=== PATIENT | male | born 1935 | race Caucasian/White ===

== ENCOUNTER 2017-08-10 10:14 | Day surgery (SDC) | payer MEDICARE, OTHER ==
[~2017-08-10] VITALS: Ht 174 cm; Wt 67.2 kg
[2017-08-10] VITALS (7 sets, daily range): BP systolic 118–137; BP diastolic 69–82; PULSE 72–90; RESP 18; TEMP 97.3–98.2; O2SAT 96–98
[~2017-08-10 10:14] MED LIST: ALPH1CAP3 PO; ASPI81TA82 PO; CALTTAB5 PO; CARB1DRO EACH EYE; CARV3.125 PO; DORZO2%O EACH EYE; FISH1000 PO; HYDR-3533 PO; JANU50TA5 PO; LANTUSP SQ; LATA.005%O EACH EYE; LISI-357 PO; MAGN500T4 PO; OMEP20TA PO; PENT400 PO; REST0.05 EACH EYE; ROSU40 PO; TAMS0.4C67 PO; VENL37.5 PO; VITA-13 PO; VITA500S3 SL; ZOLP5TAB3 PO
[2017-08-10] MEDS ORDERED: IOHEXOL 350 MG/ML 100 ML BTL (for Cath Lab) OTHER ONE (10:15)
[2017-08-10] MEDS ORDERED: ASPIRIN 81 MG CHEW TAB PO SCH (11:00)
[2017-08-10 11:21] LABS: AUTOMATED NEUTROPHIL # 5.2 TH/MM3 (1.8-7.7); BASOPHIL # 0.1 TH/MM3 (0-0.2); BASOPHIL % 0.8 % (0.0-2.0); EOSINOPHIL # 0.1 TH/MM3 (0-0.4); EOSINOPHIL % 1.5 % (0.0-4.0); HEMATOCRIT 44.5 % (39.0-51.0); HEMO FLAGS DIFF FINAL; LYMPH % 17.3 % (9.0-44.0); LYMPHOCYTE # 1.3 TH/MM3 (1.0-4.8); MEAN CELL VOLUME 92.9 FL (80.0-100.0); MEAN CORPUSCULAR HEMOGLOBIN 31.2 PG (27.0-34.0); MEAN CORPUSCULAR HGB CONC 33.6 % (32.0-36.0); MONO % 8.7 % (0.0-8.0); NEUT % 71.7 % (16.0-70.0); PLATELET COUNT 184 TH/MM3 (150-450); RED BLOOD COUNT 4.79 MIL/MM3 (4.50-5.90); RED CELL DISTRIBUTION WIDTH 14.2 % (11.6-17.2); WHITE BLOOD COUNT 7.2 TH/MM3 (4.0-11.0)
[2017-08-10 11:24] LABS: INTERNATIONAL NORMALIZED RATIO 0.9 RATIO; PROTHROMBIN TIME - PATIENT 10.1 SEC (9.8-11.6)
[2017-08-10] MEDS ORDERED: VITA100064 PO (11:24)
[2017-08-10] MEDS ORDERED: LISI10TA3 PO (11:24)
[2017-08-10] MEDS ORDERED: MAGN500T2 PO (11:24)
[2017-08-10] MEDS ORDERED: ASPI81CH CHEW (11:24)
[2017-08-10] MEDS ORDERED: SITA50TA PO (11:24)
[2017-08-10] MEDS ORDERED: OMEGCAP PO (11:24)
[2017-08-10] MEDS ORDERED: OMEP20TA PO (11:24)
[2017-08-10] MEDS ORDERED: CARV3.125 PO (11:24)
[2017-08-10] MEDS ORDERED: ALPH600C PO (11:24)
[2017-08-10] MEDS ORDERED: VITA500T4 PO (11:24)
[2017-08-10] MEDS ORDERED: VENL37.5 PO (11:24)
[2017-08-10] MEDS ORDERED: PENT400T PO (11:24)
[2017-08-10] MEDS ORDERED: LATA0.002 EACH EYE (11:24)
[2017-08-10] MEDS ORDERED: TAMS0.4C4 PO (11:24)
[2017-08-10] MEDS ORDERED: ROSU40 PO (11:24)
[2017-08-10] MEDS ORDERED: CALC600T PO (11:24)
[2017-08-10] MEDS ORDERED: DORZ2SOL EACH EYE (11:24)
[2017-08-10] MEDS ORDERED: GABA100C4 PO (11:24)
[2017-08-10] MEDS ORDERED: INSU1INJ18 SQ (11:24)
[2017-08-10 11:36] LABS: BICARBONATE 27.7 MEQ/L (21.0-32.0); POTASSIUM 3.6 MEQ/L (3.5-5.1)
[2017-08-10] MEDS ORDERED: HEPARIN-NS/PF INJ 500 ML ONE (12:51)
[2017-08-10] MEDS ORDERED: HEPARIN SODIUM - IV 10,000 UNITS/10 ML VIAL ONE (13:16)
[2017-08-10] MEDS ORDERED: NITROGLYCERIN INJ 5 ML ONE (13:16)
--- NOTE | 2017-08-10 14:04 | CATHPROC ---
[employer] HIS Report Study Information Study Number Admission Scheduled Start Study Start [id number] Aug 10 2017 10:14AM 08/10/2017 Aug 10 2017 12:15PM Study Type [place] [facility] Left Heart Cath Cardiac Catheterization Admit Source Facility Department Other [facility] - Tub Washer Physician and Clinical Staff Initial Scott Paul Soft Work Cigar Machine Operator Marylu Sparks,RAMAN Recorder Jeannine Reed,RT(R) Recorder Matt Elliott RCIS(BS) Scrub Deisy Russ,RT(R) Procedures Performed Procedure Location (Site) Vessel Name Coronary Angiograms LCA Left Coronary Coronary Angiograms RCA Right Coronary IVUS LEFT MAIN ARTERY-(11 Left Coronary L Heart Cath PTCA ADD ON'S Wire insertion Fem Art (right) Femoral Art Equipment Time Photo Manager Description Size Mfg Part Number Used/Scraped [id number] 13:30 S[employer] CRITICAL CARE WIRE, ASAHI PROWATER 180CM 180CM Used *[id number] TRANSDUCER, TRUWAVE [id number] 13:08 KELLER SOMERS * Used W/STOCKCOCK *[id number] [id number] *[id number] [id number] *[id number] *[id number] 13:08 [employer] INDUSTRIES PACK, CCL CUSTOM * Used *[id number] 13:08 [employer] PACER PEN, SKIN DUAL W/ RULER * Used *[id number] 13:15 [employer] MEDICAL 30 SIVAKUMAR INDEFLATOR Used *[id number] 13:18 [employer] MEDICAL SHEATH, FR6.5 PRELUDE 11CM FR 6.5 038ACT Used *[id number] 13:08 [employer] MEDICAL WIRE, 3MMJ .035 180CM 180CM Used *[id number] 13:08 NAMIC MANIFOLD, 4 PORT * Used *[id number] 13:08 NYCOMED OMNIPAQUE, 350 MG, 150ML 150ML [id number] Used [id number] 13:08 RAINES MEDICAL BLANKET,WARM AIR CCL * Used *[id number] 13:08 TERUMO MEDICAL SHEATH, FR4 TERUMO (10CM) FR 4 Used *[id number] 13:20 VOL[place]O CATHETER, VISION PV .018 55085 Used Equipment Model, Serial, Lot Number and Expiration Data Description Model Number Serial Number Lot Number Expiration Date CATHETER, VISION PV .018 [id number] 01-23-2019 History: Current Medications Medication Dosage/Unit Route Frequency Last Date/Time Taken LISINOPRIL Insulin CRESTOR ASA History: Allergies Allergy Reaction No Known Allergies History: Risk Factors Family History of Hypertension Dyslipidemia Previous ND Previous Heart Failure Premature CAD Yes Yes Yes No No Prior Valve Prior PCI Prior PCIDate Prior CABG Surgery No Yes 12/24/2009 No Cerebrovascular Peripheral Artery Chronic Lung On Dialysis Diabetes Diabetes Therapy Disease Disease Disease No No No No Yes Insulin History: Symptoms/Diagnosis Selection Items Chest pain History: Stress Tests Stress or Imaging Studies Performed Yes Standard Exercise Stress Test No Stress Echo No Stress Test SPECT Stress Test SPECT Result Stress Test SPECT Ischemia Risk/Extent Yes Positive High Stress Test CMR No Cardiac CTA Coronary Calcium Score No No History: Other Disease Selection Items CAD History: Other Current Smoker Method Quit Packs a Day Years Used Pack Years No Cigarettes 20 Years Ago 2 40 80 Labs Hgb (g/dl) Hct (%) WBC (l/cumm) Platelets (thousands) 11.60-17.00 35.00-51.00 4.00-11.00 150.00-450.00 15.0 44.5 7.2 184 Glucose (mg/dl) BUN (mg/dl) Creatinine (mg/dl) BUN:Creatinine (1:x) 74.00-106.00 7.00-18.00 0.50-1.30 10.00-20.00 166 12 0.7 17.1 Na (meq/l) K (meq/l) 136.00-145.00 3.50-5.10 142 3.6 CPK-MB (ng/ML) 0.50-3.60 Not Drawn Medication Medication Total Dose (Bolus/Oral) Medication Total Dosage/Unit 1% XYLOCAINE 20 mL Medications (Bolus/Oral) Medication Time Given Dosage/Unit Administered By Reason 1% XYLOCAINE 08/10/2017 1:06:53 PM 20 mL Scott Aviles 20 mL 1% XYLOCAINE given by Scott Aviles in Right Groin via Subcutaneous. Medication (Drip) Medication Time Given Dosage/Unit Concentration/Unit Diluent (ml) Solution 08/10/2017 12:26:26 IV Solutions 0 mL (IV) 500 NaCl .9 PM Patient arrived on IV Solutions in Left Antecubital via Peripheral IV. Pump/Drip Flow = 20 ml/hr usin g NaCl .9. Ordered by Scott Aviles. Initial Case Assessment Cardiovascular HR Rhythm NIBP Chest Pain 75 reg 110/61 0 Edema Present Skin color Skin None Normal Warm Circulatory - Right Pulses Dorsalis Pedis Posterior Tibial Femoral 1 d 3 Scale (0,1,2,3,4,d) Circulatory - Left Pulses Dorsalis Pedis Posterior Tibial Femoral 1 d 3 Scale (0,1,2,3,4,d) Circulatory - Lower Extremities Color Lower Right Color Lower Left Normal Normal Neurological State Oriented to time-place- Alert Moves all extremities person Respiration - General Respiration Rate SpO2 (%) (B/min) 8 97 Final Case Assessment Cardiovascular HR Rhythm NIBP Chest Pain 75 reg 110/61 0 Edema Present Skin color Skin None Normal Warm Circulatory - Right Pulses Dorsalis Pedis Posterior Tibial Femoral 1 d 3 Scale (0,1,2,3,4,d) Circulatory - Left Pulses Dorsalis Pedis Posterior Tibial Femoral 1 d 3 Scale (0,1,2,3,4,d) Circulatory - Lower Extremities Color Lower Right Color Lower Left Normal Normal Neurological State Oriented to time-place- Alert Moves all extremities person Respiration - General Respiration Rate SpO2 (%) (B/min) 8 97 Chronological Log Time Study Chronological Log 12:26:00 Patient arrived via Bed. 12:26:01 Patient Name, D.O.B, / Armband Verified By R.N. 12:26:02 Consent signed by the physician and the patient and verified by the Tub Washer staff. 12:26:03 Pre-op and post- op instructions given; patient acknowledges understanding of instructions. 12:26:14 Immediate Presedation assesment performed by physician. 12:26:18 Patient has been NPO for More than 6Hrs. Skin Breakdown-none 12:26:20 12:26:21 Patient Warmer Placed on the Table. 12:26:25 A # 20 IV was noted in the Antecubital (left). Grade = 0 Patient arrived on IV Solutions in Left Antecubital via Peripheral IV. Pump/Drip Flow = 20 ml/h r using NaCl .9. Ordered 12:: by Scott Aviles. 12:26:26 History and physical on the chart or being dictated. Assessment: Initial Case, HR=75 BPM, Rhythm=reg, YPVV=611/61 mmhg, Chest Pain=0, Edema=None, [place]=Normal, Skin = Warm Right Pulses: Wilder Ped=1, Post Tib=d, Femoral=3 Left Pulses: Wilder Ped=1, Post Tib=d, Femoral=3 12:26:27 Lower Right Extremities: Color=Normal Lower Left Extremities: Color=Normal Neurological: State=Alert, Ox3, MADDOX Respiration: Resp=8 B/min, SpO2=97 % 12:45:58 Reference ECG taken Vitals capture started with the following parameters, Patient=Adult, Interval=5 min, Initial Pr jescup=559 mmHg, 12:46:00 Deflation Rate=5 mmHg, Cuff placed on right Arm 12:46:42 HR=72 bpm, KREF=002/61 mmhg, SpO2=97.0 %, Resp=15 B/min, Pain=0, Gomez=10, Bae=2 12:49:17 Bilateral groins prepped with 2% chlorhexidine, and draped after a 3 minute waiting time. 12:49:23 MD paged 12:51:29 HR=79 bpm, UKDT=132/77 mmhg, SpO2=98.0 %, Resp=23 B/min, Pain=0, Gomez=10, Bae=2 12:54:49 Pressure channel 1 zeroed. 12:56:30 HR=73 bpm, BCNS=397/65 mmhg, SpO2=98.0 %, Resp=11 B/min, Pain=0, Gomez=10, Bae=2 13:01:27 HR=78 bpm, QXGG=653/76 mmhg, SpO2=98.0 %, Resp=14 B/min, Pain=0, Gomez=10, Bae=2 13:03:05 MD arrived. Time Out. Correct patient, correct procedure, correct physician, power injector not loaded with contrast with surgical 13:06:25 team present. Time Out Concurred by MD and individual staff in procedure. 13:06:30 HR=77 bpm, SPEN=577/81 mmhg, SpO2=98.0 %, Resp=23 B/min, Pain=0, Gomez=10, Bae=2 13:06:33 Case Start 13:06:46 Verbal Stimulation=2 Physical Stimulation=2 Airway=2 Respiration=2 TOTAL=8. (0=absent, 1=li mited, 2=present) 13:06:53 20 mL 1% XYLOCAINE given by Scott Aviles in Right Groin via Subcutaneous. 13:07:21 Access site was Right Femoral Artery. 13:07:25 A wire was inserted via Fem Art (right). 13:07:27 A SHEATH, FR4 TERUMO (10CM) FR 4 was advanced into the Fem Art (right) using the [place]o us technique. A JR 4.0 INFINITI CATHETER FR 4 was advanced over a wire. OMNIPAQUE, 350 MG, 150ML 150ML was us ed for 13:08:13 injections. Recorded Pressure: LV, HR=73, Condition=Condition 1 13:09:04 (Left Ventricle) LV 120/3/10 Recorded Pressure: LV, Ao, HR=74, Condition=Condition 1 13:09:09 (Left Ventricle) LV 120/3/10, (Aorta) Ao 129/63/91 13:09:45 The RCA was injected and visualized at various angles. OMNIPAQUE, 350 MG, 150ML 150ML used . Recorded Pressure: Ao, HR=75, Condition=Condition 1 13:09:53 (Aorta) Ao 123/62/87 13:11:33 HR=78 bpm, RWNQ=141/69 mmhg, SpO2=97.0 %, Resp=13 B/min, Pain=0, Gomez=10, Bae=2 13:13:08 Catheter was removed 13:13:09 A JL 4.0 INFINITI CATHETER FR 4 was advanced over a wire. contrast was used for injections. 13:15:04 The LCA was injected and visualized at various angles. OMNIPAQUE, 350 MG, 150ML 150ML used . 13:15:18 OMNIPAQUE, 350 MG, 150ML 150ML and 30 SIVAKUMAR INDEFLATOR added. 13:15:30 Catheter was removed 13:16:34 HR=77 bpm, LQOQ=980/75 mmhg, SpO2=98.0 %, Resp=13 B/min, Pain=0, Gomez=10, Bae=2 A SHEATH, FR6.5 PRELUDE 11CM FR 6.5 was exchanged in the Fem Art (right). This was necessary in order to 13:17:03 accomodate a larger catheter. 13:21:33 HR=74 bpm, YHRO=265/70 mmhg, SpO2=99.0 %, Resp=16 B/min, Pain=0, Gomez=10, Bae=2 A XB 3.5 GUIDE CATHETER FR 6 was advanced over a wire. OMNIPAQUE, 350 MG, 150ML 150ML was used for 13:22:36 injections. 13:26:36 HR=73 bpm, NYTU=983/68 mmhg, SpO2=99.0 %, Resp=14 B/min, Pain=0, Gomez=10, Bae=2 13:28:25 Activated Clotting Time Drawn 13:29:20 A WIRE, Compete PROWATER 180CM 180CM was inserted via Fem Art (right). 13:31:00 An CATHETER, VISION PV .018 was advanced through the lesion. Images saved onto IVUS hard d rive Recorded Pressure: Ao, HR=69, Condition=Condition 1 13:31:08 (Aorta) Ao 135/63/92 13:31:35 HR=71 bpm, VCXM=525/68 mmhg, SpO2=98.0 %, Resp=14 B/min, Pain=0, Gomez=10, Bae=2 13:32:00 IVUS in progress using CATHETER, VISION PV .018 13:33:32 IVUS catheter removed 13:36:38 HR=70 bpm, RGKV=244/66 mmhg, RdZ9=620.0 %, Resp=17 B/min, Pain=0, Gomez=10, Bae=2 13:40:00 Case End 13:40:00 Activated Clotting Time Drawn 13:41:39 HR=72 bpm, DRFQ=461/80 mmhg, SpO2=99.0 %, Resp=12 B/min, Pain=0, Gomez=10, Bae=2 13:42:38 ACT (Normal Range 90-180) = 248 13:46:38 HR=70 bpm, TSSP=151/71 mmhg, SpO2=99.0 %, Resp=21 B/min, Pain=0, Gomez=10, Bae=2 13:51:40 HR=72 bpm, PLSQ=777/73 mmhg, SpO2=98.0 %, Resp=13 B/min, Pain=0, Gomez=10, Bae=2 Assessment: Final Case, HR=75 BPM, Rhythm=reg, MZNC=423/61 mmhg, Chest Pain=0, Edema=None, Rogers r=Normal, Skin = Warm Right Pulses: Wilder Ped=1, Post Tib=d, Femoral=3 Left Pulses: Wilder Ped=1, Post Tib=d, Femoral=3 13:55:20 Lower Right Extremities: Color=Normal Lower Left Extremities: Color=Normal Neurological: State=Alert, Ox3, MADDOX Respiration: Resp=8 B/min, SpO2=97 % 13:56:37 HR=80 bpm, DMVW=557/95 mmhg, SpO2=99.0 %, Resp=15 B/min, Pain=0, Gomez=10, Bae=2 13:59:13 In the Fem Art (right) the SHEATH, FR6.5 PRELUDE 11CM FR 6.[address] by Scott Ramirez. 13:59:24 Sterile dressing applied to site 13:59:25 No case complications noted. 13:59:26 Cine recording checked. 13:59:28 Bedside Report will be given. 13:59:33 Contrast Scanned 13:59:38 A Left Heart Cath was performed. 13:59:44 Patient moved to [facility] End Study - Contrast Media Used In Study Contrast Total Opened (mL) Total Used (mL) Total Wasted (mL) Omnipaque 100 100 0 End Study - Maximum Contrast Load Max Contrast Load (mL) 488.6 End Study - Radiation Exposure Fluoro Time (minutes) 3.9 End Study - Patient Disposition Complications Transferred To Telemetry Bed
[2017-08-10] MEDS ORDERED: SODIUM CHLORIDE 0.9% FLUSH 10 ML FLUSH IV FLUSH PRN (14:15)
[2017-08-10] MEDS ORDERED: MISC INFORMATION XX ONE (14:15)
--- NOTE | 2017-08-10 14:58 | MA ---
cc: LISSET GRIMES M.D. DATE: 08/10/2017 PROCEDURE 1. Left heart catheterization. 2. Left ventriculography. 3. Coronary arteriography. 4. IVUS of the left main coronary artery. INDICATION Coronary artery disease, cardiomyopathy, diabetes mellitus, new onset cardiac symptoms of chest pain at rest, unstable angina, [place] Cardiovascular Society class 4 angina, CAD status post multiple PCI, large fixed defect in the posterior wall of the femoral apex, EF 49%. DETAILS OF PROCEDURE The patient was brought to the cardiac catheterization laboratory and prepped and draped in the usual sterile fashion. 10 cc of 1% lidocaine was used to locally anesthetize the right common femoral artery. A 4 Croatian sheath was successfully placed in the right common femoral artery. 4 Croatian JR4 and JL4 catheters were used to perform left and right coronary angiography and left venriculography. FINDINGS The LV pressure is 120/5-8. Ejection fraction 50%. The posterior wall is moderate to severely hypokinetic. The right coronary is fibrocalcific fluoroscopically in the proximal to mid segment. There is a focal 80% stenosis in the proximal segment. A long tubular 40-50% stenosis in the proximal to mid segment. The distal segment has mild diffuse disease to 30% angiographically. The right posterior descending coronary artery has a long ostial proximal 70% stenosis with a 45 degree angulation off the right WILLY which is a moderate-sized vessel. The left main coronary artery is heavily calcified fluoroscopically with a large filling defect in the distal segment of the left main. The left circumflex vessel has mild diffuse disease in the proximal segment up to 20% angiographically. The first obtuse marginal vessel is a medium-sized vessel with no significant disease angiographically. There are three small posterolateral arteries. The first vessel has mild diffuse disease up to 10-20% angiographically. The WILLY has 70% ostial proximal stenosis. The more distal left posterolateral artery has no significant disease angiographically. The LAD is fibrocalcific fluoroscopically. In the proximal to mid segment there is a long 60-70% ostial proximal stenosis. The stent in the mid segment is widely patent. The mid to distal segment has a hazy fibrocalcific, probably 50-60% stenosis at least. After a bifurcation with a mid to distal diagonal vessel there is diffuse disease up to 70% angiographically. The LAD is transapical. The first diagonal artery is a medium-sized vessel with mild diffuse disease in the ostial proximal segment up to 20% angiographically. A 6 Croatian sheath was exchanged for the 4 Croatian sheath. 70 units per kilo of heparin was given with an ACT of 248. A 6 Croatian XB 3.5 guide and a 0.014 [place] guidewire was placed into the mid to distal LAD. I attempted to place an IVUS probe into the left main. I could not advance the IVUS probe beyond the distal left main. There was heavy concentric calcification. The minimal luminal area was approximately 4 mm squared. The maximal diameter was 2.5 mm by a minimal diameter of 1.8 mm. CONCLUSIONS 1. New onset cardiac symptoms of severe fatigue with chest pain at rest, diabetes mellitus, heavily calcified left main lesion with minimal luminal area of 4 mm squared with concentric calcification otherwise moderate to severe three-vessel coronary artery disease in a right-dominant system, history of multiple PCIs in the LAD, and history of insulin dependent diabetes. 2. Normal LV systolic function at 50%. RECOMMENDATIONS Recommend CT surgery consult for consideration, risks and benefits of CABG. MD MIRIAM Rodriguez/SALVADOR /1:44 PM /2:38 PM
--- NOTE | 2017-08-10 16:23 | PD.CAR.PN ---
CVT Progress Note Subjective/Hospital Course: sts data discussed with pt RISK SCORES About the STS Risk Calculator Procedure: CAB Only Risk of Mortality: 1.913% Morbidity or Mortality: 13.334% Long Length of Stay: 6.256% Short Length of Stay: 37.757% Permanent Stroke: 1.195% Prolonged Ventilation: 9.021% DSW Infection: 0.421% Renal Failure: 2.342% Reoperation: 5.148% Objective: Vital Signs Date Time Temp Pulse Resp B/P (MAP) Pulse Ox O2 Delivery O2 Flow Rate FiO2 08/10/17 14:06 99 Room Air 08/10/17 11:03 97.6 90 18 136/82 (100) 98 Labs: Laboratory Tests Test 08/10/17 10:57 White Blood Count 7.2 TH/MM3 (4.0-11.0) Red Blood Count 4.79 MIL/MM3 (4.50-5.90) Hemoglobin 15.0 GM/DL (13.0-17.0) Hematocrit 44.5 % (39.0-51.0) Mean Corpuscular Volume 92.9 FL (80.0-100.0) Mean Corpuscular Hemoglobin 31.2 PG (27.0-34.0) Mean Corpuscular Hemoglobin Concent 33.6 % (32.0-36.0) Red Cell Distribution Width 14.2 % (11.6-17.2) Platelet Count 184 TH/MM3 (150-450) Mean Platelet Volume 8.0 FL (7.0-11.0) Neutrophils (%) (Auto) 71.7 % (16.0-70.0) Lymphocytes (%) (Auto) 17.3 % (9.0-44.0) Monocytes (%) (Auto) 8.7 % (0.0-8.0) Eosinophils (%) (Auto) 1.5 % (0.0-4.0) Basophils (%) (Auto) 0.8 % (0.0-2.0) Neutrophils # (Auto) 5.2 TH/MM3 (1.8-7.7) Lymphocytes # (Auto) 1.3 TH/MM3 (1.0-4.8) Monocytes # (Auto) 0.6 TH/MM3 (0-0.9) Eosinophils # (Auto) 0.1 TH/MM3 (0-0.4) Basophils # (Auto) 0.1 TH/MM3 (0-0.2) CBC Comment DIFF FINAL Differential Comment Prothrombin Time 10.1 SEC (9.8-11.6) Prothromb Time International Ratio 0.9 RATIO Blood Urea Nitrogen 12 MG/DL (7-18) Creatinine 0.78 MG/DL (0.60-1.30) Random Glucose 166 MG/DL (74-106) Calcium Level 9.2 MG/DL (8.5-10.1) Sodium Level 142 MEQ/L (136-145) Potassium Level 3.6 MEQ/L (3.5-5.1) Chloride Level 105 MEQ/L (98-107) Carbon Dioxide Level 27.7 MEQ/L (21.0-32.0) Anion Gap 9 MEQ/L (5-15) Estimat Glomerular Filtration Rate 96 ML/MIN (>89) Result Diagram: 08/10/17 1057 08/10/17 1057 Johnna Boggs Aug 10, 2017 16:23
[2017-08-10 18:40] LABS: BLOOD, URINE NEG (NEG); GLUCOSE,URINE TRACE mg/dL (NEG); KETONE, URINE NEG (NEG); NITRITE,URINE NEG (NEG); URINE COLOR YELLOW (YELLW/STRAW)
[2017-08-10 18:43] LABS: COMMENT (UR) CULT NOT INDICATED; CULTURE IF INDICATED CULT NOT INDICATED
--- NOTE | 2017-08-10 19:10 | RADRPT ---
EXAM DATE/TIME: 08/10/2017 18:02 [facility] COMPARISON: No previous studies available for comparison. INDICATIONS : Preop cardiac surgery. MEDICAL HISTORY : Hypercholesterolemia. Renal calculi. Benign prostatic hyperplasia, (BPH) [place] ma. Neuropathy. Migraines. Chest pain. HTN. Sleep apnea. GERD. Renal disease. Arthritis. Diabetes. Ba ruiz cell carcinoma. SURGICAL HISTORY : Tonsillectomy. Appendectomy. Inguinal hernia repair. Adenoidectomy. Anterior c ervical fusion. Lumbar fusion. Left shoulder nerve repair. Bilateral TKR. Cardiac cath. ENCOUNTER: Initial ACUITY: 1 day PAIN SCORE: 0/10 LOCATION: Bilateral neck PEAK SYSTOLIC VELOCITIES (cm/sec): ICA/CCA RATIO: Right: 1.3 Left: 1.3 ICA: Right: 115 Left: 117 CCA: Right: 87 Left: 93 ECA: Right: 131 Left: 88 VERTEBRAL: Right: 48 antegrade Left: 37 antegrade Elevated flow velocities and ICA/CCA ratios have been found to correlate with increased degrees of vessel stenosis, calculated as percentage of diameter relative to a normal segment of distal ICA/CCA FINDINGS: RIGHT CAROTID: No significant stenosis is visualized. The waveforms are within normal limits. Mi ld calcific plaquing at the bulb and distal segments of the carotid. LEFT CAROTID: No significant stenosis is visualized. The waveforms are within normal limits. Mod erate calcific plaquing at the left bulb extending into the initial segment the internal carotid. VERTEBRAL ARTERIES: Antegrade flow is seen in both vertebral arteries. MISCELLANEOUS: None. CONCLUSION: No evidence of anatomic or physiologic stenosis. Atherosclerotic plaque in carotid bu lbs initial segment of the internal carotids which is minimum on the right and moderate on the left Oswaldo Russ MD on August 10, 2017 at 19:07 Board Certified Radiologist. This report was verified electronically.
--- NOTE | 2017-08-10 20:33 | RADRPT ---
EXAM DATE/TIME: 08/10/2017 18:17 [facility] COMPARISON: No previous studies available for comparison. INDICATIONS : Preop cardiac surgery. MEDICAL HISTORY : Hypercholesterolemia. Renal calculi. Benign prostatic hyperplasia, (BPH) Glaucoma. Neuropathy. Migrai awais. Chest pain. HTN. Sleep apnea. GERD. Renal disease. Arthritis. Diabetes. Basal cell carcinoma. SURGICAL HISTORY : Tonsillectomy.Appendectomy. Inguinal hernia repair.Adenoidectomy. Anterior cervical fusion. Lumbar fu rubin. Left shoulder nerve repair. Bilateral TKR. Cardiac cath. ENCOUNTER: Initial ACUITY: 1 day PAIN SCORE: 0/10 LOCATION: Bilateral leg. TECHNIQUE: Venous ultrasound of the left and right leg was performed from the inguinal ligament to the proximal calf. Real-time, color Doppler and spectral tracing, compression and augmentation techniques were us ed. FINDINGS: RIGHT LEG: There is normal compressibility of the deep venous system from the inguinal region to the proximal ca lf. No echogenic clot is seen in the lumen of the common femoral, femoral, popliteal, and posterior tibial veins. There is a normal response of the venous system to proximal and distal augmentation an d respiration. Iliac vein patent LEFT LEG: There is normal compressibility of the deep venous system from the inguinal region to the proximal ca lf. No echogenic clot is seen in the lumen of the common femoral, femoral, popliteal, and posterior tibial veins. There is a normal response of the venous system to proximal and distal augmentation an d respiration. Iliac vein patent CONCLUSION: Normal examination. No evidence DVT Oswaldo Russ MD on August 10, 2017 at 20:31 Board Certified Radiologist. This report was verified electronically.
[2017-08-10] MEDS: SODIUM CHLORIDE 0.9% FLUSH 10 ML FLUSH IV FLUSH SCH (21:00)
[2017-08-10] MEDS ORDERED: ACETAMINOPHEN 500 MG CPLT PO PRN (21:15)
--- NOTE | 2017-08-10 21:28 | EKG ---
Date Performed: 08/10/2017 Time Performed: 11:13:16 PTAGE: 82 years EKG: Sinus rhythm with PAC(s). Abnormal ECG PREVIOUS TRACING : 11/02/2014 09.33 Compared to prior tracing no significant change DOCTOR: Natalia Lazar Interpretating Date/Time 08/10/2017 21:26:48
[2017-08-10 22:42] LABS: INDIRECT BILIRUBIN 0.4 MG/DL (0.0-0.8); TOTAL BILIRUBIN ADULT 0.5 MG/DL (0.2-1.0)
--- NOTE | 2017-08-10 23:08 | RADRPT ---
EXAM DATE/TIME: 08/10/2017 18:24 [facility] COMPARISON: No previous studies available for comparison. INDICATIONS : Preop cardiac surgery. MEDICAL HISTORY : Hypercholesterolemia. Renal calculi. Benign prostatic hyperplasia, (BPH) Glaucoma. Neuropathy. Migrai awais. Chest pain. HTN. Sleep apnea. GERD. Renal disease. Arthritis. Diabetes. Basal cell carcinoma. SURGICAL HISTORY : Tonsillectomy. Appendectomy. Inguinal hernia repair. Adenoidectomy. Anterior cervical fusion. Lumbar fusion. Left shoulder nerve repair. Bilateral TKR. Cardiac cath. ENCOUNTER: Initial ACUITY: 1 day PAIN SCORE: 0/10 LOCATION: Bilateral leg. GREATER SAPHENOUS VEIN THIGH: PROXIMAL: Right 4 mm Left 6 mm MID: Right 5 mm Left 4 mm DISTAL: Right 5 mm Left 3 mm CALF: PROXIMAL: Right 4 mm Left 2 mm MID: Right 4 mm Left 2 mm DISTAL: Right 3 mm Left 1 mm FINDINGS: The venous system of the lower extremities are patent by color Doppler imaging. Measurements of the leg veins (in mm) are listed above. CONCLUSION: 1. Venous mapping as above Josue Kim MD on August 10, 2017 at 23:07 Board Certified Radiologist. This report was verified electronically.
[2017-08-11] VITALS (15 sets, daily range): BP systolic 110–118; BP diastolic 64–84; PULSE 64–88; RESP 16–18; TEMP 97.6–99; O2SAT 94–97
[2017-08-11 07:00] LABS: AUTOMATED NEUTROPHIL # 4.1 TH/MM3 (1.8-7.7); BASOPHIL # 0.1 TH/MM3 (0-0.2); EOSINOPHIL # 0.1 TH/MM3 (0-0.4); EOSINOPHIL % 1.7 % (0.0-4.0); HEMATOCRIT 40.1 % (39.0-51.0); HEMO FLAGS DIFF FINAL; LYMPH % 22.2 % (9.0-44.0); LYMPHOCYTE # 1.4 TH/MM3 (1.0-4.8); MEAN CORPUSCULAR HEMOGLOBIN 32.3 PG (27.0-34.0); MEAN CORPUSCULAR HGB CONC 35.2 % (32.0-36.0); NEUT % 65.1 % (16.0-70.0); PLATELET COUNT 144 TH/MM3 (150-450); RED BLOOD COUNT 4.36 MIL/MM3 (4.50-5.90); RED CELL DISTRIBUTION WIDTH 14.5 % (11.6-17.2); WHITE BLOOD COUNT 6.4 TH/MM3 (4.0-11.0)
[2017-08-11 07:33] LABS: BICARBONATE 23.1 MEQ/L (21.0-32.0); POTASSIUM 3.5 MEQ/L (3.5-5.1)
--- NOTE | 2017-08-11 08:26 | MB ---
cc: JACKIE ROGEL DATE OF CONSULTATION 08/10/2017 DATE OF 1935 HISTORY OF THE PRESENT ILLNESS An 82-year-old male patient of Dr. Michele Meehan, Dr. Scott Aviles who has been having some intermittent fleeting chest discomfort left side of his chest radiating to the middle of his chest, non radiating to his arms. Occasional lightheadedness. Shortness of breath. He does have some pain in his lower extremities when he is walking. He underwent a myocardial perfusion study 07/21/2017, large inferior wall fixed defect. He underwent cardiac cath today which showed 60% left main disease, proximal LAD 60%, mid distal LAD 60, RCA 80% stenosed. We were consulted to evaluate for coronary artery bypass grafting. Ejection fraction of 50%. PAST MEDICAL HISTORY Significant for: 1. Hyperlipidemia. 2. Diabetes mellitus. 3. History of vertigo. 4. Peripheral arterial disease. 5. Benign prostatic hypertrophy. 6. Glaucoma. PAST SURGICAL HISTORY Surgeries include: 1. Bilateral knee replacements. 2. Appendectomy. 3. Left hernia repair. 4. L3-L4 decompression laminectomy in 2010. ALLERGIES NO KNOWN ALLERGIES. MEDICATIONS Home medications include: 1. Flomax 0.4. 2. Pentoxifylline. 3. Crestor. 4. Fish oil. 5. Coreg. 6. Lisinopril. 7. Aspirin. 8. Gabapentin. 9. Effexor. 10. Calcium. 11. Magnesium oxide. 12. Janumet XR. 13. Basaglar Kwikpen. FAMILY HISTORY Noncontributory. SOCIAL HISTORY The patient , two children, one son lives in [facility], one in [place]. Smoked for approximately 30 years, quit 20 years ago. Occasional beer. REVIEW OF SYSTEMS GENERAL: No night sweats, fever, heat and cold intolerance. SKIN: No psoriasis, itching or hives. HEENT: No blurred vision, hearing loss. RESPIRATORY: No cough, shortness of breath. CARDIOVASCULAR: As above in the HPI. GASTROINTESTINAL: No diarrhea, vomiting. GENITOURINARY: No burning, frequency, urgency. CENTRAL NERVOUS SYSTEM: No history of TIA, CVA, seizure disorder. ENDOCRINE: Positive for diabetes. PHYSICAL EXAMINATION VITAL SIGNS: On exam blood pressure 130/80, heart rate of 80, afebrile. Room air sat 99. GENERAL: Patient is awake, alert, no acute distress. HEENT: Head is normocephalic, atraumatic. Pupils equal and reactive. Oral mucosa pink, moist. NECK: Supple. No JVD. CARDIOVASCULAR: Heart sounds S1-S2, regular rate and rhythm. Normal audible rubs, murmurs, gallops. LUNGS: Clear to auscultation. No wheezes, rales or rhonchi. ABDOMEN: Soft, nontender. No masses or organomegaly. EXTREMITIES: No cyanosis, clubbing or edema. LABORATORY DATA Shows hemoglobin 15, hematocrit of 44, white cell count 7, platelet count 184. Sodium 142, potassium 3.6, BUN 12, creatinine 0.78, glucose 166. INR was 0.9. IMPRESSION This is a very pleasant 82-year-old male with multivessel disease, EF of 50%. Coronary films will be evaluated by Dr. Jackie Rogel. The procedures, alternatives and risks discussed with the patient. Planning will be for coronary artery bypass graft two to three on August 19, 2017. In the meantime will obtain pulmonary function testing, lower extremity vein mapping and ultrasound and also carotid ultrasound and chest x-ray. Depending upon this we will continue to plan for August 19, 2017. Dictated by ALICIA Merida MD GIBSON Novak/JORDI /4:21 PM /8:21 AM
[2017-08-11] MEDS ORDERED: ASPIRIN 81 MG CHEW TAB PO SCH (09:00)
[2017-08-11] MEDS: SODIUM CHLORIDE 0.9% FLUSH 10 ML FLUSH IV FLUSH SCH (09:47)
[2017-08-11 16:03] LABS: HEMOGLOBIN A1a 1.3 %; HEMOGLOBIN A1b 1.9 %; HEMOGLOBIN Ao 83.5 %; HEMOGLOBIN LA1C 1.9 %; HEMOGLOBIN P3 3.9 %
--- NOTE | 2017-08-12 07:26 | EKG ---
Date Performed: 08/10/2017 Time Performed: 15:44:58 PTAGE: 82 years EKG: Normal Sinus rhythm WA interval is .16 Generalized low voltage Poor initial anterior forces V1,V2 which may be normal va riant Compared to prior tracing no significant change Abnormal ECG PREVIOUS TRACING : 08/10/2017 11.13 DOCTOR: Rivera Fox Interpretating Date/Time 08/12/2017 07:24:59
--- NOTE | 2017-08-12 07:26 | EKG ---
Date Performed: 08/11/2017 Time Performed: 05:50:50 PTAGE: 82 years EKG: Sinus rhythm Poor R wave progression - probable normal variant Compared to previous tracing QRS voltage in precor dial leads are more normal, otherwise no significant change Borderline ECG PREVIOUS TRACING : 08/10/2017 15.44 DOCTOR: Rievra Fox Interpretating Date/Time 08/12/2017 07:25:28
== END 2017-08-11 13:58 | disposition home or self-care (01) ==
LOC: HDOC 10:14 → HDIC 10:15 → HCIN 17:44 → HDOC 08-11 13:58
PROVIDERS: ATTEND Internal Medicine Interventional Cardiology
DX: I25.110 Atherosclerotic heart disease of native coronary artery with unstable angina pectoris (principal); E11.9 Type 2 diabetes mellitus without complications; Z01.810 Encounter for preprocedural cardiovascular examination
CPT/HCPCS: 80048; 80076; 81001; 82550; 83036; 85002; 85025; 85610; 86850; 86900; 86901; 87641; 92978; 93005; 93458; 93880; 93970; 93998; C1753; C1769; C1887; C1893; J1644; Q9967

== ENCOUNTER 2017-08-19 05:19 | Inpatient (IN) | payer MEDICARE, OTHER ==
[~2017-08-19] VITALS: Ht 174 cm; Wt 69.4 kg
[2017-08-19] VITALS (9 sets, daily range): BP systolic 88–158; BP diastolic 48–89; PULSE 66–88; RESP 12–16; TEMP 97.8–98.8; O2SAT 94–99
[~2017-08-19 05:19] MED LIST changes: -ALPH1CAP3 PO; +ALPH600C PO; +ASPI81CH CHEW; -ASPI81TA82 PO; +CALC600T PO; -CALTTAB5 PO; -CARB1DRO EACH EYE; +DORZ2SOL EACH EYE; -DORZO2%O EACH EYE; -FISH1000 PO; +GABA100C4 PO; -HYDR-3533 PO; +INSU1INJ18 SQ; -JANU50TA5 PO; -LANTUSP SQ; -LATA.005%O EACH EYE; +LATA0.002 EACH EYE; -LISI-357 PO; +LISI10TA3 PO; +MAGN500T2 PO; -MAGN500T4 PO; +OMEGCAP PO; -PENT400 PO; +PENT400T PO; -REST0.05 EACH EYE; +SITA50TA PO; +TAMS0.4C4 PO; -TAMS0.4C67 PO; -VITA-13 PO; +VITA100064 PO; -VITA500S3 SL; +VITA500T4 PO; -ZOLP5TAB3 PO
[2017-08-19] MEDS ORDERED: LACTATED RINGER'S 1000 ML IV PRN (06:00)
[2017-08-19] MEDS ORDERED: SODIUM CHLORID 0.9% 500 ML IV PRN (06:00)
[2017-08-19] MEDS ORDERED: ceFAZolin 2 GM PREMIX 50 ML IV SCH (06:00)
[2017-08-19] MEDS ORDERED: SODIUM CHLORIDE 0.9% FLUSH 10 ML FLUSH IV FLUSH PRN ×3 (06:00→11:00)
[2017-08-19] MEDS ORDERED: METOPROLOL TARTRATE 25 MG TAB PO SCH (06:00)
[2017-08-19] MEDS ORDERED: POVIDONE IODINE 5% (ANTISEPSIS KIT) 4 APPLICATIONS EACH NARE PRN (06:00)
[2017-08-19] MEDS ORDERED: CHLORHEXIDINE GLUCONATE 2 % 1 PACK (2 CLOTHS) TOPICAL PRN (06:00)
[2017-08-19] MEDS ORDERED: PAPAVERINE 60 MG-NITROGLYCERIN 100 MCG-DILTIAZEM 100 MG in NS 100 ML IRRIGATION SCH ×4 (06:00)
[2017-08-19] MEDS ORDERED: CHLORHEXIDINE GLUCONATE 4% SOLN 120 ML BTL TOPICAL SCH (06:00)
[2017-08-19] MEDS ORDERED: CEFAZOLIN 500 MG in NS IRR BTL 500 ML IRRIGATION SCH (06:00)
[2017-08-19] MEDS ORDERED: DEXTROSE 50% IN WATER 50 ML VIAL(D50) IV PUSH PRN ×2 (06:00→11:00)
[2017-08-19] MEDS ORDERED: METOPROLOL TARTRATE 25 MG TAB PO PRN (06:00)
[2017-08-19] MEDS ORDERED: INSULIN HUMAN REGULAR 1,000 UNITS/10 ML VIAL SQ PRN (06:00)
[2017-08-19] MEDS ORDERED: CARV6.252 PO (06:11)
[2017-08-19] MEDS ORDERED: DORZ2SOL15 EACH EYE (06:11)
[2017-08-19] MEDS ORDERED: LANTUS2P SQ (06:13)
--- NOTE | 2017-08-19 06:17 | RADRPT ---
EXAM DATE/TIME: 08/19/2017 05:51 [facility] COMPARISON: No previous studies available for comparison. INDICATIONS : Evaluate for pneumonia, pneumothorax, or communicable disease. Pre op CABG. MEDICAL HISTORY : Hypercholesterolemia. Renal calculi. Benign prostatic hyperplasia, (BPH), Glaucoma. Neuropathy. Migra maribell. Chest pain. HTN. Sleep apnea. GERD. Renal disease. Arthritis Diabetes. Basal cell carcinoma. SURGICAL HISTORY : Fusion, cervical. Fusion, lumbar. Tonsillectomy. Appendectomy. Inguinal hernia repair. Adenoidectomy . Left shoulder nerve repair. Bilateral TKR. Cardiac cath ENCOUNTER: Initial ACUITY: 1 day PAIN SCORE: 0/10 LOCATION: Bilateral chest FINDINGS: A single view of the chest demonstrates the lungs to be symmetrically aerated without evidence of mas s, infiltrate or effusion. The cardiomediastinal contours are unremarkable. Osseous structures are intact. CONCLUSION: No acute disease. Enrique Echeverria MD on August 19, 2017 at 6:15 Board Certified Radiologist. This report was verified electronically.
[2017-08-19] MEDS ORDERED: VENL150T PO (06:19)
[2017-08-19] MEDS ORDERED: METH500T3 PO (06:19)
[2017-08-19] MEDS ORDERED: ZOLP10TA3 PO (06:21)
[2017-08-19] MEDS ORDERED: DONE5TAB7 PO (06:28)
[2017-08-19] MEDS ORDERED: L-MECAP2 PO (06:28)
[2017-08-19] MEDS ORDERED: BUTACAP77 PO (06:28)
[2017-08-19] MEDS ORDERED: MELA5TAB15 PO (06:29)
[2017-08-19] MEDS ORDERED: VANCOMYCIN HCL 1000 MG VIAL ONE (06:33)
[2017-08-19] MEDS ORDERED: ceFAZolin 2 GM PREMIX 50 ML ONE (06:33)
[2017-08-19] MEDS ORDERED: HEPARIN SODIUM - SQ 10,000 UNITS/ML VIAL ONE (06:33)
[2017-08-19] MEDS ORDERED: methylPREDNISolone SOD SUCC 125 MG/2 ML VIAL ONE (06:33)
[2017-08-19] MEDS ORDERED: CARDIOPLEGIC IRR 2,000 ML ONE (07:10)
[2017-08-19] MEDS ORDERED: ALBUMIN 25% INJ 50 ML IV ONE (07:11)
[2017-08-19] MEDS ORDERED: HEPARIN SODIUM - IV 10,000 UNITS/10 ML VIAL ONE (07:11)
[2017-08-19] MEDS ORDERED: POTASSIUM CHLORIDE 40 MEQ/20 ML VIAL ONE (07:11)
[2017-08-19] MEDS ORDERED: SODIUM BICARBONATE 8.4% INJ 50 ML ONE (07:12)
[2017-08-19] MEDS ORDERED: MANNITOL INJ 100 ML ONE (07:12)
[2017-08-19] MEDS: INSULIN REGULAR 100 UNITS in NS 100 ML IV PRN ×2 (08:00→13:32)
[2017-08-19] MEDS ORDERED: CUSTODIOL HTK IRR SOLN 0 ML ONE (08:22)
[2017-08-19] MEDS ORDERED: SODIUM CHLORIDE 0.9% INJ 50 ML ONE (10:15)
[2017-08-19] MEDS ORDERED: DEXMEDETOMIDINE HCL 200 MCG/2 ML VIAL ONE (10:15)
[2017-08-19] MEDS ORDERED: POTASSIUM CHLOR 20 MEQ PREMIX 100 ML IV PRN ×3 (11:00)
[2017-08-19] MEDS ORDERED: ACETAMINOPHEN 650 MG SUPP RECTAL PRN (11:00)
[2017-08-19] MEDS ORDERED: hydrALAZINE HCL 20 MG/ML VIAL IV PUSH PRN (11:00)
[2017-08-19] MEDS ORDERED: MAGNESIUM SULFATE INJ 2 GM in SODIUM CHLORIDE 0.9% INJ 100 ML IV PRN ×4 (11:00)
[2017-08-19] MEDS ORDERED: CALCIUM CHLORIDE 10% 1 GRAM/10 ML VIAL IV PUSH PRN (11:00)
[2017-08-19] MEDS ORDERED: INSULIN REGULAR (IV INFUSION) 100 UNITS in SODIUM CHLORIDE 0.9% INJ 99 ML IV PRN (11:00)
[2017-08-19] MEDS ORDERED: Post-op Orders (for Pharmacy) MISC OTHER ONE (11:00)
[2017-08-19] MEDS ORDERED: ALBUMIN 5% INJ 250 ML IV PRN (11:00)
[2017-08-19] MEDS ORDERED: RESP: ALBUTEROL 2.5 MG/IPRATROPIUM 0.5 MG NEB (PRN) NEB (11:00)
[2017-08-19] MEDS ORDERED: POTASSIUM CHLORIDE 20 MEQ CONTROLLED RELEASE TAB PO PRN ×2 (11:00)
[2017-08-19] MEDS ORDERED: CALCIUM CHLORIDE INJ 1 GM in SODIUM CHLORIDE 0.9% INJ 100 ML IV PRN (11:00)
[2017-08-19] MEDS ORDERED: DEXMEDETOMIDINE INJ 200 MCG in SODIUM CHLORIDE 0.9% INJ 50 ML IV PRN (11:00)
[2017-08-19] MEDS ORDERED: METHOCARBAMOL 500 MG TAB PO PRN (11:00)
[2017-08-19] MEDS ORDERED: CLEVIDIPINE INJ 50 ML IV PRN (11:00)
[2017-08-19] MEDS ORDERED: METOPROLOL TARTRATE 5 MG/5 ML VIAL IV PUSH PRN (11:00)
[2017-08-19] MEDS ORDERED: SODIUM BICARBONATE 8.4% SOLN 50 MEQ/50 ML VIAL IV PUSH PRN ×2 (11:00)
[2017-08-19] MEDS ORDERED: ceFAZolin INJ 1,000 MG VIAL ONE (11:16)
--- NOTE | 2017-08-19 11:17 | PD.OP ---
cc: Scott Aviles MD; Jackie Rogel MD Operative Report Date of Surgery: Aug 19, 2017 Preoperative Diagnosis: (1) Angina pectoris (2) CAD (coronary artery disease) Postoperative Diagnosis: same Procedure: CABG x 3 CAIN to LAD - very poor SVG to OM1 - fair SVG to PDA - fair EVH Anesthesia: Dr. Elise Surgeon: Jackie Rogel Channel Marketing Manager(s): Yakov AVILA Operation and Findings: The risks, benefits, complications, treatment options, and expected outcomes were discussed with the patient. The possibilities of reaction to medication, pulmonary aspiration, perforation of viscus, bleeding, recurrent infection, the need for additional procedures, failure to diagnose a condition, and creating a complication requiring transfusion or operation were discussed with the patient. The patient concurred with the proposed plan, giving informed consent. The site of surgery properly noted/marked. The patient was taken to Operating Room, identified as Lele Lyman and the procedure verified as CABG, EVH. A Time Out was held and the above information confirmed. Standard monitoring lines and Chris catheter were placed. General anesthesia was induced. The patient was prepped and draped in a sterile fashion. A median sternotomy was performed and electrocautery was used to obtain hemostasis. The left internal mammary artery was procured as a pedicle from the 7th rib to the 1st rib in the usual manner. Simultaneously left greater saphenous vein was procured from the left leg using a minimally invasive endoscopic technique. The vein was prepared for anastomosis and the leg wound was irrigated and closed in 2 layers. The pericardium was opened and a pericardial sling was created using interrupted 0 silk sutures. The patient was heparinized for cardiopulmonary bypass and the distal mammary pedicle was instrumented for anastomosis. The heart was instrumented for cardiopulmonary bypass in the usual manner. Antegrade blood cardioplegia was employed. The patient was placed on cardiopulmonary bypass. An aortic cross-clamp was applied and the heart was arrested using cold blood cardioplegia. Antegrade cardioplegia was administered after he each anastomosis. After adequate arrest, the distal right coronary circulation was investigated and the PDA was opened with a Yuhaaviatam blade and found to be a 1.5 millimeter diffusely calcified fair target. Saphenous vein was approximated to the PDA artery using a running 7 0 Prolene suture. The graft was measured for length and orientation and the proximal anastomosis was constructed to the ascending aorta using a running 5 0 Prolene suture after creating an aortotomy with a 5 millimeter punch. The 1st circumflex marginal artery was then opened with a Yuhaaviatam blade and found to be a 1.5 millimeter diffusely diseased fair target. Saphenous vein was approximated to the OM1 artery using a running 7 0 Prolene suture. The graft was measured for length and orientation and was suspended from the pericardium. The LAD was diffusely calcified along its entire length. The distal LAD was opened with a Yuhaaviatam blade and found to be a 1 millimeter very poor target. The left internal mammary artery was approximated to the LAD using a running 7 0 Prolene suture. The pedicle was attached to the epicardium using interrupted 5 0 silk suture. The patient was systemically rewarmed and received a hotshot dose of warm blood cardioplegia. The aorta was vented and the proximal anastomosis to the OM1 graft was accomplished using a running 5 0 Prolene suture after creating an aortotomy was a 5 millimeter punch. The cross -clamp was removed and all proximal and distal anastomoses were examined for hemostasis. The patient was weaned from cardiopulmonary bypass. Protamine was given. There was no adverse reaction. Decannulation was carried out without incident. Wound was checked for hemostasis which was obtained using electrocautery. A 36 Thai mediastinal and 32 Thai left pleural chest tubes were placed and secured to the skin with 0 silk suture. The sternum was closed with stainless steel wire. The fascia was closed with 1. PDS. The subcutaneous tissue was closed using a running 2-0 Vicryl suture. The skin was closed with 4- 0 Monocryl. Sterile dressings were placed. At the end of the operation, all sponge, instruments, and needle counts were correct. The patient was transferred to the CVICU in stable condition. Findings: Diffusely calcified coronary arteries XC: 57 min CPB: 69 min Drains: mediastinal x 1 pleural x 1 Complications: none Disposition: to CVICU in stable condition Jackie Rogel MD Aug 19, 2017 11:17
--- NOTE | 2017-08-19 12:58 | PD.CAR.PN ---
CVT Progress Note Subjective/Hospital Course: 82/ male hx of recent chest pain , unstable angina, + stress / underwent heart cath multi vessel disease EF 50% admitted electively for surgery PMH: CAD, DM, PAD, vertigo , BPH, glaucoma surgery :08/19 CABG x 3 CAIN to LAD - very poor SVG to OM1 - fair SVG to PDA - fair EVH Objective: Vital Signs Date Time Temp Pulse Resp B/P (MAP) Pulse Ox O2 Delivery O2 Flow Rate FiO2 08/19/17 11:44 97.8 08/19/17 11:44 71 08/19/17 11:44 97.8 71 12 88/55 (66) 99 95/48 (64) 08/19/17 06:34 97.5 78 16 135/75 (95) 98 (1) BPH (benign prostatic hyperplasia) (2) Diabetes mellitus (3) PAD (peripheral artery disease) (4) CAD (coronary artery disease) (5) Angina pectoris Johnna Boggs Aug 19, 2017 12:58
--- NOTE | 2017-08-19 12:59 | RADRPT ---
EXAM DATE/TIME: 08/19/2017 12:23 [facility] COMPARISON: CHEST SINGLE AP, August 19, 2017, 5:51. INDICATIONS : Post op heart surgery. MEDICAL HISTORY : Hypercholesterolemia. Renal calculi. Benign prostatic hyperplasia, (BPH) Glaucoma. Neuropathy. Migrai awais. Chest pain. HTN. Sleep apnea. GERD. Renal disease. Arthritis. Diabetes. Basal cell carcinoma. SURGICAL HISTORY : Tonsillectomy. Appendectomy. Inguinal hernia repair. Adenoidectomy. Anterior cervical fusion. Lumbar fusion. Left shoulder nerve repair. Bilateral TKR. Cardiac cath. ENCOUNTER: Subsequent ACUITY: 1 day PAIN SCORE: Non-responsive. LOCATION: Bilateral chest FINDINGS: A single AP semierect portable view of the chest was obtained and demonstrates that the patient is st atus post interval median sternotomy. There is a left-sided chest tube now noted in place with no pne umothorax. The heart size remains within normal limits without lytic changes in the aorta. There's be en placement of a right internal jugular central venous line with no pneumothorax. There are no confl uent infiltrates or effusions. The patient has been intubated with endotracheal tube tip at the level of thoracic inlet. CONCLUSION: 1. Status post median sternotomy with left-sided chest tube in place no pneumothorax. 2. Placement of right internal jugular central venous line. 3. Interval intubation. Michele Hou MD on August 19, 2017 at 12:56 Board Certified Radiologist. This report was verified electronically.
--- NOTE | 2017-08-19 13:02 | HHI.FF ---
Face to Face Verification Diagnosis: (1) S/P CABG x 3 (2) CAD (coronary artery disease) (3) Angina pectoris (4) Diabetes mellitus (5) PAD (peripheral artery disease) (6) BPH (benign prostatic hyperplasia) Physical Therapy Order: Evaluate and Treat Home Health Nursing Order: Signs/symptoms of disease process Diabetic education Medication education-adverse effect Wound care and dressing changes Nursing assessment with vital signs Instructions: Heart and Vascular Surgery patients *Special attention to sternal dressing Mandatory frequency Assess and evaluation, 4 days in a row The next week 3X week 2 times a week for 4 weeks 1 time a week for 5 weeks Schedule Heart and Vascular patients for full 60 day certification period Initial visit Review Open Heart Surgery Discharge Instructions (Sternal precautions, Activity, Elastic hose, Incision care, Driving, Incentive spirometry, Smoking, [place], Work and other) Need Betadine to paint incision Medication reconciliation Importance of follow up care/ check on appointments Make calendar record temperature daily When to call [facility] nurse, review instructions, phone list Incentive Spirometry, demonstration Visit 1- Begin discharge instruction for patient family and/ or caregiver using teach back method- Signs and symptoms of infection Disease characteristics Medicines and side effects Foods and nutrition/ appetite Infection control/ hand washing/ hygiene Visit 2- Continue teaching Discharge instructions- include additional information on smoking cessation , sternal dressing (sternal vac) Visit 3- Continue teaching- Cough and deep breathing, incision monitoring. Choose my plate Visit 4- Continue teaching- Discuss limitations Discuss how they are feeling Discuss progress toward goals Remaining visits- continue teaching and monitoring PREVENA Single Use Negative Wound Therapy System Caregiver Instruction Sheet 1. A Prevena dressing system was applied to the chest incision during surgery , to promote wound healing. It works via a suction device (negative pressure wound therapy) to remove low to moderate levels of exudate (drainage) and infectious materials. We recommend that the device stay in place for up to seven days, from day of surgery. 2. Day of Surgery____08/19/17 Day of Removal __08/26/17 3. The dressing should only be removed by a health director of home care hospice. Please arrange removal of device to coincide with Home Health visit and or with Nursing staff at Rehab 4. If skin reddening or irritation of skin occurs, or excessive drainage, please notify the Cardiovascular Surgeons office at [phone]. 5. Light showering is permissible; however the pump should be disconnected and placed in safe location, where it will not get wet. The dressing should not be exposed to direct spray or submerged in water. No bath tub / shower only. Ensure the end of the tubing attached to the dressing is facing down so that water does not enter the top of the tube. 6. To remove Prevena dressing: press purple button to turn off device / remove the suction. Then disconnect the tubing from the pump. The fixation strips should be stretched away from the skin and the dressing lifted at one corner and peeled back until it has been fully removed. 7. After removal, it is ok to shower daily using liquid dial soap and clean wash cloth, rinse and pat dry, and leave incision open to air dry. For any concerns regarding Prevena dressing, and or wounds, please contact Nadeen Atkinson, patient navigator at [phone] or notify the Cardiovascular Surgeons office at [phone]. Incentive spirometry Q1 hr x 10, while awake, also use acapella device hourly whole awake Sternal Breast Bone Precautions: NO pushing or pulling, ( pt must use sternal pillow to support chest with all activities and with coughing ( takes up to 3 months breast bone to heal ) Daily incision care: ok to shower daily, no tub bath. Wash all incisions with liquid dial soap, clean wash cloth to each site, rinse and pat dry. Observe for any signs of infection, such as drainage which is dark yellow, reed, green or foul smelling. Immediately report to the surgeon any drainage from the chest incision, or legs, and for any abnormal drainage from the chest tube sites. Notify surgeon if any temp >101.5 degrees F. When specialty dressing removed/ or if you do not have one, continue to shower daily as above, then rinse and pat incision dry and paint with betadine daily x 5 days. Allow steri strips to fall off if you have any. Avoid lotions, creams, salves, oils, etc. for the first month Please see attached forms for additional instructions regarding post Open Heart specialty wound vacuum dressings. LUCÍA or Prevena , Dressing to be removed by Nursing staff on ___08/26/17____ For Dr. Rogel patients , please obtain CBC, BMP, PA & Lat CXR in 2 weeks, results to Dr. Rogel ( prescription will be given) ( ) (Tele: [phone]) , F/U appointment: as per DC instructions: PCP in 2 weeks, CV surgeon 2 weeks, Contract Administration Coordinator 3-4 weeks For any questions regarding incisions/ dressing / meds / post op care or above Symptoms, Thursday 8am-5pm Heart & Vascular Surgery Office ( Dr. Arroyo & Dr. Rogel), After Hours / Nights (5pm -8am) Weekends and Holidays Please call [facility] ([facility]) Charge Nurse I have seen patient Lele Lyman on 08/19/17. My clinical findings support the need for the requested home health care services because: Deconditioned w/ increased weakness I certify that my clinical findings support that this patient is homebound because: Post-op weakness Johnna Boggs Aug 19, 2017 13:02
--- NOTE | 2017-08-19 13:18 | MB ---
cc: LISSET GRIMES M.D. DATE OF CONSULTATION: 08/19/2017 HISTORY OF PRESENT ILLNESS Lele is a very pleasant 82-year-old gentleman with a history of coronary artery disease. He had a cath done by myself a week ago and was found to have a minimal luminal area of approximately 4 mm squared by IVUS of the distal left main, moderate to severe LAD fibrocalcific disease. He underwent an elective CABG today by Dr. Rogel. The patient is currently intubated, off pressors, requiring nitro drip for blood pressure control, on minimal vent support, hemodynamically stable. REVIEW OF SYSTEMS Unobtainable as the patient is intubated. PAST MEDICAL HISTORY 1. Carotid stenosis. 2. Peripheral vascular disease. 3. Cardiomyopathy. 4. Diabetes mellitus. 5. Low back injury. SOCIAL HISTORY Denies tobacco or alcohol use. 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 MEDICATIONS Current medications include: 1. Aspirin 81 mg a day. 2. Pantoprazole 40 mg daily. 3. Amiodarone 200 mg q.12h. 4. Aricept 5 mg h.s. 5. Flomax 0.4 mg h.s. 6. Effexor 150 mg h.s. 7. Dexmedetomidine IV. 8. Clevidipine IV. PHYSICAL EXAMINATION VITAL SIGNS: Blood pressure 95/48, pulse 71, temperature 96.8, respiratory rate 12. GENERAL: He is intubated. NECK: Supple. No JVD. No bruit. CARDIOVASCULAR: S1, S2. No murmurs, rubs or gallops. ABDOMEN: Soft, nontender, nondistended. Positive bowel sounds. EXTREMITIES: No extremity edema. IMAGING Chest x-ray at 6:16 a.m. today: No acute disease. DIAGNOSIS 1. Coronary artery disease. 2. Cardiomyopathy. 3. Diabetes mellitus. 4. Peripheral vascular disease. 5. Dementia. DISCUSSION The patient is post-op day #0, hemodynamically stable, remains intubated on minimal vent support. Medical management and hemodynamic support per Dr. Rogel in the immediate post-op setting. The patient is on aspirin. Would recommend starting his statin as soon as possible. MD MIRIAM Rodriguez/SALVADOR /12:54 PM /1:01 PM
[2017-08-19] MEDS ORDERED: LACTATED RINGER'S 1000 ML INJ 500 ML IV PRN (14:00)
[2017-08-19] MEDS ORDERED: RESP: RACEPINEPHRINE 2.25% 0.5 ML NEB NEB PRN (14:30)
[2017-08-19] MEDS: ACETAMINOPHEN 1000 MG/100 ML 100 ML IV SCH ×2 (15:45→20:11)
[2017-08-19] MEDS: RESP: ALBUTEROL 2.5 MG/IPRATROPIUM 0.5 MG NEB (SCH) NEB ×2 (17:22→21:36)
[2017-08-19] MEDS: oxyCODONE/ACETAMINOPHEN 5 MG/325 MG TAB PO PRN (19:54)
[2017-08-19] MEDS: TAMSULOSIN HCL 0.4 MG CAP PO SCH (20:10)
[2017-08-19] MEDS: DONEPEZIL HCL 5 MG TAB PO SCH (20:10)
[2017-08-19] MEDS: VENLAFAXINE HCL XR 75 MG CAP PO SCH (20:10)
[2017-08-19] MEDS: AMIODARONE 200 MG TAB PO SCH (20:10)
[2017-08-19] MEDS: LATANOPROST 0.005% OPHT SOLN 2.5 ML BTL EACH EYE SCH (20:11)
[2017-08-19] MEDS: SODIUM CHLORIDE 0.9% FLUSH 10 ML FLUSH IV FLUSH SCH (20:11)
[2017-08-19] MEDS: DORZOLAMIDE/TIMOLOL OPTH SOLN 10 ML BTL EACH EYE SCH (21:00)
[2017-08-20] VITALS (12 sets, daily range): BP systolic 97–153; BP diastolic 51–82; PULSE 73–93; RESP 14–16; TEMP 97.7–98.4; O2SAT 97–99
[2017-08-20] MEDS: oxyCODONE/ACETAMINOPHEN 5 MG/325 MG TAB PO PRN ×3 (00:07→06:18)
[2017-08-20] MEDS: ONDANSETRON HCL 4 MG/2 ML VIAL IV PUSH PRN ×2 (01:10→08:26)
[2017-08-20] MEDS: ACETAMINOPHEN 1000 MG/100 ML 100 ML IV SCH ×2 (03:00→09:27)
[2017-08-20] MEDS: RESP: ALBUTEROL 2.5 MG/IPRATROPIUM 0.5 MG NEB (SCH) NEB ×4 (03:38→20:45)
[2017-08-20 04:47] LABS: HEMATOCRIT 38.5 % (39.0-51.0); MEAN CELL VOLUME 90.7 FL (80.0-100.0); MEAN CORPUSCULAR HEMOGLOBIN 31.6 PG (27.0-34.0); MEAN CORPUSCULAR HGB CONC 34.8 % (32.0-36.0); PLATELET COUNT 170 TH/MM3 (150-450); RED BLOOD COUNT 4.25 MIL/MM3 (4.50-5.90); RED CELL DISTRIBUTION WIDTH 14.3 % (11.6-17.2); REVIEW FLAG FINAL; WHITE BLOOD COUNT 17.9 TH/MM3 (4.0-11.0)
--- NOTE | 2017-08-20 04:50 | RADRPT ---
EXAM DATE/TIME: 08/20/2017 04:11 [facility] COMPARISON: CHEST SINGLE AP, August 19, 2017, 12:23. INDICATIONS : Shortness of breath, possible pneumothorax. MEDICAL HISTORY : Hypercholesterolemia. Renal calculi. Hypertension. Renal disease. Arthritis. Diabetes. Basal cell carcinoma GERD SURGICAL HISTORY : Tonsillectomy. Appendectomy. Inguinal hernia repair. Adenoidectomy. ENCOUNTER: Subsequent ACUITY: 2 days PAIN SCORE: Non-responsive. LOCATION: Bilateral chest FINDINGS: A single view of the chest demonstrates left-sided chest tube with questionable small lateral pneumot horax. Left basilar density. Right jugular central line. Status post CABG with mediastinal chest tube . The cardiomediastinal contours are unremarkable. Osseous structures are intact. CONCLUSION: 1. Left-sided chest tube with questionable small lateral pneumothorax. Enrique Echeverria MD on August 20, 2017 at 4:46 Board Certified Radiologist. This report was verified electronically.
[2017-08-20 05:12] LABS: BICARBONATE 25.5 MEQ/L (21.0-32.0); POTASSIUM 3.9 MEQ/L (3.5-5.1)
[2017-08-20] MEDS ORDERED: PANTOPRAZOLE SOD 40 MG DELAYED RELEASE TAB PO SCH (06:00)
[2017-08-20] MEDS: SODIUM CHLORIDE 0.9% FLUSH 10 ML FLUSH IV FLUSH SCH ×2 (08:26→22:12)
[2017-08-20] MEDS ORDERED: GLUCAGON 1 MG/ML VIAL OTHER PRN (08:45)
[2017-08-20] MEDS ORDERED: BISACODYL 10 MG SUPP RECTAL PRN (08:45)
[2017-08-20] MEDS ORDERED: DEXTROSE 50% IN WATER 50 ML VIAL(D50) IV PUSH PRN (08:45)
[2017-08-20] MEDS ORDERED: SOD PHOSPHATE/SOD BIPHOSPHATE (ADULT) ENEMA 133ML RECTAL PRN (08:45)
[2017-08-20] MEDS: DORZOLAMIDE/TIMOLOL OPTH SOLN 10 ML BTL EACH EYE SCH ×2 (09:26→21:00)
[2017-08-20] MEDS: AMIODARONE 200 MG TAB PO SCH ×2 (09:26→22:12)
[2017-08-20] MEDS: ASPIRIN 81 MG CHEW TAB PO SCH (09:27)
[2017-08-20] MEDS: ATORVASTATIN 80 MG TAB PO SCH (09:27)
[2017-08-20] MEDS: CARVEDILOL 3.125 MG TAB PO SCH ×2 (10:00→22:14)
[2017-08-20] MEDS ORDERED: LORazepam 2 MG/ML VIAL ONE ×2 (10:06→21:21)
[2017-08-20] MEDS ORDERED: MIDAZOLAM HCL 5 MG/ML VIAL (1 ML) ONE (10:08)
[2017-08-20] MEDS ORDERED: FUROSEMIDE 40 MG/4 ML VIAL IV PUSH ONE (10:15)
[2017-08-20] MEDS ORDERED: POTASSIUM CHLORIDE 20 MEQ CONTROLLED RELEASE TAB PO ONE (10:15)
[2017-08-20] MEDS: MULTIVITAMINS/MINERALS THERAPEUTIC TAB PO SCH (10:15)
[2017-08-20] MEDS ORDERED: INSULIN DETEMIR 100 UNITS/ML VIAL SQ ONE (10:15)
[2017-08-20] MEDS ORDERED: LISINOPRIL 5 MG TAB PO SCH (10:15)
[2017-08-20 10:26] LABS: I-STAT POTASSIUM 4.2 MMOL/L (3.5-4.9)
[2017-08-20] MEDS ORDERED: ROCURONIUM INJ 50 MG/5 ML VIAL ONE (10:26)
[2017-08-20 10:28] LABS: AUTOMATED NEUTROPHIL # 15.6 TH/MM3 (1.8-7.7); BASOPHIL % 0.2 % (0.0-2.0); HEMATOCRIT 37.7 % (39.0-51.0); HEMO FLAGS DIFF FINAL; LYMPH % 7.1 % (9.0-44.0); LYMPHOCYTE # 1.3 TH/MM3 (1.0-4.8); MEAN CELL VOLUME 91.9 FL (80.0-100.0); MEAN CORPUSCULAR HEMOGLOBIN 31.4 PG (27.0-34.0); MEAN CORPUSCULAR HGB CONC 34.1 % (32.0-36.0); MONO % 9.2 % (0.0-8.0); NEUT % 83.5 % (16.0-70.0); PLATELET COUNT 162 TH/MM3 (150-450); RED CELL DISTRIBUTION WIDTH 14.3 % (11.6-17.2); WHITE BLOOD COUNT 18.7 TH/MM3 (4.0-11.0)
[2017-08-20] MEDS: MAGNESIUM HYDROXIDE SUSP 30 ML CUP PO SCH (10:30)
[2017-08-20 10:39] LABS: APTT (PATIENT) 27.5 SEC (24.3-30.1); PROTHROMBIN TIME - PATIENT 11.3 SEC (9.8-11.6)
--- NOTE | 2017-08-20 10:52 | RADRPT ---
EXAM DATE/TIME: 08/20/2017 10:35 [facility] COMPARISON: No previous studies available for comparison. INDICATIONS : Stroke alert; unresponsive. RADIATION DOSE: 35.23 CTDIvol (mGy) This report was called by Dr. darden to Dr. Das [id number] MEDICAL HISTORY : Cardiovascular disease. Hypertension. Diabetes mellitus type 2. SURGICAL HISTORY : Tonsillectomy. Fusion, cervical.Coronary artery stent. ENCOUNTER: Initial ACUITY: 1 day PAIN SCALE: Non-responsive LOCATION: cranial TECHNIQUE: Multiple contiguous axial images were obtained of the head. Using automated exposure control and adj ustment of the mA and/or kV according to patient size, radiation dose was kept as low as reasonably a chievable to obtain optimal diagnostic quality images. DICOM format image data is available electro nically for review and comparison. FINDINGS: CEREBRUM: Moderate diffuse cerebral volume loss. The ventricles are normal for degree of atrophy. No evidence of midline shift, mass lesion, hemorrhage or acute infarction. No extra-axial fluid collections are seen. POSTERIOR FOSSA: The cerebellum and brainstem are intact. The 4th ventricle is midline. The cerebellopontine angle i s unremarkable. EXTRACRANIAL: The visualized portion of the orbits is intact. Mucoperiosteal thickening involving the left maxillar y sinus. SKULL: The calvaria is intact. No evidence of skull fracture. CONCLUSION: 1. Senescent changes. 2. No acute intracranial abnormality. 3. Left maxillar sinus disease. Dragan Oreilly MD on August 20, 2017 at 10:47 Board Certified Radiologist. This report was verified electronically.
[2017-08-20] MEDS ORDERED: IOHEXOL 350 MG/ML 10 ML VIAL (for RAD DIAG) IVCONTRAST ONE (10:57)
--- NOTE | 2017-08-20 11:35 | RADRPT ---
EXAM DATE/TIME: 08/20/2017 10:49 [facility] COMPARISON: No previous studies available for comparison. INDICATIONS : Stroke alert; unresponsive. IV CONTRAST: 100 cc Omnipaque 350 (iohexol) IV ; Cumulative dose for multiple exams. RADIATION DOSE: 28.00 CTDIvol (mGy) ; Combined studies MEDICAL HISTORY : Cardiovascular disease. Hypertension. Diabetes mellitus type 2. SURGICAL HISTORY : Fusion, cervical. Tonsillectomy.Coronary artery stent. ENCOUNTER: Initial ACUITY: 1 day PAIN SCALE: Non-responsive LOCATION: cranial TECHNIQUE: Volumetric scanning was performed using a multi-row detector CT scanner. The data was post processed with a variety of visualization algorithms including full volume maximum intensity projection, multi -planar sliding thin slab reformation, curved planar reformation, and surface rendering techniques. Using automated exposure control and adjustment of the mA and/or kV according to patient size, radiat ion dose was kept as low as reasonably achievable to obtain optimal diagnostic quality images. DICO M format image data is available electronically for review and comparison. FINDINGS: Anterior circulation: Distal intracranial internal carotid arteries are patent with flow extending to the middle and anteri or cerebral arteries. There is no evidence for aneurysm, vessel truncation or stenosis, and no eviden ce for vascular malformation. Posterior circulation: Symmetric distal vertebral arteries with flow extending to basilar artery. Patent right P-comm. There is no evidence for aneurysm, vessel truncation or stenosis, and no evidence for vascular malformatio n. CONCLUSION: 1. Negative CTA examination of the head. Specifically, no evidence for large vessel occlusion. Dragan Oreilly MD on August 20, 2017 at 11:26 Board Certified Radiologist. This report was verified electronically.
[2017-08-20] MEDS ORDERED: fentaNYL DRIP 250 ML IV PRN (11:45)
[2017-08-20] MEDS ORDERED: PROPOFOL 1000 MG/100 ML INJ 100 ML IV PRN (11:45)
--- NOTE | 2017-08-20 12:00 | PD.CONS ---
[facility] Service Critical Care Medicine Consult Requested By Dr. Rogel Reason for Consult Respiratory failure, possible CVA Primary Care Physician Non-Staff History of Present Illness This is an 82-year-old male. Date of admission 08/19/2017. Date of consultation 08/20/2017. Past medical history includes hypertension, dyslipidemia, peripheral vascular disease, dementia, atrial fibrillation, depression. BPH, gastroesophageal reflux disease. One week ago, patient had an elective catheterization with Dr. Aviles revealed a minimal luminal area of approximately 4 mm squared by IVUS of the distal left main, moderate to severe LAD fibrocalcific disease. Yesterday the patient underwent a CABG 3 CAIN to LAD, SVG to OM1 and PDA with EVH per Dr. Rogel. One pleural/ mediastinal chest tube placed. Sanguinous output noted. Today, patient was ambulatory in the hallway with acutely became unresponsive with a leftward gaze at approximately 955. This patient was placed in a chair and moved directly to his room in 446. Patient was emergently intubated for airway protection using Midazolan and rocuronium. Stroke alert was called. Stat CT brain/CTA head and neck revealed no acute timings. Not a candidate for TPA due to recent CABG. He currently undergoing. Patient is currently hemodynamically stable Review of Systems ROS Limitations: Intubated Past Family Social History Allergies: Coded Allergies: No Known Allergies (Verified , 08/19/17) Past Medical History Hypertension Dyslipidemia BPH Gastroesophageal reflux disease Diabetes mellitus Chronic low back pain Glaucoma Dementia disorder Depression/anxiety Migraine headache Nephrolithiasis JHON does not use CPAP Past Surgical History CABG 3 Left shoulder Left inguinal hernia Appendectomy Anterior C-spine fusion L3/4 laminectomy Bilateral total knee replacements T&A Reported Medications Latanoprost 0.005 one drop each eye at night Dorzolamide/timolol Calcium carbonate vitamin D Gabapentin 100 mg a night Lisinopril 5 mg daily Carvedilol 3.125 mg twice a day Fish oil/cholecalciferol 1000 mg/thousand units twice a day Rosuvastatin 40 mg daily Pentoxifylline 400 mg daily Donepezil 5 mill grams daily Aspirin 81 mg daily Amiodarone 200 mg twice a day Venlafaxine 150 mg daily Tamsulosin 0.4 mg daily Omeprazole 20 mg daily Active Ordered Medications Reviewed in EMR Family History Father 49 RI. Mother 62 RI. Sister 61/70 RI. Brother 49 CVA. Social History 40 pack years tobacco. Quit 21 years ago. Rare monthly alcohol use. Denies illicit drug use. Physical Exam Vital Signs Vital Signs Date Time Temp Pulse Resp B/P (MAP) Pulse Ox O2 Delivery O2 Flow Rate FiO2 08/20/17 11:45 99 40 08/20/17 09:21 99 Nasal Cannula 2.00 08/20/17 07:18 16 08/20/17 07:18 16 08/20/17 07:00 97.8 86 16 148/82 (104) 98 153/51 (85) 08/20/17 07:00 98 Nasal Cannula 2.00 08/20/17 07:00 86 08/20/17 04:00 76 132/56 08/20/17 03:00 97.9 73 16 129/74 (92) 97 119/51 (73) 08/20/17 03:00 76 08/20/17 03:00 73 119/51 08/20/17 03:00 97 Nasal Cannula 2.00 08/20/17 01:09 67 163/68 08/19/17 23:00 98.8 67 12 143/89 (107) 94 138/62 (87) 08/19/17 23:00 94 Nasal Cannula 2.00 08/19/17 23:00 66 08/19/17 21:36 99 Nasal Cannula 2.00 08/19/17 19:00 66 08/19/17 19:00 99 Nasal Cannula 2.00 08/19/17 19:00 97.8 66 16 141/81 (101) 94 158/67 (97) 08/19/17 17:15 99 Nasal Cannula 3.00 08/19/17 17:08 99 Nasal Cannula 3 08/19/17 16:15 14 08/19/17 16:00 40 08/19/17 15:00 98.5 88 14 121/75 (90) 99 148/76 (100) 08/19/17 15:00 88 08/19/17 14:45 99 40 Physical Exam GENERAL: 82-year-old male, resting in bed will strictly intubated SKIN: Warm and dry. HEAD: Atraumatic. Normocephalic. EYES: Pupils equal and round about 1-2 mm bilaterally and sluggish. No scleral icterus. No injection or drainage. ENT: No nasal bleeding or discharge. Mucous membranes pink and moist. NECK: Trachea midline. No JVD. Right IJ Cordis with clean dry and intact CARDIOVASCULAR: Regular rate and rhythm. S1, S2. No S4. RESPIRATORY: No accessory muscle use. Clear to auscultation. Breath sounds equal bilaterally. Mediastinal/left chest tube intact. GASTROINTESTINAL: Abdomen soft, non-tender, nondistended. Hepatic and splenic margins not palpable. MUSCULOSKELETAL: Extremities without significant peripheral edema. NEUROLOGICAL: Positive gag. Positive corneal reflex. Pupils as above. Currently not withdrawing to pain. Laboratory Laboratory Tests Test 08/20/17 04:20 08/20/17 10:13 White Blood Count 17.9 18.7 Red Blood Count 4.25 4.10 Hemoglobin 13.4 12.9 Hematocrit 38.5 37.7 Mean Corpuscular Volume 90.7 91.9 Mean Corpuscular Hemoglobin 31.6 31.4 Mean Corpuscular Hemoglobin Concent 34.8 34.1 Red Cell Distribution Width 14.3 14.3 Platelet Count 170 162 Mean Platelet Volume 8.5 8.3 Blood Urea Nitrogen 15 Creatinine 0.60 Random Glucose 116 Calcium Level 8.4 Magnesium Level 2.0 Sodium Level 139 Potassium Level 3.9 Chloride Level 106 Carbon Dioxide Level 25.5 Anion Gap 8 Estimat Glomerular Filtration Rate 129 Bedside Hemoglobin 12.2 Bedside Hematocrit 36.0 Neutrophils (%) (Auto) 83.5 Lymphocytes (%) (Auto) 7.1 Monocytes (%) (Auto) 9.2 Eosinophils (%) (Auto) 0.0 Basophils (%) (Auto) 0.2 Neutrophils # (Auto) 15.6 Lymphocytes # (Auto) 1.3 Monocytes # (Auto) 1.7 Eosinophils # (Auto) 0.0 Basophils # (Auto) 0.0 CBC Comment DIFF FINAL Differential Comment Prothrombin Time 11.3 Prothromb Time International Ratio 1.0 Activated Partial Thromboplast Time 27.5 Fibrinogen 413 Bedside Sodium 138 Bedside Potassium 4.2 Bedside Chloride 101 Bedside Blood Urea Nitrogen 14 Bedside Creatinine 0.8 Bedside Glucose 116 Total Creatine Kinase 157 Troponin I 0.84 Result Diagram: 08/20/17 1013 08/20/17 0420 Imaging Last Impressions Chest X-Ray 08/20/17 0500 Signed Impressions: Service Date/Time: July 04:11 - CONCLUSION: 1. Left-sided chest tube with questionable small lateral pneumothorax. Enrique Echeverria MD Head CTA 08/20/17 0000 Signed Impressions: Service Date/Time: July 10:49 - CONCLUSION: 1. Negative CTA examination of the head. Specifically, no evidence for large vessel occlusion. Dragan Oreilly MD Head CT 08/20/17 0000 Signed Impressions: Service Date/Time: July 10:35 - CONCLUSION: 1. Senescent changes. 2. No acute intracranial abnormality. 3. Left maxillar sinus disease. Dragan Oreilly MD Assessment and Plan Assessment and Plan Neuro/Psych: Acute AMS rule out CVA/TIA Migraine headache Glaucoma History of vertigo Dementia disorder NOS History anterior spinal fusion History L3/4 level laminectomy Peripheral neuropathy Propofol/fentanyl drips for sedation/analgesia while intubated Goal of RA SS -2 Daily sedation vacation Stat CT brain revealed no acute intracranial findings. Maxillary sinus disease. Stat CT angiogram brain revealed no large vessel disease. Carotid results radial towards left carotid. Moderate disease but not flow-limiting.. Specifically no basilar artery disease. Currently on donepezil 5 mg daily for dementia. Continue Continued dorzol/timolol 2/0.5 centimeters one drop twice a day and latanoprost 0.005% 1 drop each eye at night for glaucoma Continue gabapentin [address] Lawrence neurology consulted EEG ordered. Results pending CV: Postop day 1 CABG 3 - CAIN to LAD, SVG to OM1/PDA with EVH by Dr. Rollins Coronary artery disease Hypertension Dyslipidemia Claudication/peripheral vascular disease Continue amiodarone 200 mg by mouth twice a day Continue carvedilol 3.125 mg twice a day lisinopril 5 mill grams daily for hypertension Currently on atorvastatin 80 mg by mouth daily. On rosuvastatin 40 mg daily at home. For dyslipidemia Continue aspirin 81 mg daily Currently holding pentoxifylline 400 mg daily for claudication Resp: Acute respiratory failure History of JHON does not use CPAP ACV 14/500/5/40 Ventilator bundle Albuterol/ipratropium aerosols every 6 hours while awake Spontaneous breathing trials daily Follow-up chest x-ray Mediastinal/left chest tube to -20 cm H2O. GI: Gastroesophageal reflux disease Currently nothing by mouth OGT to LIWS Pantoprazole for GI prophylaxis Docusate sodium for bowel regimen : BPH History of nephrolithiasis Continue tamsulosin 0.4 mg by mouth daily. Maintain Chris catheter Endo: Diabetes mellitus Currently holding insulin glargine 35 units at night sitagliptin/metformin 20/ 500 one tablet being held as well Sliding-scale insulin per CT surgery protocol Renal: Creatinine currently within normal limits Monitor urine output Accurate I's and O's Heme: Leukocytosis Normocytic anemia Monitor CBC daily. Follow trends. ID: Postoperative antibiotics with cefazolin 1 g IV every 8 hours [address] surgery Monitor for infection FEN: Replace electrolytes as clinically indicated MSK: Osteoarthritis PT evaluate and treat Access - Right IJ Cortis/dual-lumen day #2 Prophylaxis - GI - pantoprazole - DVT - BHASKAR hose left lower extremity/pharmacological prophylaxis when okay with CT surgery Critical Care: The total critical care time was 35 minutes. Time to perform other separately billable procedures was not included in the critical care time. Code Status Full code Discussed Condition With Patient's son. Dr. Lawrence/neurology. Care plan discussed and all questions answered. Asaf Cristobal MD Aug 20, 2017 12:00
--- NOTE | 2017-08-20 12:16 | PD.PROCEDR ---
Procedure Note Procedure DATE: 08/20/2017 PROCEDURE: Orotracheal intubation INDICATION: Respiratory failure DETAILS OF PROCEDURE The patient was placed in optimal position and preoxygenated with 100% FiO2 via bag valve mask. At the start oxygen saturation was 100%. The patient was administered 5 mg midazolamIV and 100 mg rocuronium IV. I entered the oropharynx with a size4 GVL glidescope blade and obtained a grade 3 view of the airway. On single attempt a size 8.0 cuffed endotracheal tube was passed through the vocal cords. Correct tube location was confirmed with end tidal CO2 detector and by auscultating over bilateral lung zamora. The endotracheal tube was secured with adhesive tape at a depth of 24 cm at the lips. The patient was connected to the ventilator. The patient tolerated the procedure well without any apparent complications. Oxygen saturations were maintained greater than 95% all times. STAT chest x-ray adequate positioning of ET tube. Asaf Cristobal MD Aug 20, 2017 12:16
--- NOTE | 2017-08-20 12:21 | RADRPT ---
EXAM DATE/TIME: 08/20/2017 10:49 [facility] COMPARISON: No previous studies available for comparison. INDICATIONS : Stroke alert; unresponsive. IV CONTRAST: 100 cc Omnipaque 350 (iohexol) IV ; Cumulative dose for multiple exams. RADIATION DOSE: 28.00 CTDIvol (mGy) ; Combined studies MEDICAL HISTORY : Cardiovascular disease. Hypertension. Diabetes mellitus type 2. SURGICAL HISTORY : Fusion, cervical. Coronary artery stent.Tonsillectomy. ENCOUNTER: Initial ACUITY: 1 day PAIN SCALE: Non-responsive LOCATION: neck Elevated flow velocities and ICA/CCA ratios have been found to correlate with increased degrees of vessel stenosis, calculated as percentage of diameter relative to a normal segment of distal ICA/CCA. TECHNIQUE: Volumetric scanning was performed using a multirow detector CT scanner. The data was post processed with a variety of visualization algorithms including full-volume maximum intensity projection, multip lanar sliding thin-slab reformation, curved-planar reformation, and surface-rendering techniques. Us ing automated exposure control and adjustment of the mA and/or kV according to patient size, radiatio n dose was kept as low as reasonably achievable to obtain optimal diagnostic quality images. DICOM f ormat image data is available electronically for review and comparison. FINDINGS: AORTIC ARCH: There is a three-vessel origin of the great vessels from the aorta. No evidence of ostial narrowing. There is atherosclerotic plaquing on the thoracic aortic arch. RIGHT CAROTID: The common carotid artery is intact. There is calcified plaquing at the bifurcation. No focal high gr lory stenosis is demonstrated. There is a calcified plaque along the midportion of the right internal carotid artery. The external carotid is patent. LEFT CAROTID: The common carotid artery is intact. There are calcified plaques at the origin of the left internal c arotid artery. The left internal carotid artery is tortuous. No focal or high-grade stenosis is seen. The external carotid is patent. VERTEBRALS: The vertebral arteries have a symmetric diameter. No stenotic lesions are seen. CONCLUSION: 1. There is moderate calcified atherosclerotic plaquing at both carotid bifurcations. 2. No significant focal or high-grade stenosis is demonstrated. 3. There is tortuosity of the left internal carotid artery. Kedar Smith MD on August 20, 2017 at 12:09 Board Certified Radiologist. This report was verified electronically.
--- NOTE | 2017-08-20 12:45 | RADRPT ---
EXAM DATE/TIME: 08/20/2017 11:48 [facility] COMPARISON: CHEST SINGLE AP, August 20, 2017, 4:11. INDICATIONS : Evaluate intubation MEDICAL HISTORY : Cardiovascular disease. Hypertension. Diabetes mellitus type 2. SURGICAL HISTORY : Fusion, cervical. Tonsillectomy.Coronary artery stent ENCOUNTER: Subsequent ACUITY: 1 day PAIN SCORE: Non-responsive. LOCATION: chest FINDINGS: Status post placement of an endotracheal tube which appears to be in good position. No definite pneum othorax. The left-sided chest tube in place. The heart size is stable. The right lung is clear. There is a minimal atelectasis in the left lung base. CONCLUSION: The ET tube appears to be in good position. No evidence of pneumothorax. Kedar Smith MD on August 20, 2017 at 12:42 Board Certified Radiologist. This report was verified electronically.
--- NOTE | 2017-08-20 12:47 | MG ---
cc: RANJIT FRIAS M.D. Lab No: [id number] Date: 08/20/2017 Age: 82 Sex: M Race: __ DATE OF [address] Atkinson TECHNIQUE The patient is intubated, unresponsive. Hyperventilation not done. Photic stimulation done. Withdrew both feet. Bilateral upper extremities no movement. Twitching in the legs to stimuli on the hands. CT pending. INDICATIONS This is an 82-year-old man status post CABG walking with a POLICE RESERVES COMMANDER and PT and all of a sudden became completely flaccid, vomited, left gaze, went unresponsive, intubated. MEDICATIONS 1. Neurontin 2. Aricept 3. Effexor 4. Percocet 5. Zofran DESCRIPTION OF RECORD There is diffuse background attenuation predominately of 2 Hz to 2-1/2 Hz. Some lead replacement performed, but overall attenuated background. He has some mouth movements, but there is no correlation with any epileptic activity. Photic stimulation without any driving response. Mouth twitching noted by bench repair technician again. There is no correlation with any epileptiform discharges. IMPRESSION Abnormal EEG due to moderately severe background slowing consistent with encephalopathic process. There is no evidence of any epileptiform features in this recording. There is no correlation with the mouth movements. Clinical correlation. MD FRANK Sloan/SUNDYA /12:33 PM /12:40 PM
[2017-08-20] MEDS: INSULIN ASPART SUPPLEMENTAL SCALE SQ SCH ×3 (14:00→22:00)
--- NOTE | 2017-08-20 15:37 | MB ---
cc: CHAVEZ SHAFER MD DATE OF CONSULTATION: 08/20/2017 REASON FOR CONSULTATION Stroke alert. HISTORY OF PRESENT ILLNESS The patient is unresponsive and thus, medical history is obtained from the medical staff and medical records. Mr. Lyman is a 82-year-old male who has past medical history of hypertension, hyperlipidemia, peripheral vascular disease, dementia, atrial fibrillation, depression, BPH, GERD. The patient is status cardiac catheterization last week and, status post one postoperative day of CABG with pleural chest tube placed.The patient was noted to be walking in the hallway and then acutely became unresponsive with a gaze deviation to the left. The patient was intubated and a stroke alert was called. His NIH stroke scale was greater than 24, unresponsive. Head CT scan without contrast was unremarkable for any acute pathology. Neck and head CTA were unremarkable as well. White blood cells elevated at 18.7, platelets 162, INR is 1 with mild elevation of the troponin. The patient was evaluated in the CT scan unit. The patient is deemed not a candidate for IV TPA because of the critical clinical condition and status post 1 day of cardiac procedure. REVIEW OF SYSTEMS A 12-point review of systems is negative except for what is stated in HPI, as per review of medical records. PAST MEDICAL HISTORY Review of medical records: 1. Hypertension. 2. Dyslipidemia. 3. BPH. 4. GERD. 5. Diabetes. 6. Chronic back pain. 7. Glaucoma. 8. Dementia. 9. Depression. 10. Migraine. 11. Nephrolithiasis. 12. Obstructive sleep apnea. ALLERGIES No known allergies. PAST SURGICAL HISTORY Review of medical records: 1. CABG x 3. 2. Left shoulder surgery. 3. Left inguinal hernia. 4. Appendectomy. 5. Anterior C-spine fusion. 6. L3-L4 laminectomy. 7. Bilateral total knee replacement. MEDICATIONS 1. Omeprazole. 2. Tamsulosin. 3. Venlafaxine. 4. Amiodarone. 5. Aspirin. 6. Donepezil. 7. Pentoxifylline. 8. Atorvastatin. 9. Carvedilol. 10. Lisinopril. 11. Gabapentin. 12. Calcium. 13. Dorzolamide. 14. Latanoprost. FAMILY HISTORY Per review of medical records. Father at 49 because of MS. Mother was diseased at 63 because of MS. SOCIAL HISTORY Per review of medical records 40 packs per year tobacco, quit 21 years ago. Rarely use of alcohol. No illicit drug history. PHYSICAL EXAMINATION GENERAL: The patient is intubated, evaluated in the CT scan suite unresponsive. Mild conjugate gaze to the left. HEENT: Atraumatic, normocephalic. Pupils sluggishly reacting to light. Trachea in the midline. CARDIOVASCULAR: Regular rate and rhythm. RESPIRATORY: Clear to auscultation. No wheezes. GASTROINTESTINAL: Soft abdomen, not distended. MUSCULOSKELETAL: No peripheral edema or cyanosis. NEUROLOGIC: Sedated and intubated, unresponsive. LABORATORY DATA White blood cells 18.7, hemoglobin 12.9, platelets 162, BUN 15, creatinine 0.6, calcium 8.4. IMAGING STUDIES - Head CT scan shows senescent changes. No acute intracranial abnormality. - Head CTA is negative CTA examination. - Neck CTA negative for an acute intracranial abnormality. DIAGNOSTIC IMPRESSION AND PLAN 1. Stroke alert with acute encephalopathy. 2. Dementia. 3. The patient presented with a very high NIH stroke scale, unresponsive, status post CABG 1 day duration. Thus, he is not deemed a candidate for IV TPA and there is no indication for interventional radiologic intervention given the negative CTA of the head and neck, the critical condition and the recent cardiac procedure. PLAN 1. Neuro checks q. one hourly. 2. EEG. 3. Continue supportive medical therapy. 4. Telemetry. 5. DVT prophylaxis. 6. GI prophylaxis. Thank you for the opportunity to participate in the care of your patient. I discussed the case with the registered nurse, with the air export coordinator and interventional radiologist and a possible etiology would have been be a basilar artery thrombosis, however, the angiogram revealed no evidence of this abnormality. MD LATANYA Damico/YEISON /1:40 PM /2:40 PM HIEN
--- NOTE | 2017-08-20 17:41 | EKG ---
Date Performed: 08/20/2017 Time Performed: 05:47:00 PTAGE: 82 years EKG: Sinus rhythm Short MO interval Generalized low QRS voltages Since the prior tracing the inferolateral ST elevatio n is new. This is nonspecific . Clinical correlation is recommended to exclude myocardial injury woul d be appropriate inlight of the serial change. Borderline ECG PREVIOUS TRACING : 08/11/2017 05.50 DOCTOR: Mary Lara Interpretating Date/Time 08/20/2017 17:40:43
--- NOTE | 2017-08-20 17:46 | PD.CAR.PN ---
CVT Progress Note Subjective/Hospital Course: 82/ male hx of recent chest pain , unstable angina, + stress / underwent heart cath multi vessel disease EF 50% admitted electively for surgery PMH: CAD, DM, PAD, vertigo , BPH, glaucoma surgery :08/19 CABG x 3 CAIN to LAD - very poor SVG to OM1 - fair SVG to PDA - fair EVH 08/20 pt did well this am alert and oriented , extubated after surgery , did c/o of nausea and lightheadedness this am after getting up from chair to bed was called later in am 9:55 am 11/27 , patient was ambulatory in the hallway with acutely became unresponsive with a leftward gaze at approximately 955. This patient was placed in a chair and moved directly to his room in 446. Patient was emergently intubated for airway protection using Midazolan and rocuronium. Stroke alert was called. Stat CT brain/CTA head and neck revealed no acute timings. Not a candidate for TPA due to recent CABG. He currently undergoing. Patient is currently hemodynamically stable as the course of day pt more awake, opens eyes and attempts to track, not on any sedation, spoke in depth with son remains intubated, eval for more alertness in am , appreciate Neuro and [facility] chest tubes remain in place Objective: GENERAL: orally intubated on vent SKIN: Warm and dry. prevena dressing to chest HEAD: Normocephalic. EYES: No scleral icterus. No injection or drainage. NECK: Supple, trachea midline. No JVD or lymphadenopathy. CARDIOVASCULAR: Regular rate and rhythm without murmurs, gallops, or rubs. RESPIRATORY: Breath sounds equal bilaterally. No accessory muscle use. on vent , chest tubes in place, drained 195cc/ 12 hrs + 5 kg GASTROINTESTINAL: Abdomen soft, non-tender, nondistended. MUSCULOSKELETAL: No cyanosis, or edema. BACK: Nontender without obvious deformity. No CVA tenderness. Neuro : opens eyes, attempts to track, pupils now midline Vital Signs Date Time Temp Pulse Resp B/P (MAP) Pulse Ox O2 Delivery O2 Flow Rate FiO2 08/20/17 15:00 99 Mechanical Ventilator 40 08/20/17 15:00 75 08/20/17 15:00 98.4 75 16 124/78 (93) 99 08/20/17 13:53 99 40 08/20/17 11:45 99 40 08/20/17 11:00 97.7 76 16 97/80 (86) 99 Arterial Line 08/20/17 11:00 99 Mechanical Ventilator 100 08/20/17 11:00 76 08/20/17 10:25 98 100 08/20/17 09:21 99 Nasal Cannula 2.00 08/20/17 07:18 16 08/20/17 07:18 16 08/20/17 07:00 97.8 86 16 148/82 (104) 98 153/51 (85) 08/20/17 07:00 98 Nasal Cannula 2.00 08/20/17 07:00 86 08/20/17 04:00 76 132/56 08/20/17 03:00 97.9 73 16 129/74 (92) 97 119/51 (73) 08/20/17 03:00 76 08/20/17 03:00 73 119/51 08/20/17 03:00 97 Nasal Cannula 2.00 08/20/17 01:09 67 163/68 08/19/17 23:00 98.8 67 12 143/89 (107) 94 138/62 (87) 08/19/17 23:00 94 Nasal Cannula 2.00 08/19/17 23:00 66 08/19/17 21:36 99 Nasal Cannula 2.00 08/19/17 19:00 66 08/19/17 19:00 99 Nasal Cannula 2.00 08/19/17 19:00 97.8 66 16 141/81 (101) 94 158/67 (97) Labs: Laboratory Tests Test 08/20/17 10:13 White Blood Count 18.7 TH/MM3 (4.0-11.0) Red Blood Count 4.10 MIL/MM3 (4.50-5.90) Hemoglobin 12.9 GM/DL (13.0-17.0) Bedside Hemoglobin 12.2 G/DL (12.0-17.0) Hematocrit 37.7 % (39.0-51.0) Bedside Hematocrit 36.0 % (38.0-51.0) Mean Corpuscular Volume 91.9 FL (80.0-100.0) Mean Corpuscular Hemoglobin 31.4 PG (27.0-34.0) Mean Corpuscular Hemoglobin Concent 34.1 % (32.0-36.0) Red Cell Distribution Width 14.3 % (11.6-17.2) Platelet Count 162 TH/MM3 (150-450) Mean Platelet Volume 8.3 FL (7.0-11.0) Neutrophils (%) (Auto) 83.5 % (16.0-70.0) Lymphocytes (%) (Auto) 7.1 % (9.0-44.0) Monocytes (%) (Auto) 9.2 % (0.0-8.0) Eosinophils (%) (Auto) 0.0 % (0.0-4.0) Basophils (%) (Auto) 0.2 % (0.0-2.0) Neutrophils # (Auto) 15.6 TH/MM3 (1.8-7.7) Lymphocytes # (Auto) 1.3 TH/MM3 (1.0-4.8) Monocytes # (Auto) 1.7 TH/MM3 (0-0.9) Eosinophils # (Auto) 0.0 TH/MM3 (0-0.4) Basophils # (Auto) 0.0 TH/MM3 (0-0.2) CBC Comment DIFF FINAL Differential Comment Prothrombin Time 11.3 SEC (9.8-11.6) Prothromb Time International Ratio 1.0 RATIO Activated Partial Thromboplast Time 27.5 SEC (24.3-30.1) Fibrinogen 413 mg/dL (227-377) Bedside Sodium 138 MMOL/L (138-146) Bedside Potassium 4.2 MMOL/L (3.5-4.9) Bedside Chloride 101 MMOL/L (98-109) Bedside Blood Urea Nitrogen 14 MG/DL (8-26) Bedside Creatinine 0.8 MG/DL (0.8-1.3) Bedside Glucose 116 MG/DL (60-95) Total Creatine Kinase 157 U/L (39-308) Troponin I 0.84 NG/ML (0.02-0.05) Result Diagram: 08/20/17 1013 08/20/17 0420 (1) BPH (benign prostatic hyperplasia) (2) S/P CABG x 3 Plan: on ASA (3) CAD (coronary artery disease) (4) Diabetes mellitus Plan: weaned off insulin gtt, on sliding scale (5) PAD (peripheral artery disease) Plan: on ASA, resume Trental when possible (6) Angina pectoris (7) Syncopal episodes Plan: s/p stroke alert EEG no evidence of seizures, some encephalopathy CTA head neck neg Neuro following Johnna Boggs Aug 20, 2017 17:46
[2017-08-20] MEDS: CHLORHEXIDINE 0.12% (ORAL KIT) 15 ML CUP MT SCH (20:00)
[2017-08-20] MEDS: VENLAFAXINE HCL XR 75 MG CAP PO SCH (21:00)
[2017-08-20] MEDS: TAMSULOSIN HCL 0.4 MG CAP PO SCH (21:00)
[2017-08-20] MEDS ORDERED: LORazepam 2 MG/ML VIAL IV SCH (21:15)
[2017-08-20] MEDS: SENNOSIDES 8.6 MG TAB PO SCH (22:13)
[2017-08-20] MEDS: DOCUSATE SODIUM 100 MG CAP PO SCH (22:13)
[2017-08-20] MEDS: GABAPENTIN 100 MG CAP PO SCH (22:13)
[2017-08-20] MEDS: DONEPEZIL HCL 5 MG TAB PO SCH (22:13)
[2017-08-20] MEDS: LATANOPROST 0.005% OPHT SOLN 2.5 ML BTL EACH EYE SCH (22:14)
[2017-08-20] MEDS: levETIRAcetam INJ 750 MG in SODIUM CHLORIDE 0.9% INJ 100 ML IV SCH (22:20)
[2017-08-21] VITALS (19 sets, daily range): BP systolic 93–122; BP diastolic 50–71; PULSE 50–100; RESP 14; TEMP 97.9–99.8; O2SAT 98–100
[2017-08-21] MEDS: INSULIN ASPART SUPPLEMENTAL SCALE SQ SCH ×6 (02:00→21:25)
[2017-08-21 04:54] LABS: BASOPHIL % 0.2 % (0.0-2.0); HEMATOCRIT 35.8 % (39.0-51.0); HEMO FLAGS DIFF FINAL; LYMPH % 6.9 % (9.0-44.0); LYMPHOCYTE # 1.1 TH/MM3 (1.0-4.8); MEAN CELL VOLUME 92.4 FL (80.0-100.0); MEAN CORPUSCULAR HEMOGLOBIN 31.9 PG (27.0-34.0); MEAN CORPUSCULAR HGB CONC 34.5 % (32.0-36.0); NEUT % 83.9 % (16.0-70.0); PLATELET COUNT 162 TH/MM3 (150-450); RED BLOOD COUNT 3.88 MIL/MM3 (4.50-5.90); RED CELL DISTRIBUTION WIDTH 14.2 % (11.6-17.2); WHITE BLOOD COUNT 15.5 TH/MM3 (4.0-11.0)
--- NOTE | 2017-08-21 05:19 | RADRPT ---
EXAM DATE/TIME: 08/21/2017 04:40 [place] COMPARISON: CHEST SINGLE AP, August 20, 2017, 11:48. INDICATIONS : Respiratory failure post CABG MEDICAL HISTORY : Cardiovascular disease. Hypertension. Diabetes mellitus type 2. SURGICAL HISTORY : Fusion, cervical. Tonsillectomy.Coronary artery stent ENCOUNTER: Subsequent ACUITY: 2 days PAIN SCORE: Non-responsive. LOCATION: Bilateral chest FINDINGS: Mild patchy parenchymal consolidation and small pleural effusion again seen on the left. Left chest t ube remains in place. No pneumothorax. Right lung is clear. Heart size stable, normal. Median sternotomy changes are again noted. Mediastinal drain remains in pl siri. Patient remains intubated. Endotracheal tube tip is approximately 5 cm above the emanuel. There is a n asogastric tube coursing into the stomach. CONCLUSION: No significant change. Yakov Calderón MD on August 21, 2017 at 5:17 Board Certified Radiologist. This report was verified electronically.
[2017-08-21 05:29] LABS: BICARBONATE 26.1 MEQ/L (21.0-32.0); POTASSIUM 4.1 MEQ/L (3.5-5.1)
[2017-08-21] MEDS: PANTOPRAZOLE SODIUM 40 MG VIAL IV PUSH SCH (06:00)
[2017-08-21] MEDS: RESP: ALBUTEROL 2.5 MG/IPRATROPIUM 0.5 MG NEB (SCH) NEB ×3 (07:46→19:48)
[2017-08-21] MEDS: CHLORHEXIDINE 0.12% (ORAL KIT) 15 ML CUP MT SCH ×2 (08:00→20:00)
[2017-08-21] MEDS: CARVEDILOL 3.125 MG TAB PO SCH ×2 (09:00→21:00)
[2017-08-21] MEDS: ASPIRIN 81 MG CHEW TAB PO SCH (09:24)
[2017-08-21] MEDS: DOCUSATE SODIUM 100 MG CAP PO SCH ×2 (09:24→21:00)
[2017-08-21] MEDS: MULTIVITAMINS/MINERALS THERAPEUTIC TAB PO SCH (09:25)
[2017-08-21] MEDS: AMIODARONE 200 MG TAB PO SCH ×2 (09:25→21:05)
[2017-08-21] MEDS: ATORVASTATIN 80 MG TAB PO SCH (09:26)
[2017-08-21] MEDS: MAGNESIUM HYDROXIDE SUSP 30 ML CUP PO SCH (09:26)
[2017-08-21] MEDS: POLYETHYLENE GLYCOL 17 GM PKG PO SCH (09:26)
[2017-08-21] MEDS: DORZOLAMIDE/TIMOLOL OPTH SOLN 10 ML BTL EACH EYE SCH ×2 (09:26→21:00)
[2017-08-21] MEDS: SODIUM CHLORIDE 0.9% FLUSH 10 ML FLUSH IV FLUSH SCH ×2 (09:27→21:08)
[2017-08-21] MEDS: levETIRAcetam INJ 750 MG in SODIUM CHLORIDE 0.9% INJ 100 ML IV SCH ×2 (09:30→22:50)
--- NOTE | 2017-08-21 10:06 | PD.CARD.PN ---
Subjective Subjective Remarks intubated, sedated Objective Medications Current Medications Medications (Trade) Dose Ordered Sig/Keren Route Start Time Stop Time Status Last Admin Sodium Chloride 500 ml @ 30 mls/hr [id number] PRN IV 08/19/17 06:00 08/22/17 05:59 (NovoLIN R INJ) See Protocol Table ... 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 PRN SQ 08/19/17 06:00 08/22/17 05:59 (NS Flush) 2 ml BID IV FLUSH 08/19/17 21:00 08/21/17 09:27 (NS Flush) 2 ml UNSCH PRN IV FLUSH 08/19/17 11:00 (Aspirin Chew) 81 mg DAILY PO 08/20/17 09:00 08/21/17 09:24 (Cordarone) 200 mg Q12HR PO 08/19/17 21:00 08/21/17 09:25 (Tylenol) 650 mg Q4H PRN PO 08/19/17 11:00 (Percocet 5-325 Mg) 1 tab Q3H PRN PO 08/19/17 11:00 08/20/17 06:18 (Zofran Inj) 4 mg Q6H PRN IV PUSH 08/19/17 11:00 08/20/17 08:26 (Apresoline Inj) 10 mg Q4H PRN IV PUSH 08/19/17 11:00 (Lopressor Inj) 2.5 mg Q1H PRN IV PUSH 08/19/17 11:00 (Duoneb Neb) 1 ampule Q2HR NEB PRN NEB 08/19/17 11:00 (Aricept) 5 mg HS PO 08/19/17 21:00 08/20/17 22:13 (Cosopt 2-0.5% Opth Soln) 1 drop BID EACH EYE 08/19/17 21:00 08/21/17 09:26 (Xalatan 0.005% Opth Soln) 1 drop HS EACH EYE 08/19/17 21:00 08/20/17 22:14 (Flomax) 0.4 mg HS PO 08/19/17 21:00 08/19/17 20:10 (Effexor Xr) 150 mg HS PO 08/19/17 21:00 08/19/17 20:10 (Lipitor) 80 mg DAILY PO 08/20/17 09:00 08/21/17 09:26 (Coreg) 3.125 mg BID PO 08/20/17 10:00 08/20/17 22:14 (Neurontin) 100 mg HS PO 08/20/17 21:00 08/20/17 22:13 (Duoneb Neb) 1 ampule Q6HR WHILE AWAKE NEB NEB 08/20/17 14:00 08/22/17 13:59 08/21/17 07:46 (Colace) 100 mg BID PO 08/20/17 21:00 08/21/17 09:24 (Theragran M Tab) 1 tab DAILY PO 08/20/17 10:15 08/21/17 09:25 (Milk Of Magnesia Liq) 30 ml DAILY PO 08/20/17 10:30 08/21/17 09:26 (Dulcolax Supp) 10 mg UNSCH PRN RECTAL 08/20/17 08:45 (Miralax) 17 gm DAILY PO 08/21/17 09:00 08/21/17 09:26 (Senokot) 8.6 mg HS PO 08/20/17 21:00 08/20/17 22:13 (Fleets Enema (Adult)) 133 ml UNSCH PRN RECTAL 08/20/17 08:45 (NovoLOG SUPPLEMENTAL SCALE) 1 02,06,10,14,18,22 SQ 08/20/17 14:00 08/21/17 11:59 08/21/17 09:29 (D50w (Vial) Inj) 50 ml UNSCH PRN IV PUSH 08/20/17 08:45 (Glucagon Inj) 1 mg UNSCH PRN OTHER 08/20/17 08:45 (NovoLOG SUPPLEMENTAL SCALE) 1 ACHS SQ 08/21/17 12:00 (Peridex 0.12% Liq) 15 ml BID@08,20 MT 08/20/17 20:00 08/20/17 20:00 Propofol 100 ml @ 2.16 mls/hr TITRATE PRN IV 08/20/17 11:45 08/20/17 21:36 Fentanyl Citrate 250 ml @ 5 mls/hr TITRATE PRN IV 08/20/17 11:45 (Protonix Inj) 40 mg Q24H IV PUSH 08/21/17 06:00 08/21/17 06:00 Levetriacetam 750 mg/Sodium Chloride 107.5 ml @ 215 mls/hr Q12H IV 08/20/17 22:30 08/21/17 09:30 Vital Signs / I&O Vital Signs Date Time Temp Pulse Resp B/P (MAP) Pulse Ox O2 Delivery O2 Flow Rate FiO2 08/21/17 07:46 99 40 08/21/17 04:00 97.9 87 14 108/60 (76) 99 08/21/17 04:00 87 08/21/17 04:00 40 08/21/17 04:00 99 Mechanical Ventilator 40 08/21/17 03:44 99 40 08/21/17 01:52 90 08/21/17 00:50 99 40 08/21/17 00:00 98.8 100 14 122/71 (88) 99 08/21/17 00:00 100 08/21/17 00:00 40 08/21/17 00:00 99 Mechanical Ventilator 40 08/20/17 22:20 98 40 08/20/17 20:40 99 40 08/20/17 20:00 92 08/20/17 20:00 93 14 129/79 (96) 99 08/20/17 20:00 40 08/20/17 20:00 99 Mechanical Ventilator 40 08/20/17 16:20 99 40 08/20/17 15:00 40 08/20/17 15:00 99 Mechanical Ventilator 40 08/20/17 15:00 75 08/20/17 15:00 98.4 75 16 124/78 (93) 99 08/20/17 13:53 99 40 08/20/17 11:45 99 40 08/20/17 11:00 97.7 76 16 97/80 (86) 99 Arterial Line 08/20/17 11:00 99 Mechanical Ventilator 100 08/20/17 11:00 76 08/20/17 10:25 98 100 I/O 08/20/17 08/20/17 08/20/17 08/21/17 08/21/17 08/21/17 07:00 15:00 23:00 07:00 15:00 23:00 Intake Total 672 ml 200 ml 300 ml 244.5 ml Output Total 1220 ml 1440 ml 1365 ml Balance -548 ml 200 ml -1140 ml -1120.5 ml Intake Oral 480 ml 200 ml 0 ml IV Total 192 ml 200 ml 100 ml 244.5 ml Output Urine Total 1025 ml 950 ml 525 ml Gastric Drainage Total 400 ml 800 ml Chest Tube Drainage Total 195 ml 90 ml 40 ml # Bowel Movements 0 0 Physical Exam GENERAL: SKIN: Warm and dry. HEAD: Normocephalic. EYES: No scleral icterus. No injection or drainage. NECK: Supple, trachea midline. No JVD or lymphadenopathy. CARDIOVASCULAR: Regular rate and rhythm without murmurs, gallops, or rubs. RESPIRATORY: Breath sounds equal bilaterally. No accessory muscle use. GASTROINTESTINAL: Abdomen soft, non-tender, nondistended. MUSCULOSKELETAL: No cyanosis, or edema. BACK: Nontender without obvious deformity. No CVA tenderness. Laboratory Laboratory Tests Test 08/20/17 10:13 08/21/17 04:20 White Blood Count 18.7 TH/MM3 15.5 TH/MM3 Red Blood Count 4.10 MIL/MM3 3.88 MIL/MM3 Hemoglobin 12.9 GM/DL 12.4 GM/DL Bedside Hemoglobin 12.2 G/DL Hematocrit 37.7 % 35.8 % Bedside Hematocrit 36.0 % Mean Corpuscular Volume 91.9 FL 92.4 FL Mean Corpuscular Hemoglobin 31.4 PG 31.9 PG Mean Corpuscular Hemoglobin Concent 34.1 % 34.5 % Red Cell Distribution Width 14.3 % 14.2 % Platelet Count 162 TH/MM3 162 TH/MM3 Mean Platelet Volume 8.3 FL 8.7 FL Neutrophils (%) (Auto) 83.5 % 83.9 % Lymphocytes (%) (Auto) 7.1 % 6.9 % Monocytes (%) (Auto) 9.2 % 9.0 % Eosinophils (%) (Auto) 0.0 % 0.0 % Basophils (%) (Auto) 0.2 % 0.2 % Neutrophils # (Auto) 15.6 TH/MM3 13.0 TH/MM3 Lymphocytes # (Auto) 1.3 TH/MM3 1.1 TH/MM3 Monocytes # (Auto) 1.7 TH/MM3 1.4 TH/MM3 Eosinophils # (Auto) 0.0 TH/MM3 0.0 TH/MM3 Basophils # (Auto) 0.0 TH/MM3 0.0 TH/MM3 CBC Comment DIFF FINAL DIFF FINAL Differential Comment Prothrombin Time 11.3 SEC Prothromb Time International Ratio 1.0 RATIO Activated Partial Thromboplast Time 27.5 SEC Fibrinogen 413 mg/dL Bedside Sodium 138 MMOL/L Bedside Potassium 4.2 MMOL/L Bedside Chloride 101 MMOL/L Bedside Blood Urea Nitrogen 14 MG/DL Bedside Creatinine 0.8 MG/DL Bedside Glucose 116 MG/DL Total Creatine Kinase 157 U/L Troponin I 0.84 NG/ML Blood Urea Nitrogen 21 MG/DL Creatinine 0.84 MG/DL Random Glucose 138 MG/DL Calcium Level 8.4 MG/DL Magnesium Level 2.0 MG/DL Sodium Level 138 MEQ/L Potassium Level 4.1 MEQ/L Chloride Level 102 MEQ/L Carbon Dioxide Level 26.1 MEQ/L Anion Gap 10 MEQ/L Estimat Glomerular Filtration Rate 88 ML/MIN Imaging Last 24 hours Impressions Chest X-Ray 08/21/17 0600 Signed Impressions: Service Date/Time: Monday, August 21, 2017 04:40 - CONCLUSION: No significant change. Yakov Calderón MD Assessment and Plan Problem List: (1) BPH (benign prostatic hyperplasia) ICD Codes: N40.0 - Benign prostatic hyperplasia without lower urinary tract symptoms (2) S/P CABG x 3 ICD Codes: Z95.1 - Presence of aortocoronary bypass graft (3) CAD (coronary artery disease) ICD Codes: I25.10 - Atherosclerotic heart disease of [place] coronary artery without angina pectoris (4) Diabetes mellitus ICD Codes: E11.9 - Type 2 diabetes mellitus without complications (5) PAD (peripheral artery disease) ICD Codes: I73.9 - Peripheral vascular disease, unspecified (6) Angina pectoris ICD Codes: I20.9 - Angina pectoris, unspecified (7) Syncopal episodes ICD Codes: R55 - Syncope and collapse Assessment and Plan pod#2 cabg - wean vent as tolerated, start statin, continue aspirin 81 mg qd Scott Aviles MD Aug 21, 2017 10:06
[2017-08-21] MEDS ORDERED: SODIUM CHLOR 0.9% 1000 ML INJ 1,000 ML IV ONE (11:00)
[2017-08-21] MEDS ORDERED: TERBUTALINE INJ 1 MG/ML AMP SQ PRN (11:00)
[2017-08-21] MEDS ORDERED: PHENYLEPHRINE HCL 80 MG/D5W 492 ML ADMIX IV PRN ×2 (11:00)
[2017-08-21] MEDS ORDERED: AMIODARONE INJ 900 MG in DEXTROSE 5% IN WATE 500 ML INJ 482 ML IV PRN ×2 (11:28)
[2017-08-21] MEDS ORDERED: AMIODARONE INJ 450 MG in DEXTROSE 5% IN WATE(EXCEL) INJ 241 ML IV PRN ×2 (11:45)
[2017-08-21] MEDS ORDERED: AMIODARONE INJ 450 MG in D5W (EXCEL BAG) INJ 241 ML IV PRN (12:00)
[2017-08-21] MEDS ORDERED: AMIODARONE INJ 150 MG in DEXTROSE 5% IN WATER 100ML INJ 100 ML IV ONE ×2 (12:00)
[2017-08-21] MEDS: MAGNESIUM SULFATE 1 GM PREMIX 100 ML IV SCH ×2 (12:30→13:48)
--- NOTE | 2017-08-21 15:36 | PD.CAR.PN ---
CVT Progress Note Subjective/Hospital Course: 82/ male hx of recent chest pain , unstable angina, + stress / underwent heart cath multi vessel disease EF 50% admitted electively for surgery PMH: CAD, DM, PAD, vertigo , BPH, glaucoma surgery :08/19 CABG x 3 CAIN to LAD - very poor SVG to OM1 - fair SVG to PDA - fair EVH 08/20 pt did well this am alert and oriented , extubated after surgery , did c/o of nausea and lightheadedness this am after getting up from chair to bed was called later in am 9:55 am 11/27 , patient was ambulatory in the hallway with acutely became unresponsive with a leftward gaze at approximately 955. This patient was placed in a chair and moved directly to his room in 446. Patient was emergently intubated for airway protection using Midazolan and rocuronium. Stroke alert was called. Stat CT brain/CTA head and neck revealed no acute timings. Not a candidate for TPA due to recent CABG. He currently undergoing. Patient is currently hemodynamically stable as the course of day pt more awake, opens eyes and attempts to track, not on any sedation, spoke in depth with son remains intubated, eval for more alertness in am , appreciate Neuro and CCM chest tubes remain in place 08/21 pt placed on keppra and propofol last pm, per nursing staff, pt had jerky movements to left side of face, left arm and leg despite EEG showing no evidence of seizure. BP labile while on propofol, fluid bolus given CCM following , chest tube left in place while pt on vent pt remains on vent not opening eyes, or following commands MRI Brain pending Objective: GENERAL: SKIN: Warm and dry. prevena dressing to chest HEAD: Atraumatic. Normocephalic. EYES: Pupils equal and round. No scleral icterus. No injection or drainage. ENT: No nasal bleeding or discharge. Mucous membranes pink and moist. NECK: Trachea midline. No JVD. CARDIOVASCULAR: irregular rate and rhythm RESPIRATORY: No accessory muscle use. Clear to auscultation. Breath sounds equal bilaterally. on vent AC mode, chest tube in place 40cc/ 12 hrs , no air leak GASTROINTESTINAL: Abdomen soft, non-tender, nondistended. Hepatic and splenic margins not palpable. MUSCULOSKELETAL: Extremities without clubbing, cyanosis, or edema. No obvious deformities. NEUROLOGICAL: sedated on vent , pupils 2mm midline Vital Signs Date Time Temp Pulse Resp B/P (MAP) Pulse Ox O2 Delivery O2 Flow Rate FiO2 08/21/17 13:40 98 40 08/21/17 12:30 85 98/60 08/21/17 12:30 83 96/52 08/21/17 12:29 93 98/60 08/21/17 11:00 98.0 98 14 108/60 (76) 98 08/21/17 11:00 40 08/21/17 11:00 96 Mechanical Ventilator 40 08/21/17 11:00 98 08/21/17 09:58 99 40 08/21/17 08:00 87 08/21/17 08:00 96 Mechanical Ventilator 40 08/21/17 08:00 40 08/21/17 08:00 99.8 87 14 93/58 (70) 99 08/21/17 07:46 99 40 08/21/17 04:00 97.9 87 14 108/60 (76) 99 08/21/17 04:00 87 08/21/17 04:00 40 08/21/17 04:00 99 Mechanical Ventilator 40 08/21/17 03:44 99 40 08/21/17 01:52 90 08/21/17 00:50 99 40 08/21/17 00:00 98.8 100 14 122/71 (88) 99 08/21/17 00:00 100 08/21/17 00:00 40 08/21/17 00:00 99 Mechanical Ventilator 40 08/20/17 22:20 98 40 08/20/17 20:40 99 40 08/20/17 20:00 92 08/20/17 20:00 93 14 129/79 (96) 99 08/20/17 20:00 40 08/20/17 20:00 99 Mechanical Ventilator 40 08/20/17 16:20 99 40 Labs: Laboratory Tests Test 08/21/17 04:20 White Blood Count 15.5 TH/MM3 (4.0-11.0) Red Blood Count 3.88 MIL/MM3 (4.50-5.90) Hemoglobin 12.4 GM/DL (13.0-17.0) Hematocrit 35.8 % (39.0-51.0) Mean Corpuscular Volume 92.4 FL (80.0-100.0) Mean Corpuscular Hemoglobin 31.9 PG (27.0-34.0) Mean Corpuscular Hemoglobin Concent 34.5 % (32.0-36.0) Red Cell Distribution Width 14.2 % (11.6-17.2) Platelet Count 162 TH/MM3 (150-450) Mean Platelet Volume 8.7 FL (7.0-11.0) Neutrophils (%) (Auto) 83.9 % (16.0-70.0) Lymphocytes (%) (Auto) 6.9 % (9.0-44.0) Monocytes (%) (Auto) 9.0 % (0.0-8.0) Eosinophils (%) (Auto) 0.0 % (0.0-4.0) Basophils (%) (Auto) 0.2 % (0.0-2.0) Neutrophils # (Auto) 13.0 TH/MM3 (1.8-7.7) Lymphocytes # (Auto) 1.1 TH/MM3 (1.0-4.8) Monocytes # (Auto) 1.4 TH/MM3 (0-0.9) Eosinophils # (Auto) 0.0 TH/MM3 (0-0.4) Basophils # (Auto) 0.0 TH/MM3 (0-0.2) CBC Comment DIFF FINAL Differential Comment Blood Urea Nitrogen 21 MG/DL (7-18) Creatinine 0.84 MG/DL (0.60-1.30) Random Glucose 138 MG/DL (74-106) Calcium Level 8.4 MG/DL (8.5-10.1) Magnesium Level 2.0 MG/DL (1.5-2.5) Sodium Level 138 MEQ/L (136-145) Potassium Level 4.1 MEQ/L (3.5-5.1) Chloride Level 102 MEQ/L (98-107) Carbon Dioxide Level 26.1 MEQ/L (21.0-32.0) Anion Gap 10 MEQ/L (5-15) Estimat Glomerular Filtration Rate 88 ML/MIN (>89) Result Diagram: 08/21/1741908/21/17419 Telemetry: Afib (1) BPH (benign prostatic hyperplasia) (2) S/P CABG x 3 Plan: on ASA , amiodarone , BB on hold for SBP<100 (3) CAD (coronary artery disease) (4) Diabetes mellitus Plan: weaned off insulin gtt, on sliding scale (5) PAD (peripheral artery disease) Plan: on ASA, resume Trental when possible (6) Angina pectoris (7) Syncopal episodes Plan: s/p stroke alert EEG no evidence of seizures, some encephalopathy CTA head neck neg Neuro following MRI Brain pending (8) Afib Plan: on amiodarone Johnna Boggs Aug 21, 2017 15:36
--- NOTE | 2017-08-21 15:37 | MG ---
cc: SYEDA CARSON M.D. Lab No: [id number] Date: 08/21/17 Age: 82 Sex: M Race: DATE OF [address] Lawrence ROOM [id number] Intubated on Diprivan at 10 micrograms. Photic done, withdrew in the legs, ___ grimaces. The last EEG showed encephalopathy, so repeat. Nursing states that he has left arm, face and head twitching. MEDICATIONS On Keppra, gabapentin and Diprivan, also Aricept and Cordarone. DESCRIPTION OF RECORD Overall moderate slowing predominately of delta frequency bilaterally 2 Hz. He is noted to have some left shoulder, left head movements, twitching, however, there is no spike or wave discharges or any sharps. Photic stimulation without a driving response. IMPRESSION Moderately severe encephalopathy, of the twitching that is noted the recording does not correlate with any epileptiform features. Clinical correlation. Syeda Carson MD DF/SATYA /3:14 PM /3:25 PM
[2017-08-21] MEDS ORDERED: ATROPINE SULFATE 1 MG/10 ML SYRINGE ONE (17:23)
[2017-08-21] MEDS ORDERED: EPINEPHrine HCL (1:10,000) 1 MG/10 ML SYRINGE ONE (17:23)
--- NOTE | 2017-08-21 17:24 | HHI.CCPN ---
Subjective Remarks/Hospital Course Hospital Course: This is an 82-year-old male. Date of admission 08/19/2017. Date of consultation 08/20/2017. Past medical history includes hypertension, dyslipidemia, peripheral vascular disease, dementia, atrial fibrillation, depression. BPH, gastroesophageal reflux disease. One week ago, patient had an elective catheterization with Dr. Aviles revealed a minimal luminal area of approximately 4 mm squared by IVUS of the distal left main, moderate to severe LAD fibrocalcific disease. Yesterday the patient underwent a CABG 3 CAIN to LAD, SVG to OM1 and PDA with EVH per Dr. Rogel. One pleural/ mediastinal chest tube placed. Sanguinous output noted. Today, patient was ambulatory in the hallway with acutely became unresponsive with a leftward gaze at approximately 955. This patient was placed in a chair and moved directly to his room in 446. Patient was emergently intubated for airway protection using Midazolam and rocuronium. Stroke alert was called. Stat CT brain/CTA head and neck revealed no acute timings. Not a candidate for TPA due to recent CABG. He currently undergoing. Patient is currently hemodynamically stable Subjective: 08/21: remains with significant neuro deficits. on my evaluation, he has no movement of upper and lower extremities. however, with stimulation, will open eyes, tracks, and even appears to blink eyes to command and stick out tongue to command. grimaces to pain in all 4 extremities which would suggest sensation is grossly intact. on low dose phenylephrine to maintain cerebral perfusion pressure. Objective Vital Signs Date Time Temp Pulse Resp B/P (MAP) Pulse Ox O2 Delivery O2 Flow Rate FiO2 08/21/17 15:00 50 08/21/17 15:00 97.9 14 107/50 (69) 99 08/21/17 15:00 Mechanical Ventilator 40 08/20/17 09:21 2.00 Intake and Output 08/21/17 08/21/17 08/22/17 08:00 16:00 00:00 Intake Total 137 ml 202 ml Output Total 1365 ml Balance -1228 ml 202 ml Result Diagram: 08/21/1741908/21/17419 Imaging Last Impressions Chest X-Ray 08/20/17 0500 Signed Impressions: Service Date/Time: , August 20, 2017 04:11 - CONCLUSION: 1. Left-sided chest tube with questionable small lateral pneumothorax. Enrique Echeverria MD Head CTA 08/20/17 0000 Signed Impressions: Service Date/Time: July 10:49 - CONCLUSION: 1. Negative CTA examination of the head. Specifically, no evidence for large vessel occlusion. Dragan Oreilly MD Head CT 08/20/17 0000 Signed Impressions: Service Date/Time: July 10:35 - CONCLUSION: 1. Senescent changes. 2. No acute intracranial abnormality. 3. Left maxillar sinus disease. Dragan Oreilly MD Objective Remarks GENERAL: 82-year-old male, lying in bed, intubated. SKIN: Warm and dry. HEAD: Atraumatic. Normocephalic. EYES: Pupils equal and round about 1-2 mm bilaterally and sluggish. No scleral icterus. No injection or drainage. ENT: No nasal bleeding or discharge. Mucous membranes pink and moist. NECK: Trachea midline. No JVD. Right IJ Cordis with clean dry and intact CARDIOVASCULAR: a flutter by tele. RESPIRATORY: No accessory muscle use. Clear to auscultation. Breath sounds equal bilaterally. Mediastinal/left chest tube intact. GASTROINTESTINAL: Abdomen soft, non-tender, nondistended. MUSCULOSKELETAL: Extremities without significant peripheral edema. NEUROLOGICAL: Positive gag. Positive corneal reflex. Pupils as above. grimaces to pain in all 4 extremities. will open eyes to stimulation. appears to blink to command. sticks tongue out to command. does not move extremities spontaneously or withdraw to pain. A/P Assessment and Plan Assessment: 82yM POD 2 s/p CABG, course complicated by acute-onset encephalopathy and possible CVA. CTA head/neck negative for embolic source. Will obtain MRI brain today. will also obtain MRI c-spine given upper and lower extremity motor deficits, as a high cervical lesion could cause this. Remains critically ill and off-pathway. continue phenylephrine to maintain cerebral perfusion pressure in the setting of possible CVA. Neuro/Psych: Acute encephalopathy Possible acute CVA Migraine headache Glaucoma History of vertigo Dementia disorder NOS History anterior spinal fusion History L3/4 level laminectomy Peripheral neuropathy Propofol/fentanyl drips for sedation/analgesia while intubated Goal of RASS -2 Daily sedation vacation 10/[address] brain revealed no acute intracranial findings. Maxillary sinus disease. 10/[address] angiogram brain revealed no large vessel disease. Carotid results radial towards left carotid. Moderate disease but not flow-limiting.. Specifically no basilar artery disease. Currently on donepezil 5 mg daily for dementia. Continue Continued dorzol/timolol 2/0.5 centimeters one drop twice a day and latanoprost 0.005% 1 drop each eye at night for glaucoma Continue gabapentin [address] Lawrence neurology consulted EEG 08/20: severe slowing, encephalopathy EEG 08/21: repeat, moderate slowing. MRI brain and c-spine ordered. pending. CV: Postop day 2 CABG 3 - CAIN to LAD, SVG to OM1/PDA with EVH by Dr. Rollins Coronary artery disease Hypertension Dyslipidemia Claudication/peripheral vascular disease Continue amiodarone 200 mg by mouth twice a day Continue carvedilol 3.125 mg twice a day lisinopril 5 mill grams daily for hypertension Currently on atorvastatin 80 mg by mouth daily. On rosuvastatin 40 mg daily at home. For dyslipidemia Continue aspirin 81 mg daily Currently holding pentoxifylline 400 mg daily for claudication Resp: Acute hypoxic and hypercarbic respiratory failure History of JHON does not use CPAP Ventilator bundle No SBT until mental status improves. Albuterol/ipratropium aerosols every 6 hours while awake Follow-up chest x-ray Mediastinal/left chest tube to -20 cm H2O. GI: Gastroesophageal reflux disease Start tube feeds after MRI Pantoprazole for GI prophylaxis Docusate sodium for bowel regimen : BPH History of nephrolithiasis Continue tamsulosin 0.4 mg by mouth daily. Maintain Chris catheter Endo: Diabetes mellitus Currently holding insulin glargine 35 units at night sitagliptin/metformin 20/ 500 one tablet being held as well Sliding-scale insulin per CT surgery protocol Renal: Creatinine currently within normal limits Monitor urine output Accurate I's and O's Heme: Leukocytosis Normocytic anemia Monitor CBC daily. Follow trends. ID: Postoperative antibiotics with cefazolin 1 g IV every 8 hours [address] surgery Monitor for infection FEN: Replace electrolytes as clinically indicated MSK: Osteoarthritis PT evaluate and treat Access - Right IJ Cortis/dual-lumen day #3- continue Prophylaxis - GI - pantoprazole - DVT - BHASKAR hose left lower extremity/pharmacological prophylaxis when okay with CT surgery Critical Care: The total critical care time was 31 minutes. Time to perform other separately billable procedures was not included in the critical care time. Jerome Bales MD Aug 21, 2017 17:24
--- NOTE | 2017-08-21 18:11 | ECHRPT ---
Indication: EF in setting of CHF CONCLUSIONS Images are completely unreadable. Consider alternative imaging modality if needed. BP: / HR: Rhythm: Technical Quality:Unreadable Shree Andres MD (Electronically Signed) Final Date:21 August 2017 18:10
--- NOTE | 2017-08-21 18:12 | RADRPT ---
EXAM DATE/TIME: 08/21/2017 17:35 [facility] COMPARISON: No previous studies available for comparison. INDICATIONS : CVA. Decreased level of consciousness. MEDICAL HISTORY : Hypertension. Diabetes mellitus type 2. Cardiovascular disease. SURGICAL HISTORY : Fusion, cervical. Appendectomy. Lumbar laminectomy. Bilateral TKA. Hernia repair. ENCOUNTER: Initial ACUITY: 1 day PAIN SCORE: 0/10 LOCATION: cranial TECHNIQUE: Multiplanar, multisequence MRI of the brain was performed without contrast. FINDINGS: No abnormality on diffusion weighted to suggest recent infarct. No mass effect or shift. Cortical vol ume loss. There is irregularity of the dens with hypertrophic changes and some stenosis at the craniocervical j unction. MRI cervical spine pending. CONCLUSION: 1. No acute findings. Cortical volume loss. Abnormal hypertrophy around the dens. MRI cervical spine pending. Jarrell Little MD on August 21, 2017 at 18:05 Board Certified Radiologist. This report was verified electronically.
[2017-08-21] MEDS: DEXT 5%-NACL 0.45% 1000 ML INJ 1,000 ML IV SCH (18:39)
--- NOTE | 2017-08-21 18:50 | RADRPT ---
EXAM DATE/TIME: 08/21/2017 17:35 [facility] COMPARISON: No previous studies available for comparison. INDICATIONS : Myelopathy. MEDICAL HISTORY : Hypertension. Diabetes mellitus type 1. Cardiovascular disease. SURGICAL HISTORY : Appendectomy. Fusion, cervical. Lumbar laminectomy. Bilateral TKA. Hernia repair. ENCOUNTER: Initial ACUITY: 1 day PAIN SCORE: 0/10 LOCATION: Paraspinal TECHNIQUE: Multiplanar, multisequence MRI examination of the cervical spine was performed. FINDINGS: There is abnormal hypertrophy around the dens results in effacement on the right side of the cranioce rvical junction and some flexion of the cervical cord though no significant cord compression. Dens ma y contain some erosions. No definite fracture. There is diffuse idiopathic skeletal hyperostosis and previous fusion across C6-7. There is moderate degenerative disc disease that results in effacement of the thecal sac around the cord within the cer vical spine most notable at C3-4. CONCLUSION: 1. Abnormal hypertrophic change around the dens resulting in a moderate lateral recess stenosis on th e right at the craniocervical junction with encroachment on the right hemicord and some cord deflecti on. No cord edema. 2. At C3-4 there is mild to moderate canal stenosis effacing the thecal sac. No cord edema. 3. Previous fusion at C6-7. No acute fracture. Jarrell Little MD on August 21, 2017 at 18:43 Board Certified Radiologist. This report was verified electronically.
[2017-08-21 18:59] LABS: HDL CHOLESTEROL 48.2 MG/DL (40.0-60.0)
[2017-08-21] MEDS: DONEPEZIL HCL 5 MG TAB PO SCH (21:00)
[2017-08-21] MEDS: VENLAFAXINE HCL XR 75 MG CAP PO SCH (21:00)
[2017-08-21] MEDS: GABAPENTIN 100 MG CAP PO SCH (21:00)
[2017-08-21] MEDS: TAMSULOSIN HCL 0.4 MG CAP PO SCH (21:05)
[2017-08-21] MEDS: SENNOSIDES 8.6 MG TAB PO SCH (21:05)
[2017-08-21] MEDS: LATANOPROST 0.005% OPHT SOLN 2.5 ML BTL EACH EYE SCH (21:06)
--- NOTE | 2017-08-21 23:45 | HHI.PR ---
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 BILLER PRN SQ 08/19/17 06:00 08/22/17 05:59 (NS Flush) 2 ml BID IV FLUSH 08/19/17 21:00 08/21/17 21:08 (NS Flush) 2 ml UNSCH PRN IV FLUSH 08/19/17 11:00 (Aspirin Chew) 81 mg DAILY PO 08/20/17 09:00 08/21/17 09:24 (Tylenol) 650 mg Q4H PRN PO 08/19/17 11:00 (Percocet 5-325 Mg) 1 tab Q3H PRN PO 08/19/17 11:00 08/20/17 06:18 (Zofran Inj) 4 mg Q6H PRN IV PUSH 08/19/17 11:00 08/20/17 08:26 (Apresoline Inj) 10 mg Q4H PRN IV PUSH 08/19/17 11:00 (Lopressor Inj) 2.5 mg Q1H PRN IV PUSH 08/19/17 11:00 (Duoneb Neb) 1 ampule Q2HR NEB PRN NEB 08/19/17 11:00 (Aricept) 5 mg HS PO 08/19/17 21:00 08/20/17 22:13 (Cosopt 2-0.5% Opth Soln) 1 drop BID EACH EYE 08/19/17 21:00 08/21/17 09:26 (Xalatan 0.005% Opth Soln) 1 drop HS EACH EYE 08/19/17 21:00 08/21/17 21:06 (Flomax) 0.4 mg HS PO 08/19/17 21:00 08/21/17 21:05 (Effexor Xr) 150 mg HS PO 08/19/17 21:00 08/19/17 20:10 (Lipitor) 80 mg DAILY PO 08/20/17 09:00 08/21/17 09:26 (Coreg) 3.125 mg BID PO 08/20/17 10:00 08/20/17 22:14 (Neurontin) 100 mg HS PO 08/20/17 21:00 08/20/17 22:13 (Duoneb Neb) 1 ampule Q6HR WHILE AWAKE NEB NEB 08/20/17 14:00 08/22/17 13:59 08/21/17 19:48 (Colace) 100 mg BID PO 08/20/17 21:00 08/21/17 09:24 (Theragran M Tab) 1 tab DAILY PO 08/20/17 10:15 08/21/17 09:25 (Milk Of Magnesia Liq) 30 ml DAILY PO 08/20/17 10:30 08/21/17 09:26 (Dulcolax Supp) 10 mg UNSCH PRN RECTAL 08/20/17 08:45 (Miralax) 17 gm DAILY PO 08/21/17 09:00 08/21/17 09:26 (Senokot) 8.6 mg HS PO 08/20/17 21:00 08/21/17 21:05 (Fleets Enema (Adult)) 133 ml UNSCH PRN RECTAL 08/20/17 08:45 (D50w (Vial) Inj) 50 ml UNSCH PRN IV PUSH 08/20/17 08:45 (Glucagon Inj) 1 mg UNSCH PRN OTHER 08/20/17 08:45 (NovoLOG SUPPLEMENTAL SCALE) 1 ACHS SQ 08/21/17 12:00 08/21/17 21:25 (Peridex 0.12% Liq) 15 ml BID@08,20 MT 08/20/17 20:00 08/21/17 20:00 (Protonix Inj) 40 mg Q24H IV PUSH 08/21/17 06:00 08/21/17 06:00 Levetriacetam 750 mg/Sodium Chloride 107.5 ml @ 215 mls/hr Q12H IV 08/20/17 22:30 08/21/17 22:50 (Brethine Inj) 1 mg UNSCH PRN SQ 08/21/17 11:00 (Cordarone) 200 mg Q12HR PO 08/21/17 21:00 08/21/17 21:05 Dextrose/Sodium Chloride 1,000 ml @ 75 mls/hr [id number] IV 08/21/17 17:15 08/21/17 18:39 Allergies Allergies Coded Allergies No Known Allergies (Kuribgxi95/25/17) Review of Systems All other ROS: ROS reviewed as documented in chart Exam I&O / VS 08/21/17 08/21/17 08/22/17 15:00 23:00 07:00 Intake Total 1382 ml 323 ml Output Total 385 ml Balance 1382 ml -62 ml IV Total 1382 ml 73 ml Tube Irrigant 250 ml Output Urine Total 335 ml Chest Tube Drainage Total 50 ml # Bowel Movements 0 Vital Signs Date Time Temp Pulse Resp B/P (MAP) Pulse Ox O2 Delivery O2 Flow Rate FiO2 08/21/17 23:05 99 40 08/21/17 20:17 98.8 52 14 98/68 (78) 99 08/21/17 20:17 40 08/21/17 20:17 99 Mechanical Ventilator 40 08/21/17 20:15 99 40 08/21/17 18:24 100 100 08/21/17 15:35 99 40 08/21/17 15:00 50 08/21/17 15:00 97.9 56 14 107/50 (69) 99 08/21/17 15:00 99 Mechanical Ventilator 40 08/21/17 15:00 40 08/21/17 13:40 98 40 08/21/17 12:30 85 98/60 08/21/17 12:30 83 96/52 08/21/17 12:29 93 98/60 08/21/17 11:00 98.0 98 14 108/60 (76) 98 08/21/17 11:00 40 08/21/17 11:00 96 Mechanical Ventilator 40 08/21/17 11:00 98 08/21/17 09:58 99 40 08/21/17 08:00 87 08/21/17 08:00 96 Mechanical Ventilator 40 08/21/17 08:00 40 08/21/17 08:00 99.8 87 14 93/58 (70) 99 08/21/17 07:46 99 40 08/21/17 04:00 97.9 87 14 108/60 (76) 99 08/21/17 04:00 87 08/21/17 04:00 40 08/21/17 04:00 99 Mechanical Ventilator 40 08/21/17 03:44 99 40 08/21/17 01:52 90 08/21/17 00:50 99 40 08/21/17 00:00 98.8 100 14 122/71 (88) 99 08/21/17 00:00 100 08/21/17 00:00 40 08/21/17 00:00 99 Mechanical Ventilator 40 Exam Comments Intubated and sedated pupils are 2mm Plantars are mute Objective Radiology Results Last 72 hours Impressions Brain MRI 08/21/17 1427 Signed Impressions: Service Date/Time: Monday, August 21, 2017 17:35 - CONCLUSION: 1. No acute findings. Cortical volume loss. Abnormal hypertrophy around the dens. MRI cervical spine pending. Jarrell Little MD Chest X-Ray 08/21/17 0600 Signed Impressions: Service Date/Time: Monday, August 21, 2017 04:40 - CONCLUSION: No significant change. Yakov Calderón MD Cervical Spine MRI 08/21/17 0000 Signed Impressions: Service Date/Time: Monday, August 21, 2017 17:35 - CONCLUSION: 1. Abnormal hypertrophic change around the dens resulting in a moderate lateral recess stenosis on the right at the craniocervical junction with encroachment on the right hemicord and some cord deflection. No cord edema. 2. At C3-4 there is mild to moderate canal stenosis effacing the thecal sac. No cord edema. 3. Previous fusion at C6-7. No acute fracture. Jarrell Little MD Chest X-Ray 08/20/17 0500 Signed Impressions: Service Date/Time: July 04:11 - CONCLUSION: 1. Left-sided chest tube with questionable small lateral pneumothorax. Enrique Echeverria MD Neck CTA 08/20/17 0000 Signed Impressions: Service Date/Time: July 10:49 - CONCLUSION: 1. There is moderate calcified atherosclerotic plaquing at both carotid bifurcations. 2. No significant focal or high-grade stenosis is demonstrated. 3. There is tortuosity of the left internal carotid artery. Kedar Smith MD Head CTA 08/20/17 0000 Signed Impressions: Service Date/Time: July 10:49 - CONCLUSION: 1. Negative CTA examination of the head. Specifically, no evidence for large vessel occlusion. Dragan Oreilly MD Head CT 08/20/17 0000 Signed Impressions: Service Date/Time: July 10:35 - CONCLUSION: 1. Senescent changes. 2. No acute intracranial abnormality. 3. Left maxillar sinus disease. Dragan Oreilly MD Chest X-Ray 08/20/17 0000 Signed Impressions: Service Date/Time: July 11:48 - CONCLUSION: The ET tube appears to be in good position. No evidence of pneumothorax. Kedar Smith MD Micro and Labs Laboratory Tests Test 08/21/17 04:20 White Blood Count 15.5 Red Blood Count 3.88 Hemoglobin 12.4 Hematocrit 35.8 Mean Corpuscular Volume 92.4 Mean Corpuscular Hemoglobin 31.9 Mean Corpuscular Hemoglobin Concent 34.5 Red Cell Distribution Width 14.2 Platelet Count 162 Mean Platelet Volume 8.7 Neutrophils (%) (Auto) 83.9 Lymphocytes (%) (Auto) 6.9 Monocytes (%) (Auto) 9.0 Eosinophils (%) (Auto) 0.0 Basophils (%) (Auto) 0.2 Neutrophils # (Auto) 13.0 Lymphocytes # (Auto) 1.1 Monocytes # (Auto) 1.4 Eosinophils # (Auto) 0.0 Basophils # (Auto) 0.0 CBC Comment DIFF FINAL Differential Comment Blood Urea Nitrogen 21 Creatinine 0.84 Random Glucose 138 Calcium Level 8.4 Magnesium Level 2.0 Sodium Level 138 Potassium Level 4.1 Chloride Level 102 Carbon Dioxide Level 26.1 Anion Gap 10 Estimat Glomerular Filtration Rate 88 Triglycerides Level 106 Cholesterol Level 110 LDL Cholesterol 41 HDL Cholesterol 48.2 Cholesterol/HDL Ratio 2.28 Umair Lawrence MD Aug 21, 2017 23:45
[2017-08-22] VITALS (13 sets, daily range): BP systolic 96–116; BP diastolic 3–62; PULSE 69–75; RESP 14; TEMP 98–99.4; O2SAT 94–99
[2017-08-22 04:47] LABS: HEMATOCRIT 28.9 % (39.0-51.0); MEAN CELL VOLUME 92.1 FL (80.0-100.0); MEAN CORPUSCULAR HEMOGLOBIN 32.3 PG (27.0-34.0); PLATELET COUNT 140 TH/MM3 (150-450); RED BLOOD COUNT 3.14 MIL/MM3 (4.50-5.90); RED CELL DISTRIBUTION WIDTH 14.2 % (11.6-17.2); REVIEW FLAG FINAL; WHITE BLOOD COUNT 13.4 TH/MM3 (4.0-11.0)
[2017-08-22 05:20] LABS: BICARBONATE 29.1 MEQ/L (21.0-32.0); POTASSIUM 3.8 MEQ/L (3.5-5.1)
[2017-08-22] MEDS: PANTOPRAZOLE SODIUM 40 MG VIAL IV PUSH SCH (05:57)
[2017-08-22] MEDS: DEXT 5%-NACL 0.45% 1000 ML INJ 1,000 ML IV SCH ×2 (06:02→19:55)
[2017-08-22] MEDS: RESP: ALBUTEROL 2.5 MG/IPRATROPIUM 0.5 MG NEB (SCH) NEB (07:59)
[2017-08-22] MEDS: MULTIVITAMINS/MINERALS THERAPEUTIC TAB PO SCH (08:13)
[2017-08-22] MEDS: ATORVASTATIN 80 MG TAB PO SCH (08:13)
[2017-08-22] MEDS: MAGNESIUM HYDROXIDE SUSP 30 ML CUP PO SCH (08:13)
[2017-08-22] MEDS: CHLORHEXIDINE 0.12% (ORAL KIT) 15 ML CUP MT SCH ×2 (08:13→20:00)
[2017-08-22] MEDS: AMIODARONE 200 MG TAB PO SCH ×3 (08:13→21:00)
[2017-08-22] MEDS: DOCUSATE SODIUM 100 MG CAP PO SCH ×2 (08:13→21:00)
[2017-08-22] MEDS: ASPIRIN 81 MG CHEW TAB PO SCH (08:13)
[2017-08-22] MEDS: POLYETHYLENE GLYCOL 17 GM PKG PO SCH (08:14)
[2017-08-22] MEDS: DORZOLAMIDE/TIMOLOL OPTH SOLN 10 ML BTL EACH EYE SCH ×2 (08:14→21:00)
[2017-08-22] MEDS: INSULIN ASPART SUPPLEMENTAL SCALE SQ SCH ×4 (08:15→22:20)
[2017-08-22] MEDS: CARVEDILOL 3.125 MG TAB PO SCH ×2 (08:15→21:00)
[2017-08-22] MEDS: SODIUM CHLORIDE 0.9% FLUSH 10 ML FLUSH IV FLUSH SCH ×2 (08:15→21:00)
--- NOTE | 2017-08-22 08:25 | PD.CAR.PN ---
CVT Progress Note CVT: POD #: 3 Subjective/Hospital Course: 82/ male hx of recent chest pain , unstable angina, + stress / underwent heart cath multi vessel disease EF 50% admitted electively for surgery PMH: CAD, DM, PAD, vertigo , BPH, glaucoma surgery :08/19 CABG x 3 CAIN to LAD - very poor SVG to OM1 - fair SVG to PDA - fair EVH 08/20 pt did well this am alert and oriented , extubated after surgery , did c/o of nausea and lightheadedness this am after getting up from chair to bed was called later in am 9:55 am 11/27 , patient was ambulatory in the hallway with acutely became unresponsive with a leftward gaze at approximately 955. This patient was placed in a chair and moved directly to his room in 446. Patient was emergently intubated for airway protection using Midazolan and rocuronium. Stroke alert was called. Stat CT brain/CTA head and neck revealed no acute timings. Not a candidate for TPA due to recent CABG. He currently undergoing. Patient is currently hemodynamically stable as the course of day pt more awake, opens eyes and attempts to track, not on any sedation, spoke in depth with son remains intubated, eval for more alertness in am , appreciate Neuro and [facility] chest tubes remain in place 08/21 pt placed on keppra and propofol last pm, per nursing staff, pt had jerky movements to left side of face, left arm and leg despite EEG showing no evidence of seizure. BP labile while on propofol, fluid bolus given CCM following , chest tube left in place while pt on vent pt remains on vent not opening eyes, or following commands MRI Brain pending 08/22/17 Improving. Following commands, weaning from ventilator tube feeds started Objective: Vital Signs Date Time Temp Pulse Resp B/P (MAP) Pulse Ox O2 Delivery O2 Flow Rate FiO2 08/22/17 08:08 99 40 08/22/17 08:00 40 08/22/17 04:53 40 08/22/17 03:36 99 40 08/22/17 03:15 99 Mechanical Ventilator 40 08/22/17 03:15 98.8 70 14 96/56 (69) 99 08/22/17 03:00 69 08/22/17 01:05 99 40 08/22/17 01:00 40 08/21/17 23:15 98.9 64 14 93/62 (72) 99 08/21/17 23:15 99 Mechanical Ventilator 40 08/21/17 23:05 99 40 08/21/17 23:00 74 08/21/17 20:17 98.8 52 14 98/68 (78) 99 08/21/17 20:17 40 08/21/17 20:17 99 Mechanical Ventilator 40 08/21/17 20:15 99 40 08/21/17 19:00 83 08/21/17 18:24 100 100 08/21/17 15:35 99 40 08/21/17 15:00 50 08/21/17 15:00 97.9 56 14 107/50 (69) 99 08/21/17 15:00 99 Mechanical Ventilator 40 08/21/17 15:00 40 08/21/17 13:40 98 40 08/21/17 12:30 85 98/60 08/21/17 12:30 83 96/52 08/21/17 12:29 93 98/60 08/21/17 11:00 98.0 98 14 108/60 (76) 98 08/21/17 11:00 40 08/21/17 11:00 96 Mechanical Ventilator 40 08/21/17 11:00 98 08/21/17 09:58 99 40 Labs: Laboratory Tests Test 08/22/17 04:00 White Blood Count 13.4 TH/MM3 (4.0-11.0) Red Blood Count 3.14 MIL/MM3 (4.50-5.90) Hemoglobin 10.1 GM/DL (13.0-17.0) Hematocrit 28.9 % (39.0-51.0) Mean Corpuscular Volume 92.1 FL (80.0-100.0) Mean Corpuscular Hemoglobin 32.3 PG (27.0-34.0) Mean Corpuscular Hemoglobin Concent 35.0 % (32.0-36.0) Red Cell Distribution Width 14.2 % (11.6-17.2) Platelet Count 140 TH/MM3 (150-450) Mean Platelet Volume 8.8 FL (7.0-11.0) Blood Urea Nitrogen 19 MG/DL (7-18) Creatinine 0.74 MG/DL (0.60-1.30) Random Glucose 240 MG/DL (74-106) Calcium Level 7.5 MG/DL (8.5-10.1) Sodium Level 137 MEQ/L (136-145) Potassium Level 3.8 MEQ/L (3.5-5.1) Chloride Level 101 MEQ/L (98-107) Carbon Dioxide Level 29.1 MEQ/L (21.0-32.0) Anion Gap 7 MEQ/L (5-15) Estimat Glomerular Filtration Rate 102 ML/MIN (>89) Result Diagram: 08/22/1739908/22/17399 Imaging: Last 24 hours Impressions Brain MRI 08/21/17 1427 Signed Impressions: Service Date/Time: Monday, August 21, 2017 17:35 - CONCLUSION: 1. No acute findings. Cortical volume loss. Abnormal hypertrophy around the dens. MRI cervical spine pending. Jarrell Little MD Cardiovascular: RRR Telemetry: NSR Pulmonary: CTA GI/: NABS, NT Incision: dry and intact CT: 90ml/24hrs, no air leak Plan: Critical care following and managing vent/tube feeds Continue chest tubes Wean/extubate Continue PO amiodarone - intermittent AFIB - will likely need anticoagulation Hold beta itzel Wean SYLVIA for MAP > 65 (1) BPH (benign prostatic hyperplasia) (2) S/P CABG x 3 Plan: on ASA , amiodarone , BB on hold for SBP<100 (3) CAD (coronary artery disease) (4) Diabetes mellitus Plan: weaned off insulin gtt, on sliding scale (5) PAD (peripheral artery disease) Plan: on ASA, resume Trental when possible (6) Angina pectoris (7) Syncopal episodes Plan: s/p stroke alert EEG no evidence of seizures, some encephalopathy CTA head neck neg Neuro following MRI Brain pending (8) Afib Plan: on amiodarone Jackie Rogel MD Aug 22, 2017 08:25
--- NOTE | 2017-08-22 10:04 | PD.CARD.PN ---
Subjective Subjective Remarks intubated, sedated Objective Medications Current Medications Medications (Trade) Dose Ordered Sig/Keren Route Start Time Stop Time Status Last Admin (NS Flush) 2 ml BID IV FLUSH 08/19/17 21:00 08/22/17 08:15 (NS Flush) 2 ml UNSCH PRN IV FLUSH 08/19/17 11:00 (Aspirin Chew) 81 mg DAILY PO 08/20/17 09:00 08/22/17 08:13 (Tylenol) 650 mg Q4H PRN PO 08/19/17 11:00 (Percocet 5-325 Mg) 1 tab Q3H PRN PO 08/19/17 11:00 08/20/17 06:18 (Zofran Inj) 4 mg Q6H PRN IV PUSH 08/19/17 11:00 08/20/17 08:26 (Apresoline Inj) 10 mg Q4H PRN IV PUSH 08/19/17 11:00 (Lopressor Inj) 2.5 mg Q1H PRN IV PUSH 08/19/17 11:00 (Duoneb Neb) 1 ampule Q2HR NEB PRN NEB 08/19/17 11:00 (Aricept) 5 mg HS PO 08/19/17 21:00 08/20/17 22:13 (Cosopt 2-0.5% Opth Soln) 1 drop BID EACH EYE 08/19/17 21:00 08/22/17 08:14 (Xalatan 0.005% Opth Soln) 1 drop HS EACH EYE 08/19/17 21:00 08/21/17 21:06 (Flomax) 0.4 mg HS PO 08/19/17 21:00 08/21/17 21:05 (Effexor Xr) 150 mg HS PO 08/19/17 21:00 08/19/17 20:10 (Lipitor) 80 mg DAILY PO 08/20/17 09:00 08/22/17 08:13 (Coreg) 3.125 mg BID PO 08/20/17 10:00 08/20/17 22:14 (Neurontin) 100 mg HS PO 08/20/17 21:00 08/20/17 22:13 (Colace) 100 mg BID PO 08/20/17 21:00 08/22/17 08:13 (Theragran M Tab) 1 tab DAILY PO 08/20/17 10:15 08/22/17 08:13 (Milk Of Magnesia Liq) 30 ml DAILY PO 08/20/17 10:30 08/22/17 08:13 (Dulcolax Supp) 10 mg UNSCH PRN RECTAL 08/20/17 08:45 (Miralax) 17 gm DAILY PO 08/21/17 09:00 08/22/17 08:14 (Senokot) 8.6 mg HS PO 08/20/17 21:00 08/21/17 21:05 (Fleets Enema (Adult)) 133 ml UNSCH PRN RECTAL 08/20/17 08:45 (D50w (Vial) Inj) 50 ml UNSCH PRN IV PUSH 08/20/17 08:45 (Glucagon Inj) 1 mg UNSCH PRN OTHER 08/20/17 08:45 (NovoLOG SUPPLEMENTAL SCALE) 1 ACHS SQ 08/21/17 12:00 08/22/17 08:15 (Peridex 0.12% Liq) 15 ml BID@08,20 MT 08/20/17 20:00 08/22/17 08:13 (Protonix Inj) 40 mg Q24H IV PUSH 08/21/17 06:00 08/22/17 05:57 Levetriacetam 750 mg/Sodium Chloride 107.5 ml @ 215 mls/hr Q12H IV 08/20/17 22:30 08/21/17 22:50 (Brethine Inj) 1 mg UNSCH PRN SQ 08/21/17 11:00 Dextrose/Sodium Chloride 1,000 ml @ 75 mls/hr [id number] IV 08/21/17 17:15 08/22/17 06:02 (Cordarone) 400 mg Q12HR PO 08/22/17 09:00 Vital Signs / I&O Vital Signs Date Time Temp Pulse Resp B/P (MAP) Pulse Ox O2 Delivery O2 Flow Rate FiO2 08/22/17 08:08 99 40 08/22/17 08:00 40 08/22/17 08:00 72 08/22/17 08:00 99 Mechanical Ventilator 40 08/22/17 08:00 40 08/22/17 04:53 40 08/22/17 03:36 99 40 08/22/17 03:15 99 Mechanical Ventilator 40 08/22/17 03:15 98.8 70 14 96/56 (69) 99 08/22/17 03:00 69 08/22/17 01:05 99 40 08/22/17 01:00 40 08/21/17 23:15 98.9 64 14 93/62 (72) 99 08/21/17 23:15 99 Mechanical Ventilator 40 08/21/17 23:05 99 40 08/21/17 23:00 74 08/21/17 20:17 98.8 52 14 98/68 (78) 99 08/21/17 20:17 40 08/21/17 20:17 99 Mechanical Ventilator 40 08/21/17 20:15 99 40 08/21/17 19:00 83 08/21/17 18:24 100 100 08/21/17 15:35 99 40 08/21/17 15:00 50 08/21/17 15:00 97.9 56 14 107/50 (69) 99 08/21/17 15:00 99 Mechanical Ventilator 40 08/21/17 15:00 40 08/21/17 13:40 98 40 08/21/17 12:30 85 98/60 08/21/17 12:30 83 96/52 08/21/17 12:29 93 98/60 08/21/17 11:00 98.0 98 14 108/60 (76) 98 08/21/17 11:00 40 08/21/17 11:00 96 Mechanical Ventilator 40 08/21/17 11:00 98 I/O 08/21/17 08/21/17 08/21/17 08/22/17 08/22/17 08/22/17 07:00 15:00 23:00 07:00 15:00 23:00 Intake Total 244.5 ml 1382 ml 323 ml 1540 ml Output Total 1365 ml 385 ml 565 ml Balance -1120.5 ml 1382 ml -62 ml 975 ml Intake Oral 0 ml IV Total 244.5 ml 1382 ml 73 ml 1077 ml Tube Feeding 213 ml Tube Irrigant 250 ml 250 ml Output Urine Total 525 ml 335 ml 525 ml Gastric Drainage Total 800 ml Chest Tube Drainage Total 40 ml 50 ml 40 ml # Bowel Movements 0 0 0 Physical Exam GENERAL: SKIN: Warm and dry. HEAD: Normocephalic. EYES: No scleral icterus. No injection or drainage. NECK: Supple, trachea midline. No JVD or lymphadenopathy. CARDIOVASCULAR: Regular rate and rhythm without murmurs, gallops, or rubs. RESPIRATORY: Breath sounds equal bilaterally. No accessory muscle use. GASTROINTESTINAL: Abdomen soft, non-tender, nondistended. MUSCULOSKELETAL: No cyanosis, or edema. BACK: Nontender without obvious deformity. No CVA tenderness. Laboratory Laboratory Tests Test 08/22/17 04:00 White Blood Count 13.4 TH/MM3 Red Blood Count 3.14 MIL/MM3 Hemoglobin 10.1 GM/DL Hematocrit 28.9 % Mean Corpuscular Volume 92.1 FL Mean Corpuscular Hemoglobin 32.3 PG Mean Corpuscular Hemoglobin Concent 35.0 % Red Cell Distribution Width 14.2 % Platelet Count 140 TH/MM3 Mean Platelet Volume 8.8 FL Blood Urea Nitrogen 19 MG/DL Creatinine 0.74 MG/DL Random Glucose 240 MG/DL Calcium Level 7.5 MG/DL Sodium Level 137 MEQ/L Potassium Level 3.8 MEQ/L Chloride Level 101 MEQ/L Carbon Dioxide Level 29.1 MEQ/L Anion Gap 7 MEQ/L Estimat Glomerular Filtration Rate 102 ML/MIN Imaging Last 24 hours Impressions Brain MRI 08/21/17 1427 Signed Impressions: Service Date/Time: Monday, August 21, 2017 17:35 - CONCLUSION: 1. No acute findings. Cortical volume loss. Abnormal hypertrophy around the dens. MRI cervical spine pending. Jarrell Little MD Assessment and Plan Problem List: (1) BPH (benign prostatic hyperplasia) ICD Codes: N40.0 - Benign prostatic hyperplasia without lower urinary tract symptoms (2) S/P CABG x 3 ICD Codes: Z95.1 - Presence of aortocoronary bypass graft (3) CAD (coronary artery disease) ICD Codes: I25.10 - Atherosclerotic heart disease of [place] coronary artery without angina pectoris (4) Diabetes mellitus ICD Codes: E11.9 - Type 2 diabetes mellitus without complications (5) PAD (peripheral artery disease) ICD Codes: I73.9 - Peripheral vascular disease, unspecified (6) Angina pectoris ICD Codes: I20.9 - Angina pectoris, unspecified (7) Syncopal episodes ICD Codes: R55 - Syncope and collapse (8) Afib ICD Codes: I48.91 - Unspecified atrial fibrillation Assessment and Plan 1.) pod#3 cabg - wean vent as tolerated, start statin, continue aspirin 81 mg qd 2.) PAF - on amio, chads score = 3, ac when cleared by ct surgery 3.) Encephalopathy - neuro following, mri with no acute findings Scott Aviles MD Aug 22, 2017 10:04
--- NOTE | 2017-08-22 10:34 | HHI.CCPN ---
Subjective Remarks/Hospital Course Hospital Course: This is an 82-year-old male. Date of admission 08/19/2017. Date of consultation 08/20/2017. Past medical history includes hypertension, dyslipidemia, peripheral vascular disease, dementia, atrial fibrillation, depression. BPH, gastroesophageal reflux disease. One week ago, patient had an elective catheterization with Dr. Aviles revealed a minimal luminal area of approximately 4 mm squared by IVUS of the distal left main, moderate to severe LAD fibrocalcific disease. Yesterday the patient underwent a CABG 3 CAIN to LAD, SVG to OM1 and PDA with EVH per Dr. Rogel. One pleural/ mediastinal chest tube placed. Sanguinous output noted. Today, patient was ambulatory in the hallway with acutely became unresponsive with a leftward gaze at approximately 955. This patient was placed in a chair and moved directly to his room in 446. Patient was emergently intubated for airway protection using Midazolam and rocuronium. Stroke alert was called. Stat CT brain/CTA head and neck revealed no acute timings. Not a candidate for TPA due to recent CABG. He currently undergoing. Patient is currently hemodynamically stable Subjective: 08/21: remains with significant neuro deficits. on my evaluation, he has no movement of upper and lower extremities. however, with stimulation, will open eyes, tracks, and even appears to blink eyes to command and stick out tongue to command. grimaces to pain in all 4 extremities which would suggest sensation is grossly intact. on low dose phenylephrine to maintain cerebral perfusion pressure. 08/22: awake and following commands. extremity strength improving. MRI brain normal. MRI c-spine with high stenosis around the dens, but without cord edema or increased cord signal. remains on low-dose phenylephrine to maintain cerebral perfusion pressure. Objective Vital Signs Date Time Temp Pulse Resp B/P (MAP) Pulse Ox O2 Delivery O2 Flow Rate FiO2 08/22/17 08:08 99 40 08/22/17 08:00 72 08/22/17 08:00 Mechanical Ventilator 08/22/17 03:15 98.8 14 96/56 (69) 08/20/17 09:21 2.00 Intake and Output 08/22/17 08/22/17 08/23/17 08:00 16:00 00:00 Intake Total 1456 ml Output Total 565 ml Balance 891 ml Result Diagram: 08/22/17 0400 08/22/17 0400 Imaging Last Impressions Chest X-Ray 08/20/17 0500 Signed Impressions: Service Date/Time: July 04:11 - CONCLUSION: 1. Left-sided chest tube with questionable small lateral pneumothorax. Enrique Echeverria MD Head CTA 08/20/17 0000 Signed Impressions: Service Date/Time: , August 20, 2017 10:49 - CONCLUSION: 1. Negative CTA examination of the head. Specifically, no evidence for large vessel occlusion. Dragan Oreilly MD Head CT 08/20/17 0000 Signed Impressions: Service Date/Time: , August 20, 2017 10:35 - CONCLUSION: 1. Senescent changes. 2. No acute intracranial abnormality. 3. Left maxillar sinus disease. Dragan Oreilly MD Objective Remarks GENERAL: 82-year-old male, lying in bed, intubated. SKIN: Warm and dry. HEAD: Atraumatic. Normocephalic. EYES: Pupils equal and round about 1-2 mm bilaterally and sluggish. No scleral icterus. No injection or drainage. ENT: No nasal bleeding or discharge. Mucous membranes pink and moist. NECK: Trachea midline. No JVD. Right IJ Cordis clean dry and intact CARDIOVASCULAR: normal sinus by tele. regular rate and rhythm. RESPIRATORY: No accessory muscle use. Clear to auscultation. Breath sounds equal bilaterally. Mediastinal/left chest tube intact. GASTROINTESTINAL: Abdomen soft, non-tender, nondistended. MUSCULOSKELETAL: Extremities without significant peripheral edema. NEUROLOGICAL: now awake, RASS -2. follows commands. JHON 4/5 in all 4 extremities , but significantly improved from yesterday. A/P Assessment and Plan Assessment: 82yM POD 3 s/p CABG, course complicated by acute-onset weakness and encephalopathy. MRI c-spine shows stenosis around the level of the dens, though no cord edema or increased signal. will ask neurosurgery to weigh in on whether or not repeat laryngoscopy could have caused enough functional stenosis to limit mobility at the neck and cause very high cervical lesion. Neuro/Psych: Acute encephalopathy Possible acute CVA Migraine headache Glaucoma History of vertigo Dementia disorder NOS History anterior spinal fusion History L3/4 level laminectomy Peripheral neuropathy High grade cervical stensosis at the dens. currently off sedation. Goal of RASS 0 Daily sedation vacation 10/[address] brain revealed no acute intracranial findings. Maxillary sinus disease. 10/[address] angiogram brain revealed no large vessel disease. Carotid results radial towards left carotid. Moderate disease but not flow-limiting.. Specifically no basilar artery disease. Currently on donepezil 5 mg daily for dementia. Continue Continued dorzol/timolol 2/0.5 centimeters one drop twice a day and latanoprost 0.005% 1 drop each eye at night for glaucoma Continue gabapentin [address] Lawrence neurology consulted EEG 08/20: severe slowing, encephalopathy EEG 08/21: repeat, moderate slowing. MRI brain and c-spine 10/21: high grade cervical stenosis at the dens. consult neurosurgery. CV: Postop day 3 CABG 3 - CAIN to LAD, SVG to OM1/PDA with EVH by Dr. Rollins Coronary artery disease Hypertension Dyslipidemia Claudication/peripheral vascular disease Continue amiodarone 200 mg by mouth twice a day hold carvedilol 3.125 mg twice a day, hold lisinopril 5 mg daily for hypertension Currently on atorvastatin 80 mg by mouth daily. On rosuvastatin 40 mg daily at home. For dyslipidemia Continue aspirin 81 mg daily Currently holding pentoxifylline 400 mg daily for claudication phenylephrine as needed for maintenance of cerebral perfusion. Resp: Acute hypoxic and hypercarbic respiratory failure History of JHON does not use CPAP Ventilator bundle No SBT until mental status improves. Albuterol/ipratropium aerosols every 6 hours while awake Follow-up chest x-ray Mediastinal/left chest tube to -20 cm H2O. hold SBT and extubation until neurosurgery eval. GI: Gastroesophageal reflux disease continue TF. Pantoprazole for GI prophylaxis Docusate sodium for bowel regimen : BPH History of nephrolithiasis Continue tamsulosin 0.4 mg by mouth daily. Maintain Chris catheter Endo: Diabetes mellitus Currently holding insulin glargine 35 units at night sitagliptin/metformin 20/ 500 one tablet being held as well Sliding-scale insulin per CT surgery protocol Renal: Creatinine currently within normal limits Monitor urine output Accurate I's and O's Heme: Leukocytosis Normocytic anemia Monitor CBC daily. Follow trends. ID: Postoperative antibiotics with cefazolin 1 g IV every 8 hours [address] surgery Monitor for infection FEN: Replace electrolytes as clinically indicated MSK: Osteoarthritis PT evaluate and treat Access - Right IJ Cortis/dual-lumen day #4- continue Prophylaxis - GI - pantoprazole - DVT - BHASKAR hose left lower extremity/pharmacological prophylaxis when okay with CT surgery Jerome Bales MD Aug 22, 2017 10:34
[2017-08-22] MEDS: levETIRAcetam INJ 750 MG in SODIUM CHLORIDE 0.9% INJ 100 ML IV SCH ×2 (10:45→22:20)
[2017-08-22] MEDS ORDERED: PHENYLEPHRINE HCL 80 MG/D5W 492 ML ADMIX IV PRN ×2 (14:00)
[2017-08-22] MEDS ORDERED: TERBUTALINE INJ 1 MG/ML AMP SQ PRN (14:00)
--- NOTE | 2017-08-22 17:46 | PD.CONS ---
History of Present Illness Service Neurosurgery Consult Requested By Massotherapist-Dr. Bales Reason for Consult Quadriparesis. Cervical stenosis Primary Care Physician Non-Staff Diagnoses: History of Present Illness Mr. Lyman is an 82-year-old male with a history of coronary artery disease, peripheral vascular disease, atrial fibrillation, hypertension, hyperlipidemia who recently underwent a CABG on 08/19/17. His immediate postoperative course was uneventful. However on 08/20/17 he was walking in the [place] and became acutely unresponsive with left gaze deviation. He was intubated and a stroke alert was called. A CT scan of the head as well as a CT angiogram at that time did not reveal any significant acute abnormalities. TPA was not administered. His records indicate that on 08/21/17 he remained with absent limits of the upper and lower extremities but was opening his eyes and tracking and response to stimulation and sticking out his tongue to command. An MRI of the brain and cervical spine was accomplished which revealed cervical stenosis without cord edema. Discussion with intensive as earlier today he indicated that his neurologic function has been improving with some movement of the extremities. Review of Systems Review of systems cannot be obtained from the patient at this time due to intubation. Past Family Social History Allergies: Coded Allergies: No Known Allergies (Verified , 08/19/17) Past Medical History Coronary artery disease Peripheral vascular disease Hypertension Atrial fibrillation dyslipidemia Diabetes GERD BPH Depression, anxiety Dementia Past Surgical History CABG 08/19/17 Appendectomy Tonsillectomy Hernia repair Bilateral knee arthroplasty ACDF Lumbar laminectomy Reported Medications Reported Meds & Active Scripts Active Reported Melatonin 5 Mg Tab 3 Mg PO HS PRN Dtyrifemdi-Fmxlgvnoakodv-Ofboapab 50-325-40 Mg Cap 1 Tab PO DAILY PRN Do not exceed 6 capsules/day. Donepezil 5 Mg Tab 5 Mg PO HS Deplin (d-Jjkwzwhnkibv-Eigpg) 15 Mg Cap 1 Cap PO DAILY Zolpidem (Zolpidem Tartrate) 10 Mg Tab 10 Mg PO HS PRN Venlafaxine ER 24 HR (Venlafaxine HCl) 150 Mg Tab 150 Mg PO HS Methocarbamol 500 Mg Tab 500 Mg PO BID PRN Lantus Inj (Insulin Glargine) 1,000 Unit/10 Ml Vial 36 Units SQ HS Dorzolamide-Timolol Opth Drops 22.3-6.8 Mg/Ml Soln 1 Drop EACH EYE BID Carvedilol 6.25 Mg Tab 3.125 Mg PO BID Vitamin D3 (Cholecalciferol) 1,000 Unit Tab 1,000 Units PO DAILY Vitamin B-12 (Cyanocobalamin) 500 Mcg Tab 500 Mcg PO DAILY Tamsulosin (Tamsulosin HCl) 0.4 Mg Cap 0.4 Mg PO HS Pentoxifylline ER (Pentoxifylline) 400 Mg Tab 400 Mg PO DAILY Omeprazole 20 Mg Tab 20 Mg PO BIDAC Magnesium Oxide 500 Mg Tab 500 Mg PO DAILY Lisinopril 10 Mg Tab 5 Mg PO DAILY Latanoprost Opth Drops (Latanoprost) 0.005% Drops 1 Drop EACH EYE HS Refrigerate until opened. Janumet Xr (Sitagliptin-Metformin ER) 50-500 Mg Tab 1 Tab PO DAILY Gabapentin 100 Mg Cap 100 Mg PO HS [place]-3 Fish Oil/Vitamin (Fish Oil-Cholecalciferol) 1,000-1,000 Mg Cap 1 Cap PO BID Crestor (Rosuvastatin Calcium) 40 Mg Tab 40 Mg PO DAILY Calcium/Vitamin D (Calcium Carbonate-Vitamin D) 600-400 Mg-Unit Tab 1 Tab PO BID Aspirin 81 Mg Chew 81 Mg CHEW BID Alpha Lipoic Acid 600 Mg Cap 600 Mg PO BID Family History Cardiac disease in the family including [place] in his mother, father, sister Social History 30-dnam-flzi history of smoking. No cigarettes for 20 years. Occasional alcohol use Physical Exam Vital Signs Vital Signs Date Time Temp Pulse Resp B/P (MAP) Pulse Ox O2 Delivery O2 Flow Rate FiO2 08/22/17 15:00 99.4 73 14 116/3 (40) 99 08/22/17 15:00 73 08/22/17 15:00 40 08/22/17 15:00 99 Mechanical Ventilator 40 08/22/17 14:05 40 08/22/17 14:00 76 97/54 08/22/17 11:00 98.8 70 14 104/56 (72) 99 08/22/17 11:00 40 08/22/17 11:00 70 08/22/17 11:00 99 Mechanical Ventilator 40 08/22/17 08:08 99 40 08/22/17 08:00 40 08/22/17 08:00 98.0 74 14 97/54 (68) 99 08/22/17 08:00 72 08/22/17 08:00 99 Mechanical Ventilator 40 08/22/17 08:00 40 08/22/17 04:53 40 08/22/17 03:36 99 40 08/22/17 03:15 99 Mechanical Ventilator 40 08/22/17 03:15 98.8 70 14 96/56 (69) 99 08/22/17 03:00 69 08/22/17 01:05 99 40 08/22/17 01:00 40 08/21/17 23:15 98.9 64 14 93/62 (72) 99 08/21/17 23:15 99 Mechanical Ventilator 40 08/21/17 23:05 99 40 08/21/17 23:00 74 08/21/17 20:17 98.8 52 14 98/68 (78) 99 08/21/17 20:17 40 08/21/17 20:17 99 Mechanical Ventilator 40 08/21/17 20:15 99 40 08/21/17 19:00 83 08/21/17 18:24 100 100 Physical Exam GENERAL: Normally developed elderly gentleman, intubated SKIN: No abrasions, contusion, rash noted. Skin warm and dry. HEAD: Atraumatic. Normocephalic. No temporal or scalp tenderness. EYES: Sclerae are clear and nonicteric ENT: No facial edema or ecchymosis. No periorbital edema. NECK: Trachea midline. No cervical spine tenderness. CARDIOVASCULAR: Regular rate and rhythm without murmurs, gallops, or rubs. RESPIRATORY: Clear to auscultation. Breath sounds equal bilaterally. No wheezes , rales, or rhonchi. GASTROINTESTINAL: Abdomen soft, non-tender, nondistended. No hepato-splenomegaly , or palpable masses. No guarding. MUSCULOSKELETAL: Extremities without cyanosis, or edema. No joint tenderness, or edema noted. No calf tenderness. Dorsalis pedis pulses 2+ bilateral NEUROLOGICAL: Awake and alert He nods his head appropriately and response to yes/no questions No agitation. Memory, judgment and insight cannot be adequately determined due to intubation Pupils are equal and reactive to accommodation. Extra-ocular movements, visual zamora to confrontation, facial sensorimotor, tongue, palate, sternocleidomastoid testing, hearing to finger rub testing, and bilateral shoulder shrug are all intact. Sensation is intact to light touch in all extremities Strength is mostly 2/5 right and 1-to/5 left biceps triceps and grasp with 1-to/ 5 right and trace left hand intrinsics Lower extremity strength is mostly 3/5 right and 2/5 left quadriceps and hamstrings and iliopsoas with 3-4/5 bilateral gastrocsoleus and tibialis anterior Lj's absent bilaterally No ankle clonus Plantar responses absent bilateral Fine motor movements impaired in the upper extremities due to weakness Laboratory Laboratory Tests Test 08/22/17 04:00 White Blood Count 13.4 Red Blood Count 3.14 Hemoglobin 10.1 Hematocrit 28.9 Mean Corpuscular Volume 92.1 Mean Corpuscular Hemoglobin 32.3 Mean Corpuscular Hemoglobin Concent 35.0 Red Cell Distribution Width 14.2 Platelet Count 140 Mean Platelet Volume 8.8 Blood Urea Nitrogen 19 Creatinine 0.74 Random Glucose 240 Calcium Level 7.5 Sodium Level 137 Potassium Level 3.8 Chloride Level 101 Carbon Dioxide Level 29.1 Anion Gap 7 Estimat Glomerular Filtration Rate 102 Result Diagram: 08/22/17 0400 08/22/17 0400 Imaging 08/21/17 MRI of the brain and cervical spine images have been reviewed by the undersigned. No significant acute abnormalities on brain MRI. The cervical MRI reveals arthritic changes at the C1-2 level with partial erosion of the dens and inflammatory pannus formation posterior to the dens. This causes moderate stenosis at the cervical occipital region no significant cord compression. There may be some disruption of the occipital atlantal junction. There is moderate stenosis at the C3-4 level but no definite significant cord compression. A thin layer of CSF was noted around the cord. No definite signal intensity changes. There is a previous C6-7 fusion. There is a dense anterior osteophyte extending from C3 through C7 with what appears to be solid fusion at C4 through 7 and possibly at C3 4. Brain MRI 08/21/17 1427 Signed Impressions: Service Date/Time: Monday, August 21, 2017 17:35 - CONCLUSION: 1. No acute findings. Cortical volume loss. Abnormal hypertrophy around the dens. MRI cervical spine pending. Jarrell Little MD Chest X-Ray 08/21/17 0600 Signed Impressions: Service Date/Time: Monday, August 21, 2017 04:40 - CONCLUSION: No significant change. Yakov Calderón MD Cervical Spine MRI 08/21/17 0000 Signed Impressions: Service Date/Time: Monday, August 21, 2017 17:35 - CONCLUSION: 1. Abnormal hypertrophic change around the dens resulting in a moderate lateral recess stenosis on the right at the craniocervical junction with encroachment on the right hemicord and some cord deflection. No cord edema. 2. At C3-4 there is mild to moderate canal stenosis effacing the thecal sac. No cord edema. 3. Previous fusion at C6-7. No acute fracture. Jarrell Little MD Neck CTA 08/20/17 Signed Impressions: Service Date/Time: July 10:49 - CONCLUSION: 1. There is moderate calcified atherosclerotic plaquing at both carotid bifurcations. 2. No significant focal or high-grade stenosis is demonstrated. 3. There is tortuosity of the left internal carotid artery. Kedar Smith MD Head CTA 08/20/17 Signed Impressions: Service Date/Time: July 10:49 - CONCLUSION: 1. Negative CTA examination of the head. Specifically, no evidence for large vessel occlusion. Dragan Oreilly MD Head CT 08/20/17 Signed Impressions: Service Date/Time: July 10:35 - CONCLUSION: 1. Senescent changes. 2. No acute intracranial abnormality. 3. Left maxillar sinus disease. Dragan Oreilly MD Assessment and Plan Assessment and Plan Impression: 1. Acute altered mental status accompanied by initial quadriplegia as well as likely brainstem and midbrain ischemic changes on exam. No focal abnormality on brain MRI. 2. Cervical stenosis primarily C3 4 level. There is a question of a spontaneous fusion at the C3 4 level, with a more definite fusion at the C5 4-7 level. Possible ankylosing spondylitis. 3. 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 Question of C1-2 instability although there appears to be only partial erosion of the dens without definite dens fracture. It is possible that with extension of the neck for intubation he had some temporary cord compression, although there is no evidence of cord edema or contusion. He really does not have much in the way of cord compression at the cervical occipital junction, and the C3 4 level may be relatively stable, so it seems more likely that he had overall global ischemic injury without definite brain or cord infarction. Recommendations: Continue in [place] cervical collar for stability when out of bed Physical therapy for transfers and ambulation when medically stable and extubated Once he is more stable, flexion and extension cervical spine images under fluoroscopy will be obtained to determine cervical stability. He otherwise does not have significant ongoing cord compression on his MRI at this time. Jerrell Rodney MD Aug 22, 2017 17:46
[2017-08-22] MEDS: GABAPENTIN 100 MG CAP PO SCH (21:00)
[2017-08-22] MEDS: TAMSULOSIN HCL 0.4 MG CAP PO SCH (21:00)
[2017-08-22] MEDS: VENLAFAXINE HCL XR 75 MG CAP PO SCH (21:00)
[2017-08-22] MEDS: SENNOSIDES 8.6 MG TAB PO SCH (21:00)
[2017-08-22] MEDS: LATANOPROST 0.005% OPHT SOLN 2.5 ML BTL EACH EYE SCH (21:00)
[2017-08-22] MEDS: DONEPEZIL HCL 5 MG TAB PO SCH (21:00)
[2017-08-23] VITALS (12 sets, daily range): BP systolic 90–113; BP diastolic 45–60; PULSE 61–73; RESP 15–18; TEMP 97.9–100.1; O2SAT 92–99
[2017-08-23 05:18] LABS: HEMATOCRIT 27.2 % (39.0-51.0); MEAN CORPUSCULAR HEMOGLOBIN 32.5 PG (27.0-34.0); MEAN CORPUSCULAR HGB CONC 35.3 % (32.0-36.0); PLATELET COUNT 156 TH/MM3 (150-450); RED BLOOD COUNT 2.96 MIL/MM3 (4.50-5.90); RED CELL DISTRIBUTION WIDTH 13.9 % (11.6-17.2); REVIEW FLAG FINAL; WHITE BLOOD COUNT 9.8 TH/MM3 (4.0-11.0)
[2017-08-23] MEDS: PANTOPRAZOLE SODIUM 40 MG VIAL IV PUSH SCH (06:00)
[2017-08-23 06:08] LABS: BICARBONATE 28.9 MEQ/L (21.0-32.0); POTASSIUM 3.7 MEQ/L (3.5-5.1)
[2017-08-23 07:06] LABS: CALCIUM-PROTEIN CORRECTED 8.3 MG/DL (8.5-10.1)
[2017-08-23] MEDS: CHLORHEXIDINE 0.12% (ORAL KIT) 15 ML CUP MT SCH ×2 (07:55→20:00)
[2017-08-23] MEDS: INSULIN ASPART SUPPLEMENTAL SCALE SQ SCH ×4 (08:00→21:00)
[2017-08-23] MEDS: AMIODARONE 200 MG TAB PO SCH ×2 (08:18→20:24)
[2017-08-23] MEDS: MAGNESIUM HYDROXIDE SUSP 30 ML CUP PO SCH (08:18)
[2017-08-23] MEDS: POLYETHYLENE GLYCOL 17 GM PKG PO SCH (08:19)
[2017-08-23] MEDS: ASPIRIN 81 MG CHEW TAB PO SCH (08:19)
[2017-08-23] MEDS: CARVEDILOL 3.125 MG TAB PO SCH ×3 (08:19→20:24)
[2017-08-23] MEDS: DOCUSATE SODIUM 100 MG CAP PO SCH ×2 (08:19→20:25)
[2017-08-23] MEDS: MULTIVITAMINS/MINERALS THERAPEUTIC TAB PO SCH (08:19)
[2017-08-23] MEDS: ATORVASTATIN 80 MG TAB PO SCH (08:19)
[2017-08-23 08:39] LABS: BLOOD GAS BASE EXCESS 4.6 mmol/L (-2-2); BLOOD GAS CARBOXYHEMOGLOBIN 0.8 % (0-4); BLOOD GAS HCO3 29 mmol/L (22-26); BLOOD GAS METHEMOGLOBIN 1.2 % (0-2); BLOOD GAS O2 HGB SATURATION 97 % (90-100); BLOOD GAS OXYGEN CONTENT 19.8 Vol % (12.0-20.0); BLOOD GAS PCO2 44 mmHg (38-42); BLOOD GAS PO2 129 mmHg (61-120); BLOOD GAS TOTAL HGB 14.5 G/DL (12.0-16.0); CRITICAL VALUE NO; DRAW SITE LT RADIAL; FIO2 40 %; NUMBER OF ARTERIAL PUNCTURES 1; OXYGEN DEVICE VENTILATOR; STAT YES; TEMP CORR TO 98.6; VENT SETTINGS A/C14/500/PEEP5
[2017-08-23] MEDS: SODIUM CHLORIDE 0.9% FLUSH 10 ML FLUSH IV FLUSH SCH ×2 (09:00→20:25)
[2017-08-23] MEDS: DEXT 5%-NACL 0.45% 1000 ML INJ 1,000 ML IV SCH ×2 (09:15→22:35)
--- NOTE | 2017-08-23 09:18 | PD.CAR.PN ---
CVT Progress Note CVT: POD #: 4 Subjective/Hospital Course: 82/ male hx of recent chest pain , unstable angina, + stress / underwent heart cath multi vessel disease EF 50% admitted electively for surgery PMH: CAD, DM, PAD, vertigo , BPH, glaucoma surgery :08/19 CABG x 3 CAIN to LAD - very poor SVG to OM1 - fair SVG to PDA - fair EVH 08/20 pt did well this am alert and oriented , extubated after surgery , did c/o of nausea and lightheadedness this am after getting up from chair to bed was called later in am 9:55 am 11/27 , patient was ambulatory in the hallway with acutely became unresponsive with a leftward gaze at approximately 955. This patient was placed in a chair and moved directly to his room in 446. Patient was emergently intubated for airway protection using Midazolan and rocuronium. Stroke alert was called. Stat CT brain/CTA head and neck revealed no acute timings. Not a candidate for TPA due to recent CABG. He currently undergoing. Patient is currently hemodynamically stable as the course of day pt more awake, opens eyes and attempts to track, not on any sedation, spoke in depth with son remains intubated, eval for more alertness in am , appreciate Neuro and [facility] chest tubes remain in place 08/21 pt placed on keppra and propofol last pm, per nursing staff, pt had jerky movements to left side of face, left arm and leg despite EEG showing no evidence of seizure. BP labile while on propofol, fluid bolus given CCM following , chest tube left in place while pt on vent pt remains on vent not opening eyes, or following commands MRI Brain pending 08/22/17 Improving. Following commands, weaning from ventilator tube feeds started 08/23/17 alert, oriented. Following commands appropriately c/o lower abdominal pain Objective: Vital Signs Date Time Temp Pulse Resp B/P (MAP) Pulse Ox O2 Delivery O2 Flow Rate FiO2 08/23/17 08:52 98 Nasal Cannula 4 08/23/17 08:24 Nasal Cannula 40 08/23/17 08:24 98 40 08/23/17 08:17 99 40 08/23/17 08:00 40 08/23/17 07:00 99 Mechanical Ventilator 40 08/23/17 07:00 100.1 64 15 113/58 (76) 99 08/23/17 04:20 98 40 08/23/17 04:00 40 08/23/17 03:00 63 08/23/17 03:00 99 Mechanical Ventilator 40 08/23/17 03:00 98.9 63 15 105/53 (70) 99 08/23/17 01:56 94 40 08/23/17 00:00 40 08/22/17 23:00 99.2 72 14 96/53 (67) 94 08/22/17 23:00 94 Mechanical Ventilator 40 08/22/17 23:00 72 08/22/17 22:54 95 40 08/22/17 20:46 95 40 08/22/17 20:00 40 08/22/17 19:00 75 08/22/17 19:00 95 Mechanical Ventilator 40 08/22/17 19:00 98.9 73 14 107/62 (77) 95 08/22/17 18:15 95 40 08/22/17 18:00 40 08/22/17 15:00 99.4 73 14 116/3 (40) 99 08/22/17 15:00 73 08/22/17 15:00 40 08/22/17 15:00 99 Mechanical Ventilator 40 08/22/17 14:05 40 08/22/17 14:00 76 97/54 08/22/17 11:00 98.8 70 14 104/56 (72) 99 08/22/17 11:00 40 08/22/17 11:00 70 08/22/17 11:00 99 Mechanical Ventilator 40 Labs: Laboratory Tests Test 08/23/17 04:20 08/23/17 08:29 08/23/17 08:30 White Blood Count 9.8 TH/MM3 (4.0-11.0) Red Blood Count 2.96 MIL/MM3 (4.50-5.90) Hemoglobin 9.6 GM/DL (13.0-17.0) Hematocrit 27.2 % (39.0-51.0) Mean Corpuscular Volume 92.0 FL (80.0-100.0) Mean Corpuscular Hemoglobin 32.5 PG (27.0-34.0) Mean Corpuscular Hemoglobin Concent 35.3 % (32.0-36.0) Red Cell Distribution Width 13.9 % (11.6-17.2) Platelet Count 156 TH/MM3 (150-450) Mean Platelet Volume 8.7 FL (7.0-11.0) Blood Urea Nitrogen 12 MG/DL (7-18) Creatinine 0.72 MG/DL (0.60-1.30) Random Glucose 250 MG/DL (74-106) Total Protein 5.0 GM/DL (6.4-8.2) Calcium Level 7.2 MG/DL (8.5-10.1) Sodium Level 138 MEQ/L (136-145) Potassium Level 3.7 MEQ/L (3.5-5.1) Chloride Level 102 MEQ/L (98-107) Carbon Dioxide Level 28.9 MEQ/L (21.0-32.0) Anion Gap 7 MEQ/L (5-15) Estimat Glomerular Filtration Rate 105 ML/MIN (>89) Protein Corrected Calcium 8.3 MG/DL (8.5-10.1) Blood Gas Puncture Site LT RADIAL Blood Gas Patient Temperature 98.6 Blood Gas HCO3 29 mmol/L (22-26) Blood Gas Base Excess 4.6 mmol/L (-2-2) Blood Gas Oxygen Saturation 97 % (90-100) Arterial Blood pH 7.43 (7.380-7.420) Arterial Blood Partial Pressure CO2 44 mmHg (38-42) Arterial Blood Partial Pressure O2 129 mmHg (61-120) Arterial Blood Oxygen Content 19.8 Vol % (12.0-20.0) Arterial Blood Carboxyhemoglobin 0.8 % (0-4) Arterial Blood Methemoglobin 1.2 % (0-2) Blood Gas Hemoglobin 14.5 G/DL (12.0-16.0) Oxygen Delivery Device VENTILATOR Blood Gas Ventilator Setting A/C14/500/PEEP5 Blood Gas Inspired Oxygen 40 % Lactic Acid Level 1.3 mmol/L (0.4-2.0) Result Diagram: 08/23/1741908/23/17419 Cardiovascular: RRR Telemetry: NSR Pulmonary: Few crackles bilat GI/: Decreased BS, no guarding, mild RLQ tenderness Incision: dry and intact CT: 100ml/12 hrs Plan: Extubate Clear liquids Up to chair D/C chest tubes Wean SYLVIA off (1) BPH (benign prostatic hyperplasia) (2) S/P CABG x 3 Plan: on ASA , amiodarone , BB on hold for SBP<100 (3) CAD (coronary artery disease) (4) Diabetes mellitus Plan: weaned off insulin gtt, on sliding scale (5) PAD (peripheral artery disease) Plan: on ASA, resume Trental when possible (6) Angina pectoris (7) Syncopal episodes Plan: s/p stroke alert EEG no evidence of seizures, some encephalopathy CTA head neck neg Neuro following MRI Brain pending (8) Afib Plan: on amiodarone Jackie Rogel MD Aug 23, 2017 09:18
[2017-08-23] MEDS: DORZOLAMIDE/TIMOLOL OPTH SOLN 10 ML BTL EACH EYE SCH ×2 (09:23→21:00)
[2017-08-23] MEDS: levETIRAcetam INJ 750 MG in SODIUM CHLORIDE 0.9% INJ 100 ML IV SCH ×2 (10:00→22:30)
--- NOTE | 2017-08-23 11:37 | PD.CARD.PN ---
Subjective Subjective Remarks extubated, o x 2.5 Objective Medications Current Medications Medications (Trade) Dose Ordered Sig/Keren Route Start Time Stop Time Status Last Admin (NS Flush) 2 ml BID IV FLUSH 08/19/17 21:00 08/22/17 21:00 (NS Flush) 2 ml UNSCH PRN IV FLUSH 08/19/17 11:00 (Aspirin Chew) 81 mg DAILY PO 08/20/17 09:00 08/23/17 08:19 (Tylenol) 650 mg Q4H PRN PO 08/19/17 11:00 (Percocet 5-325 Mg) 1 tab Q3H PRN PO 08/19/17 11:00 08/20/17 06:18 (Zofran Inj) 4 mg Q6H PRN IV PUSH 08/19/17 11:00 08/20/17 08:26 (Apresoline Inj) 10 mg Q4H PRN IV PUSH 08/19/17 11:00 (Lopressor Inj) 2.5 mg Q1H PRN IV PUSH 08/19/17 11:00 (Duoneb Neb) 1 ampule Q2HR NEB PRN NEB 08/19/17 11:00 (Aricept) 5 mg HS PO 08/19/17 21:00 08/22/17 21:00 (Cosopt 2-0.5% Opth Soln) 1 drop BID EACH EYE 08/19/17 21:00 08/23/17 09:23 (Xalatan 0.005% Opth Soln) 1 drop HS EACH EYE 08/19/17 21:00 08/22/17 21:00 (Flomax) 0.4 mg HS PO 08/19/17 21:00 08/22/17 21:00 (Effexor Xr) 150 mg HS PO 08/19/17 21:00 08/22/17 21:00 (Lipitor) 80 mg DAILY PO 08/20/17 09:00 08/23/17 08:19 (Coreg) 3.125 mg BID PO 08/20/17 10:00 08/22/17 21:00 (Neurontin) 100 mg HS PO 08/20/17 21:00 08/22/17 21:00 (Colace) 100 mg BID PO 08/20/17 21:00 08/23/17 08:19 (Theragran M Tab) 1 tab DAILY PO 08/20/17 10:15 08/23/17 08:19 (Milk Of Magnesia Liq) 30 ml DAILY PO 08/20/17 10:30 08/23/17 08:18 (Dulcolax Supp) 10 mg UNSCH PRN RECTAL 08/20/17 08:45 (Miralax) 17 gm DAILY PO 08/21/17 09:00 08/23/17 08:19 (Senokot) 8.6 mg HS PO 08/20/17 21:00 08/22/17 21:00 (Fleets Enema (Adult)) 133 ml UNSCH PRN RECTAL 08/20/17 08:45 (D50w (Vial) Inj) 50 ml UNSCH PRN IV PUSH 08/20/17 08:45 (Glucagon Inj) 1 mg UNSCH PRN OTHER 08/20/17 08:45 (NovoLOG SUPPLEMENTAL SCALE) 1 ACHS SQ 08/21/17 12:00 08/23/17 08:00 (Peridex 0.12% Liq) 15 ml BID@08,20 MT 08/20/17 20:00 08/23/17 07:55 (Protonix Inj) 40 mg Q24H IV PUSH 08/21/17 06:00 08/23/17 06:00 Levetriacetam 750 mg/Sodium Chloride 107.5 ml @ 215 mls/hr Q12H IV 08/20/17 22:30 08/23/17 10:00 Dextrose/Sodium Chloride 1,000 ml @ 75 mls/hr [id number] IV 08/21/17 17:15 08/22/17 06:02 (Cordarone) 400 mg Q12HR PO 08/22/17 09:00 08/23/17 08:18 Phenylephrine HCl 80 mg/Dextrose 500 ml @ 15 mls/hr TITRATE PRN IV 08/22/17 14:00 08/22/17 14:00 (Brethine Inj) 1 mg UNSCH PRN SQ 08/22/17 14:00 Vital Signs / I&O Vital Signs Date Time Temp Pulse Resp B/P (MAP) Pulse Ox O2 Delivery O2 Flow Rate FiO2 08/23/17 11:00 94 Nasal Cannula 4.00 08/23/17 08:52 98 Nasal Cannula 4.00 08/23/17 08:52 98 Nasal Cannula 4 08/23/17 08:24 Nasal Cannula 40 08/23/17 08:24 98 40 08/23/17 08:17 99 40 08/23/17 08:00 40 08/23/17 07:00 99 Mechanical Ventilator 40 08/23/17 07:00 100.1 64 15 113/58 (76) 99 08/23/17 07:00 71 08/23/17 04:20 98 40 08/23/17 04:00 40 08/23/17 03:00 63 08/23/17 03:00 99 Mechanical Ventilator 40 08/23/17 03:00 98.9 63 15 105/53 (70) 99 08/23/17 01:56 94 40 08/23/17 00:00 40 08/22/17 23:00 99.2 72 14 96/53 (67) 94 08/22/17 23:00 94 Mechanical Ventilator 40 08/22/17 23:00 72 08/22/17 22:54 95 40 08/22/17 20:46 95 40 08/22/17 20:00 40 08/22/17 19:00 75 08/22/17 19:00 95 Mechanical Ventilator 40 08/22/17 19:00 98.9 73 14 107/62 (77) 95 08/22/17 18:15 95 40 08/22/17 18:00 40 08/22/17 15:00 99.4 73 14 116/3 (40) 99 08/22/17 15:00 73 08/22/17 15:00 40 08/22/17 15:00 99 Mechanical Ventilator 40 08/22/17 14:05 40 08/22/17 14:00 76 97/54 I/O 08/22/17 08/22/17 08/22/17 08/23/17 08/23/17 08/23/17 07:00 15:00 23:00 07:00 15:00 23:00 Intake Total 1540 ml 100 ml 350 ml 872 ml Output Total 565 ml 945 ml 900 ml Balance 975 ml 100 ml -595 ml -28 ml IV Total 1077 ml 100 ml Tube Feeding 213 ml 170 ml 752 ml Tube Irrigant 250 ml 180 ml 120 ml Output Urine Total 525 ml 835 ml 800 ml Chest Tube Drainage Total 40 ml 110 ml 100 ml # Bowel Movements 0 0 0 Physical Exam GENERAL: SKIN: Warm and dry. HEAD: Normocephalic. EYES: No scleral icterus. No injection or drainage. NECK: Supple, trachea midline. No JVD or lymphadenopathy. CARDIOVASCULAR: Regular rate and rhythm without murmurs, gallops, or rubs. RESPIRATORY: Breath sounds equal bilaterally. No accessory muscle use. GASTROINTESTINAL: Abdomen soft, non-tender, nondistended. MUSCULOSKELETAL: No cyanosis, or edema. BACK: Nontender without obvious deformity. No CVA tenderness. Laboratory Laboratory Tests Test 08/23/17 04:20 08/23/17 08:29 08/23/17 08:30 White Blood Count 9.8 TH/MM3 Red Blood Count 2.96 MIL/MM3 Hemoglobin 9.6 GM/DL Hematocrit 27.2 % Mean Corpuscular Volume 92.0 FL Mean Corpuscular Hemoglobin 32.5 PG Mean Corpuscular Hemoglobin Concent 35.3 % Red Cell Distribution Width 13.9 % Platelet Count 156 TH/MM3 Mean Platelet Volume 8.7 FL Blood Urea Nitrogen 12 MG/DL Creatinine 0.72 MG/DL Random Glucose 250 MG/DL Total Protein 5.0 GM/DL Calcium Level 7.2 MG/DL Sodium Level 138 MEQ/L Potassium Level 3.7 MEQ/L Chloride Level 102 MEQ/L Carbon Dioxide Level 28.9 MEQ/L Anion Gap 7 MEQ/L Estimat Glomerular Filtration Rate 105 ML/MIN Protein Corrected Calcium 8.3 MG/DL Blood Gas Puncture Site LT RADIAL Blood Gas Patient Temperature 98.6 Blood Gas HCO3 29 mmol/L Blood Gas Base Excess 4.6 mmol/L Blood Gas Oxygen Saturation 97 % Arterial Blood pH 7.43 Arterial Blood Partial Pressure CO2 44 mmHg Arterial Blood Partial Pressure O2 129 mmHg Arterial Blood Oxygen Content 19.8 Vol % Arterial Blood Carboxyhemoglobin 0.8 % Arterial Blood Methemoglobin 1.2 % Blood Gas Hemoglobin 14.5 G/DL Oxygen Delivery Device VENTILATOR Blood Gas Ventilator Setting A/C14/500/PEEP5 Blood Gas Inspired Oxygen 40 % Lactic Acid Level 1.3 mmol/L Assessment and Plan Problem List: (1) BPH (benign prostatic hyperplasia) ICD Codes: N40.0 - Benign prostatic hyperplasia without lower urinary tract symptoms (2) S/P CABG x 3 ICD Codes: Z95.1 - Presence of aortocoronary bypass graft (3) CAD (coronary artery disease) ICD Codes: I25.10 - Atherosclerotic heart disease of crow coronary artery without angina pectoris (4) Diabetes mellitus ICD Codes: E11.9 - Type 2 diabetes mellitus without complications (5) PAD (peripheral artery disease) ICD Codes: I73.9 - Peripheral vascular disease, unspecified (6) Angina pectoris ICD Codes: I20.9 - Angina pectoris, unspecified (7) Syncopal episodes ICD Codes: R55 - Syncope and collapse (8) Afib ICD Codes: I48.91 - Unspecified atrial fibrillation Assessment and Plan 1.) pod#4 cabg - wean vent as tolerated, continue aspirin 81 mg qd, lipitor 80 hs, coreg 3.125 mg bid 2.) PAF - on amio, chads score = 3, ac when cleared by ct surgery 3.) Encephalopathy - neuro following, mri with no acute findings, improving 4.) Spinal stenosis - c collar in place, neurosurg following Scott Aviles MD Aug 23, 2017 11:37
--- NOTE | 2017-08-23 14:11 | HHI.CCPN ---
Subjective Remarks/Hospital Course Hospital Course: This is an 82-year-old male. Date of admission 08/19/2017. Date of consultation 08/20/2017. Past medical history includes hypertension, dyslipidemia, peripheral vascular disease, dementia, atrial fibrillation, depression. BPH, gastroesophageal reflux disease. One week ago, patient had an elective catheterization with Dr. Aviles revealed a minimal luminal area of approximately 4 mm squared by IVUS of the distal left main, moderate to severe LAD fibrocalcific disease. Yesterday the patient underwent a CABG 3 CAIN to LAD, SVG to OM1 and PDA with EVH per Dr. Rogel. One pleural/ mediastinal chest tube placed. Sanguinous output noted. Today, patient was ambulatory in the hallway with acutely became unresponsive with a leftward gaze at approximately 955. This patient was placed in a chair and moved directly to his room in 446. Patient was emergently intubated for airway protection using Midazolam and rocuronium. Stroke alert was called. Stat CT brain/CTA head and neck revealed no acute timings. Not a candidate for TPA due to recent CABG. He currently undergoing. Patient is currently hemodynamically stable Subjective: 08/21: remains with significant neuro deficits. on my evaluation, he has no movement of upper and lower extremities. however, with stimulation, will open eyes, tracks, and even appears to blink eyes to command and stick out tongue to command. grimaces to pain in all 4 extremities which would suggest sensation is grossly intact. on low dose phenylephrine to maintain cerebral perfusion pressure. 08/22: awake and following commands. extremity strength improving. MRI brain normal. MRI c-spine with high stenosis around the dens, but without cord edema or increased cord signal. remains on low-dose phenylephrine to maintain cerebral perfusion pressure. 08/23: extubated this morning. following commands. still somewhat weak in the extremities, but improving from yesterday. [place] J collar in place. neurosurgery recommended conservative management at this time. Objective Vital Signs Date Time Temp Pulse Resp B/P (MAP) Pulse Ox O2 Delivery O2 Flow Rate FiO2 08/23/17 11:00 94 Nasal Cannula 4.00 08/23/17 11:00 98.2 73 18 91/45 (60) 08/23/17 08:24 40 Intake and Output 08/23/17 08/23/17 08/24/17 08:00 16:00 00:00 Intake Total 872 ml Output Total 900 ml Balance -28 ml Result Diagram: 08/23/17 0420 08/23/17 0420 Other Results Laboratory Tests Test 08/23/17 08:29 Blood Gas Puncture Site LT RADIAL Blood Gas Patient Temperature 98.6 Blood Gas HCO3 29 mmol/L (22-26) Blood Gas Base Excess 4.6 mmol/L (-2-2) Blood Gas Oxygen Saturation 97 % (90-100) Arterial Blood pH 7.43 (7.380-7.420) Arterial Blood Partial Pressure CO2 44 mmHg (38-42) Arterial Blood Partial Pressure O2 129 mmHg (61-120) Arterial Blood Oxygen Content 19.8 Vol % (12.0-20.0) Arterial Blood Carboxyhemoglobin 0.8 % (0-4) Arterial Blood Methemoglobin 1.2 % (0-2) Blood Gas Hemoglobin 14.5 G/DL (12.0-16.0) Oxygen Delivery Device VENTILATOR Blood Gas Ventilator Setting A/C14/500/PEEP5 Blood Gas Inspired Oxygen 40 % Imaging Last Impressions Chest X-Ray 08/20/17 0500 Signed Impressions: Service Date/Time: July 04:11 - CONCLUSION: 1. Left-sided chest tube with questionable small lateral pneumothorax. Enrique Echeverria MD Head CTA 08/20/17 0000 Signed Impressions: Service Date/Time: July 10:49 - CONCLUSION: 1. Negative CTA examination of the head. Specifically, no evidence for large vessel occlusion. Dragan Oreilly MD Head CT 08/20/17 0000 Signed Impressions: Service Date/Time: July 10:35 - CONCLUSION: 1. Senescent changes. 2. No acute intracranial abnormality. 3. Left maxillar sinus disease. Dragan Oreilly MD Objective Remarks GENERAL: 82-year-old male, lying in bed, no acute distress. SKIN: Warm and dry. HEAD: Atraumatic. Normocephalic. EYES: Pupils equal and round about 1-2 mm bilaterally and sluggish. No scleral icterus. No injection or drainage. ENT: No nasal bleeding or discharge. Mucous membranes pink and moist. NECK: Trachea midline. No JVD. Right IJ Cordis clean dry and intact. c-collar in place. CARDIOVASCULAR: normal sinus by tele. regular rate and rhythm. RESPIRATORY: No accessory muscle use. Clear to auscultation. Breath sounds equal bilaterally. Mediastinal/left chest tube intact. GASTROINTESTINAL: Abdomen soft, non-tender, nondistended. MUSCULOSKELETAL: Extremities without significant peripheral edema. NEUROLOGICAL: RASS 0. follows commands. JHON 4+/5 x 4. A/P Assessment and Plan Assessment: 82yM POD 4 s/p CABG, course complicated by acute-onset weakness and encephalopathy. Weakness likely secondary to unstable C1/2 narrowing with intermittent functional compression. C-collar in place at all times. PT consult to mobilize patient. Neuro/Psych: Acute encephalopathy - resolved. Migraine headache Glaucoma History of vertigo Dementia disorder NOS History anterior spinal fusion History L3/4 level laminectomy Peripheral neuropathy High grade cervical stensosis at the dens. 10/[address] brain revealed no acute intracranial findings. Maxillary sinus disease. 10/[address] angiogram brain revealed no large vessel disease. Carotid results radial towards left carotid. Moderate disease but not flow-limiting.. Specifically no basilar artery disease. Currently on donepezil 5 mg daily for dementia. Continue Continued dorzol/timolol 2/0.5 centimeters one drop twice a day and latanoprost 0.005% 1 drop each eye at night for glaucoma Continue gabapentin [address] Lawrence neurology consulted EEG 08/20: severe slowing, encephalopathy EEG 08/21: repeat, moderate slowing. MRI brain and c-spine 10/21: high grade cervical stenosis at the dens. Neurosurgery: Dr. Rodney, recommends conservative management with [place]-J collar. CV: Postop day 4 CABG 3 - CAIN to LAD, SVG to OM1/PDA with EVH by Dr. Rollins Coronary artery disease Hypertension Dyslipidemia Claudication/peripheral vascular disease Continue amiodarone 200 mg by mouth twice a day hold carvedilol 3.125 mg twice a day, hold lisinopril 5 mg daily for hypertension Currently on atorvastatin 80 mg by mouth daily. On rosuvastatin 40 mg daily at home. For dyslipidemia Continue aspirin 81 mg daily Currently holding pentoxifylline 400 mg daily for claudication phenylephrine as needed for maintenance of cerebral perfusion. Resp: Acute hypoxic and hypercarbic respiratory failure - resolving. History of JHON does not use CPAP aggressive pulmonary toilet. Albuterol/ipratropium aerosols every 6 hours while awake Mediastinal/left chest tube, management per CT surgery. OOB with PT. GI: Gastroesophageal reflux disease swallow eval and advance diet. Pantoprazole for GI prophylaxis Docusate sodium for bowel regimen : BPH History of nephrolithiasis Continue tamsulosin 0.4 mg by mouth daily. Maintain Chris catheter Endo: Diabetes mellitus Currently holding insulin glargine 35 units at night sitagliptin/metformin 20/ 500 one tablet being held as well Sliding-scale insulin per CT surgery protocol Renal: Creatinine currently within normal limits Monitor urine output Accurate I's and O's Heme: Leukocytosis Normocytic anemia Monitor CBC daily. Follow trends. ID: Postoperative antibiotics with cefazolin 1 g IV every 8 hours [address] surgery Monitor for infection FEN: Replace electrolytes as clinically indicated MSK: Osteoarthritis PT evaluate and treat Access - Right IJ Cortis/dual-lumen day #5- continue, likely can d/c in AM. Prophylaxis - GI - pantoprazole - DVT - BHASKAR hose left lower extremity/pharmacological prophylaxis when okay with CT surgery Jerome Bales MD Aug 23, 2017 14:11
--- NOTE | 2017-08-23 15:24 | HHI.NSPN ---
History Chief Complaint: neck pain Interval History Mr. Lyman is an 82-year-old male with a history of coronary artery disease, peripheral vascular disease, atrial fibrillation, hypertension, hyperlipidemia who recently underwent a CABG on 08/19/17. His immediate postoperative course was uneventful. However on 08/20/17 he was walking in the lo[place] and became acutely unresponsive with left gaze deviation. He was intubated and a stroke alert was called. A CT scan of the head as well as a CT angiogram at that time did not reveal any significant acute abnormalities. TPA was not administered. His records indicate that on 08/21/17 he remained with absent limits of the upper and lower extremities but was opening his eyes and tracking and response to stimulation and sticking out his tongue to command. An MRI of the brain and cervical spine was accomplished which revealed cervical stenosis without cord edema. Discussion with intensive as earlier today he indicated that his neurologic function has been improving with some movement of the extremities. 08/23/17: Extubated. Up in chair. Extremity movement significantly improved compared to an 14/06/17 exam Exam Results Vital Signs Date Time Temp Pulse Resp B/P (MAP) Pulse Ox O2 Delivery O2 Flow Rate FiO2 08/23/17 11:00 94 Nasal Cannula 4.00 08/23/17 11:00 98.2 73 18 91/45 (60) 08/23/17 08:24 40 Intake and Output 08/23/17 08/23/17 08/24/17 08:00 16:00 00:00 Intake Total 872 ml Output Total 900 ml Balance -28 ml Physical Examination Gen.: Sitting up in a chair, appears reasonable comfortable, no apparent distress. Neck: Mild left neck and medial shoulder discomfort, tenderness. He is in a cervical collar Respirations clear, nonlabored Cardiac: Regular Abdomen: Soft nontender Extremities: Mild distal lower extremity edema without cyanosis Neurologic: Awake and relatively alert. Mild hoarseness of voice. Answers simple questions and follows commands all extremities. Extraocular movements intact Facial motor movements limited but appears symmetric Tongue protrudes slightly in the midline Sensation intact to light touch all extremities Strength is mostly 4/5 all major flexion and extension groups throughout the upper and lower extremities with 3/5 hand intrinsics. Lj's response absent bilateral No ankle clonus Lab, Micro, Other Results Laboratory Tests Test 08/23/17 04:20 08/23/17 08:29 08/23/17 08:30 White Blood Count 9.8 TH/MM3 Red Blood Count 2.96 MIL/MM3 Hemoglobin 9.6 GM/DL Hematocrit 27.2 % Mean Corpuscular Volume 92.0 FL Mean Corpuscular Hemoglobin 32.5 PG Mean Corpuscular Hemoglobin Concent 35.3 % Red Cell Distribution Width 13.9 % Platelet Count 156 TH/MM3 Mean Platelet Volume 8.7 FL Blood Urea Nitrogen 12 MG/DL Creatinine 0.72 MG/DL Random Glucose 250 MG/DL Total Protein 5.0 GM/DL Calcium Level 7.2 MG/DL Sodium Level 138 MEQ/L Potassium Level 3.7 MEQ/L Chloride Level 102 MEQ/L Carbon Dioxide Level 28.9 MEQ/L Anion Gap 7 MEQ/L Estimat Glomerular Filtration Rate 105 ML/MIN Protein Corrected Calcium 8.3 MG/DL Blood Gas Puncture Site LT RADIAL Blood Gas Patient Temperature 98.6 Blood Gas HCO3 29 mmol/L Blood Gas Base Excess 4.6 mmol/L Blood Gas Oxygen Saturation 97 % Arterial Blood pH 7.43 Arterial Blood Partial Pressure CO2 44 mmHg Arterial Blood Partial Pressure O2 129 mmHg Arterial Blood Oxygen Content 19.8 Vol % Arterial Blood Carboxyhemoglobin 0.8 % Arterial Blood Methemoglobin 1.2 % Blood Gas Hemoglobin 14.5 G/DL Oxygen Delivery Device VENTILATOR Blood Gas Ventilator Setting A/C14/500/PEEP5 Blood Gas Inspired Oxygen 40 % Lactic Acid Level 1.3 mmol/L Medical Decision Making Impression and Plan Impression: 1. 1. Quadriparesis. Improving. No definite evidence of spinal cord compression or infarction on MRI. Probable temporary ischemic deficit. Plan: Continue PT/OT Continue to mobilize out of bed with cervical collar. Plan cervical flexion, extension images when he is more stable to perform the study. Continue cervical collar when out of bed for now. Discussed with dairy scientist today Jerrell Rodney MD Aug 23, 2017 15:24
[2017-08-23] MEDS: ACETAMINOPHEN 325 MG TAB PO PRN (17:30)
[2017-08-23] MEDS: GABAPENTIN 100 MG CAP PO SCH (20:24)
[2017-08-23] MEDS: TAMSULOSIN HCL 0.4 MG CAP PO SCH (20:24)
[2017-08-23] MEDS: VENLAFAXINE HCL XR 75 MG CAP PO SCH (20:24)
[2017-08-23] MEDS: DONEPEZIL HCL 5 MG TAB PO SCH (20:24)
[2017-08-23] MEDS: SENNOSIDES 8.6 MG TAB PO SCH (20:24)
[2017-08-23] MEDS: LATANOPROST 0.005% OPHT SOLN 2.5 ML BTL EACH EYE SCH (21:00)
[2017-08-24] VITALS (18 sets, daily range): BP systolic 91–138; BP diastolic 5–68; PULSE 51–79; RESP 16–20; TEMP 97.8–99.1; O2SAT 94–100
[2017-08-24 04:45] LABS: HEMATOCRIT 25.7 % (39.0-51.0); MEAN CORPUSCULAR HEMOGLOBIN 32.7 PG (27.0-34.0); MEAN CORPUSCULAR HGB CONC 35.5 % (32.0-36.0); PLATELET COUNT 131 TH/MM3 (150-450); RED BLOOD COUNT 2.79 MIL/MM3 (4.50-5.90); RED CELL DISTRIBUTION WIDTH 14.2 % (11.6-17.2); REVIEW FLAG FINAL; WHITE BLOOD COUNT 6.1 TH/MM3 (4.0-11.0)
[2017-08-24 05:19] LABS: BICARBONATE 31.2 MEQ/L (21.0-32.0); POTASSIUM 3.9 MEQ/L (3.5-5.1)
[2017-08-24] MEDS: PANTOPRAZOLE SODIUM 40 MG VIAL IV PUSH SCH (06:00)
--- NOTE | 2017-08-24 07:20 | PD.CAR.PN ---
CVT Progress Note CVT: POD #: 5 Subjective/Hospital Course: 82/ male hx of recent chest pain , unstable angina, + stress / underwent heart cath multi vessel disease EF 50% admitted electively for surgery PMH: CAD, DM, PAD, vertigo , BPH, glaucoma surgery :08/19 CABG x 3 CAIN to LAD - very poor SVG to OM1 - fair SVG to PDA - fair EVH 08/20 pt did well this am alert and oriented , extubated after surgery , did c/o of nausea and lightheadedness this am after getting up from chair to bed was called later in am 9:55 am 11/27 , patient was ambulatory in the hallway with acutely became unresponsive with a leftward gaze at approximately 955. This patient was placed in a chair and moved directly to his room in 446. Patient was emergently intubated for airway protection using Midazolan and rocuronium. Stroke alert was called. Stat CT brain/CTA head and neck revealed no acute timings. Not a candidate for TPA due to recent CABG. He currently undergoing. Patient is currently hemodynamically stable as the course of day pt more awake, opens eyes and attempts to track, not on any sedation, spoke in depth with son remains intubated, eval for more alertness in am , appreciate Neuro and [facility] chest tubes remain in place 08/21 pt placed on keppra and propofol last pm, per nursing staff, pt had jerky movements to left side of face, left arm and leg despite EEG showing no evidence of seizure. BP labile while on propofol, fluid bolus given CCM following , chest tube left in place while pt on vent pt remains on vent not opening eyes, or following commands MRI Brain pending 08/22/17 Improving. Following commands, weaning from ventilator tube feeds started 08/23/17 alert, oriented. Following commands appropriately c/o lower abdominal pain 08/24/17 Awake and alert, improving strength, c/o neck pain/stiffness Objective: Vital Signs Date Time Temp Pulse Resp B/P (MAP) Pulse Ox O2 Delivery O2 Flow Rate FiO2 08/24/17 03:00 61 08/24/17 03:00 99.1 61 18 95/50 (65) 99 08/24/17 03:00 99 Mechanical Ventilator 4.00 08/23/17 23:00 99 Mechanical Ventilator 4.00 08/23/17 23:00 98.3 61 18 100/49 (66) 99 08/23/17 23:00 61 08/23/17 20:16 96 Nasal Cannula 4.00 08/23/17 19:00 99.2 67 18 90/60 (70) 92 08/23/17 19:00 67 08/23/17 19:00 92 Mechanical Ventilator 4.00 08/23/17 18:32 18 08/23/17 16:56 69 122/63 08/23/17 15:00 96 Nasal Cannula 5.00 08/23/17 15:00 69 08/23/17 15:00 97.9 71 18 95/56 (69) 99 08/23/17 11:00 94 Nasal Cannula 4.00 08/23/17 11:00 98.2 73 18 91/45 (60) 94 08/23/17 11:00 73 08/23/17 08:52 98 Nasal Cannula 4.00 08/23/17 08:52 98 Nasal Cannula 4 08/23/17 08:24 Nasal Cannula 40 08/23/17 08:24 98 40 08/23/17 08:17 99 40 08/23/17 08:00 40 Labs: Laboratory Tests Test 08/24/17 04:00 White Blood Count 6.1 TH/MM3 (4.0-11.0) Red Blood Count 2.79 MIL/MM3 (4.50-5.90) Hemoglobin 9.1 GM/DL (13.0-17.0) Hematocrit 25.7 % (39.0-51.0) Mean Corpuscular Volume 92.0 FL (80.0-100.0) Mean Corpuscular Hemoglobin 32.7 PG (27.0-34.0) Mean Corpuscular Hemoglobin Concent 35.5 % (32.0-36.0) Red Cell Distribution Width 14.2 % (11.6-17.2) Platelet Count 131 TH/MM3 (150-450) Mean Platelet Volume 8.3 FL (7.0-11.0) Blood Urea Nitrogen 13 MG/DL (7-18) Creatinine 0.56 MG/DL (0.60-1.30) Random Glucose 137 MG/DL (74-106) Calcium Level 7.6 MG/DL (8.5-10.1) Sodium Level 139 MEQ/L (136-145) Potassium Level 3.9 MEQ/L (3.5-5.1) Chloride Level 103 MEQ/L (98-107) Carbon Dioxide Level 31.2 MEQ/L (21.0-32.0) Anion Gap 5 MEQ/L (5-15) Estimat Glomerular Filtration Rate 140 ML/MIN (>89) Result Diagram: 08/24/1739908/24/17399 Cardiovascular: RRR Telemetry: NSR Pulmonary: CTA GI/: NABS, NT Incision: dry and intact Plan: Remove james PT/OT Advance diet Up to chair/ambulate Possible transfer to stepdown later today. Will contact Dr. Arroyo or Lev for Neurosurgery disposition. (1) BPH (benign prostatic hyperplasia) (2) S/P CABG x 3 Plan: on ASA , amiodarone , BB on hold for SBP<100 (3) CAD (coronary artery disease) (4) Diabetes mellitus Plan: weaned off insulin gtt, on sliding scale (5) PAD (peripheral artery disease) Plan: on ASA, resume Trental when possible (6) Angina pectoris (7) Syncopal episodes Plan: s/p stroke alert EEG no evidence of seizures, some encephalopathy CTA head neck neg Neuro following MRI Brain pending (8) Afib Plan: on amiodarone Jackie Rogel MD Aug 24, 2017 07:20
[2017-08-24] MEDS: CHLORHEXIDINE 0.12% (ORAL KIT) 15 ML CUP MT SCH ×2 (08:00→20:00)
--- NOTE | 2017-08-24 08:29 | HHI.CCPN ---
Subjective Remarks/Hospital Course Hospital Course: This is an 82-year-old male. Date of admission 08/19/2017. Date of consultation 08/20/2017. Past medical history includes hypertension, dyslipidemia, peripheral vascular disease, dementia, atrial fibrillation, depression. BPH, gastroesophageal reflux disease. One week ago, patient had an elective catheterization with Dr. Aviles revealed a minimal luminal area of approximately 4 mm squared by IVUS of the distal left main, moderate to severe LAD fibrocalcific disease. Yesterday the patient underwent a CABG 3 CAIN to LAD, SVG to OM1 and PDA with EVH per Dr. Rogel. One pleural/ mediastinal chest tube placed. Sanguinous output noted. Today, patient was ambulatory in the hallway with acutely became unresponsive with a leftward gaze at approximately 955. This patient was placed in a chair and moved directly to his room in 446. Patient was emergently intubated for airway protection using Midazolam and rocuronium. Stroke alert was called. Stat CT brain/CTA head and neck revealed no acute timings. Not a candidate for TPA due to recent CABG. He currently undergoing. Patient is currently hemodynamically stable Subjective: 08/21: remains with significant neuro deficits. on my evaluation, he has no movement of upper and lower extremities. however, with stimulation, will open eyes, tracks, and even appears to blink eyes to command and stick out tongue to command. grimaces to pain in all 4 extremities which would suggest sensation is grossly intact. on low dose phenylephrine to maintain cerebral perfusion pressure. 08/22: awake and following commands. extremity strength improving. MRI brain normal. MRI c-spine with high stenosis around the dens, but without cord edema or increased cord signal. remains on low-dose phenylephrine to maintain cerebral perfusion pressure. 08/23: extubated this morning. following commands. still somewhat weak in the extremities, but improving from yesterday. lovelock J collar in place. neurosurgery recommended conservative management at this time. 08/24: doing well. OOB to chair yesterday. weakness continues to improve. no complaints. stable for transfer out of ICU. Objective Vital Signs Date Time Temp Pulse Resp B/P (MAP) Pulse Ox O2 Delivery O2 Flow Rate FiO2 08/24/17 07:00 99 Nasal Cannula 4.00 08/24/17 07:00 98.8 66 18 102/52 (69) 08/23/17 08:24 40 Intake and Output 08/24/17 08/24/17 08/25/17 08:00 16:00 00:00 Intake Total 100 ml Output Total 400 ml Balance -300 ml Result Diagram: 08/24/17 0400 08/24/17 0400 Other Results Laboratory Tests Test 08/23/17 08:29 Blood Gas Puncture Site LT RADIAL Blood Gas Patient Temperature 98.6 Blood Gas HCO3 29 mmol/L (22-26) Blood Gas Base Excess 4.6 mmol/L (-2-2) Blood Gas Oxygen Saturation 97 % (90-100) Arterial Blood pH 7.43 (7.380-7.420) Arterial Blood Partial Pressure CO2 44 mmHg (38-42) Arterial Blood Partial Pressure O2 129 mmHg (61-120) Arterial Blood Oxygen Content 19.8 Vol % (12.0-20.0) Arterial Blood Carboxyhemoglobin 0.8 % (0-4) Arterial Blood Methemoglobin 1.2 % (0-2) Blood Gas Hemoglobin 14.5 G/DL (12.0-16.0) Oxygen Delivery Device VENTILATOR Blood Gas Ventilator Setting A/C14/500/PEEP5 Blood Gas Inspired Oxygen 40 % Imaging Last Impressions Chest X-Ray 08/20/17 0500 Signed Impressions: Service Date/Time: July 04:11 - CONCLUSION: 1. Left-sided chest tube with questionable small lateral pneumothorax. Enrique Echeverria MD Head CTA 08/20/17 0000 Signed Impressions: Service Date/Time: July 10:49 - CONCLUSION: 1. Negative CTA examination of the head. Specifically, no evidence for large vessel occlusion. Dragan Oreilly MD Head CT 08/20/17 0000 Signed Impressions: Service Date/Time: July 10:35 - CONCLUSION: 1. Senescent changes. 2. No acute intracranial abnormality. 3. Left maxillar sinus disease. Dragan Oreilly MD Objective Remarks GENERAL: 82-year-old male, lying in bed, no acute distress. SKIN: Warm and dry. HEAD: Atraumatic. Normocephalic. EYES: Pupils equal and round reactive and conjugate. ENT: Mucous membranes pink and moist. NECK: Trachea midline. No JVD. c-collar in place. CARDIOVASCULAR: normal sinus by tele. regular rate and rhythm. RESPIRATORY: No accessory muscle use. unlabored. equal chest rise. GASTROINTESTINAL: Abdomen soft, non-tender, nondistended. MUSCULOSKELETAL: Extremities without significant peripheral edema. NEUROLOGICAL: RASS 0. follows commands. JHON 4+/5 x 4. A/P Assessment and Plan Assessment: 82yM POD 5 s/p CABG, course complicated by acute-onset weakness and encephalopathy. Weakness likely secondary to unstable C1/2 narrowing with intermittent functional compression. C-collar in place at all times. PT consult to mobilize patient. Flexion/extension films to be guided by neurosurgery. stable to transfer out of ICU. Neuro/Psych: Acute encephalopathy - resolved. Migraine headache Glaucoma History of vertigo Dementia disorder NOS History anterior spinal fusion History L3/4 level laminectomy Peripheral neuropathy High grade cervical stensosis at the dens. 10/[address] brain revealed no acute intracranial findings. Maxillary sinus disease. 10/[address] angiogram brain revealed no large vessel disease. Carotid results radial towards left carotid. Moderate disease but not flow-limiting.. Specifically no basilar artery disease. Currently on donepezil 5 mg daily for dementia. Continue Continued dorzol/timolol 2/0.5 centimeters one drop twice a day and latanoprost 0.005% 1 drop each eye at night for glaucoma Continue gabapentin [address] Lawrence neurology consulted EEG 08/20: severe slowing, encephalopathy EEG 08/21: repeat, moderate slowing. MRI brain and c-spine 10/21: high grade cervical stenosis at the dens. Neurosurgery: Dr. Rodney, recommends conservative management with lovelock-J collar. Flexion/extension films guided by Dr. Rodney CV: Postop day 4 CABG 3 - CAIN to LAD, SVG to OM1/PDA with EVH by Dr. Rollins Coronary artery disease Hypertension Dyslipidemia Claudication/peripheral vascular disease Continue amiodarone 200 mg by mouth twice a day carvedilol 3.125 mg twice a day, Currently on atorvastatin 80 mg by mouth daily. On rosuvastatin 40 mg daily at home. For dyslipidemia Continue aspirin 81 mg daily Currently holding pentoxifylline 400 mg daily for claudication Resp: Acute hypoxic and hypercarbic respiratory failure - resolving. History of JHON does not use CPAP aggressive pulmonary toilet. Albuterol/ipratropium aerosols every 6 hours while awake OOB with PT. GI: Gastroesophageal reflux disease cardiac diet as tolerated. Pantoprazole for GI prophylaxis Docusate sodium for bowel regimen : BPH History of nephrolithiasis Continue tamsulosin 0.4 mg by mouth daily. d/c james. Endo: Diabetes mellitus Currently holding insulin glargine 35 units at night sitagliptin/metformin 20/ 500 one tablet being held as well Sliding-scale insulin per CT surgery protocol Renal: Creatinine currently within normal limits Monitor urine output Accurate I's and O's Heme: Leukocytosis Normocytic anemia Monitor CBC daily. Follow trends. ID: Postoperative antibiotics with cefazolin 1 g IV every 8 hours [address] surgery Monitor for infection FEN: Replace electrolytes as clinically indicated MSK: Osteoarthritis PT evaluate and treat Access - Right IJ Cortis/dual-lumen day #6- can d/c today. Prophylaxis - GI - pantoprazole - DVT - BHASKAR hose left lower extremity/pharmacological prophylaxis when okay with CT surgery Critical Care medicine will sign off. Please re-consult as needed. Jerome Bales MD Aug 24, 2017 08:29
[2017-08-24] MEDS: INSULIN ASPART SUPPLEMENTAL SCALE SQ SCH ×4 (08:36→21:00)
[2017-08-24] MEDS: POLYETHYLENE GLYCOL 17 GM PKG PO SCH (08:50)
[2017-08-24] MEDS: DOCUSATE SODIUM 100 MG CAP PO SCH ×2 (08:50→21:00)
[2017-08-24] MEDS: AMIODARONE 200 MG TAB PO SCH ×2 (08:50→21:43)
[2017-08-24] MEDS: ATORVASTATIN 80 MG TAB PO SCH (08:50)
[2017-08-24] MEDS: MULTIVITAMINS/MINERALS THERAPEUTIC TAB PO SCH (08:50)
[2017-08-24] MEDS: ASPIRIN 81 MG CHEW TAB PO SCH (08:51)
[2017-08-24] MEDS: MAGNESIUM HYDROXIDE SUSP 30 ML CUP PO SCH (08:51)
[2017-08-24] MEDS: SODIUM CHLORIDE 0.9% FLUSH 10 ML FLUSH IV FLUSH SCH ×2 (08:53→21:43)
[2017-08-24] MEDS: DORZOLAMIDE/TIMOLOL OPTH SOLN 10 ML BTL EACH EYE SCH ×2 (08:55→21:43)
[2017-08-24] MEDS: levETIRAcetam INJ 750 MG in SODIUM CHLORIDE 0.9% INJ 100 ML IV SCH ×2 (10:38→21:44)
[2017-08-24] MEDS: CARVEDILOL 3.125 MG TAB PO SCH ×2 (10:43→21:43)
--- NOTE | 2017-08-24 13:16 | PD.CARD.PN ---
Subjective Subjective Remarks alert in nad talking with visitors Objective Medications Current Medications Medications (Trade) Dose Ordered Sig/Keren Route Start Time Stop Time Status Last Admin (NS Flush) 2 ml BID IV FLUSH 08/19/17 21:00 08/24/17 08:53 (NS Flush) 2 ml UNSCH PRN IV FLUSH 08/19/17 11:00 (Aspirin Chew) 81 mg DAILY PO 08/20/17 09:00 08/24/17 08:51 (Tylenol) 650 mg Q4H PRN PO 08/19/17 11:00 08/23/17 17:30 (Percocet 5-325 Mg) 1 tab Q3H PRN PO 08/19/17 11:00 08/20/17 06:18 (Zofran Inj) 4 mg Q6H PRN IV PUSH 08/19/17 11:00 08/20/17 08:26 (Apresoline Inj) 10 mg Q4H PRN IV PUSH 08/19/17 11:00 (Lopressor Inj) 2.5 mg Q1H PRN IV PUSH 08/19/17 11:00 (Duoneb Neb) 1 ampule Q2HR NEB PRN NEB 08/19/17 11:00 (Aricept) 5 mg HS PO 08/19/17 21:00 08/23/17 20:24 (Cosopt 2-0.5% Opth Soln) 1 drop BID EACH EYE 08/19/17 21:00 08/24/17 08:55 (Xalatan 0.005% Opth Soln) 1 drop HS EACH EYE 08/19/17 21:00 08/23/17 21:00 (Flomax) 0.4 mg HS PO 08/19/17 21:00 08/23/17 20:24 (Effexor Xr) 150 mg HS PO 08/19/17 21:00 08/23/17 20:24 (Lipitor) 80 mg DAILY PO 08/20/17 09:00 08/24/17 08:50 (Coreg) 3.125 mg BID PO 08/20/17 10:00 08/24/17 10:43 (Neurontin) 100 mg HS PO 08/20/17 21:00 08/23/17 20:24 (Colace) 100 mg BID PO 08/20/17 21:00 08/24/17 08:50 (Theragran M Tab) 1 tab DAILY PO 08/20/17 10:15 08/24/17 08:50 (Milk Of Magnesia Liq) 30 ml DAILY PO 08/20/17 10:30 08/24/17 08:51 (Dulcolax Supp) 10 mg UNSCH PRN RECTAL 08/20/17 08:45 (Miralax) 17 gm DAILY PO 08/21/17 09:00 08/24/17 08:50 (Senokot) 8.6 mg HS PO 08/20/17 21:00 08/23/17 20:24 (Fleets Enema (Adult)) 133 ml UNSCH PRN RECTAL 08/20/17 08:45 (D50w (Vial) Inj) 50 ml UNSCH PRN IV PUSH 08/20/17 08:45 (Glucagon Inj) 1 mg UNSCH PRN OTHER 08/20/17 08:45 (NovoLOG SUPPLEMENTAL SCALE) 1 ACHS SQ 08/21/17 12:00 08/24/17 08:36 (Peridex 0.12% Liq) 15 ml BID@08,20 MT 08/20/17 20:00 08/23/17 07:55 (Protonix Inj) 40 mg Q24H IV PUSH 08/21/17 06:00 08/24/17 06:00 Levetriacetam 750 mg/Sodium Chloride 107.5 ml @ 215 mls/hr Q12H IV 08/20/17 22:30 08/24/17 10:38 Dextrose/Sodium Chloride 1,000 ml @ 75 mls/hr [id number] IV 08/21/17 17:15 08/22/17 06:02 (Cordarone) 400 mg Q12HR PO 08/22/17 09:00 08/24/17 08:50 Phenylephrine HCl 80 mg/Dextrose 500 ml @ 15 mls/hr TITRATE PRN IV 08/22/17 14:00 08/22/17 14:00 (Brethine Inj) 1 mg UNSCH PRN SQ 08/22/17 14:00 Vital Signs / I&O Vital Signs Date Time Temp Pulse Resp B/P (MAP) Pulse Ox O2 Delivery O2 Flow Rate FiO2 08/24/17 10:00 98 Nasal Cannula 4.00 08/24/17 10:00 64 20 107/55 (72) 98 08/24/17 07:56 95 Nasal Cannula 4.00 08/24/17 07:00 99 Nasal Cannula 4.00 08/24/17 07:00 98.8 66 18 102/52 (69) 94 08/24/17 07:00 66 08/24/17 03:00 61 08/24/17 03:00 99.1 61 18 95/50 (65) 99 08/24/17 03:00 99 4.00 08/23/17 23:00 99 Nasal Cannula 4.00 08/23/17 23:00 98.3 61 18 100/49 (66) 99 08/23/17 23:00 61 08/23/17 20:16 96 Nasal Cannula 4.00 08/23/17 19:00 99.2 67 18 90/60 (70) 92 08/23/17 19:00 67 08/23/17 19:00 92 Nasal Cannula 4.00 08/23/17 18:32 18 08/23/17 16:56 69 122/63 08/23/17 15:00 96 Nasal Cannula 5.00 08/23/17 15:00 69 08/23/17 15:00 97.9 71 18 95/56 (69) 99 I/O 08/23/17 08/23/17 08/23/17 08/24/17 08/24/17 08/24/17 07:00 15:00 23:00 07:00 15:00 23:00 Intake Total 872 ml 249.5 ml 100 ml Output Total 900 ml 510 ml 400 ml Balance -28 ml -260.5 ml -300 ml Intake Oral 100 ml IV Total 158.5 ml Tube Feeding 752 ml 91 ml Tube Irrigant 120 ml Output Urine Total 800 ml 480 ml 400 ml Chest Tube Drainage Total 100 ml 30 ml # Bowel Movements 0 0 1 Physical Exam GENERAL: SKIN: Warm and dry. HEAD: Normocephalic. EYES: No scleral icterus. No injection or drainage. NECK: Supple, trachea midline. No JVD or lymphadenopathy. CARDIOVASCULAR: Regular rate and rhythm without murmurs, gallops, or rubs. RESPIRATORY: Breath sounds equal bilaterally. No accessory muscle use. GASTROINTESTINAL: Abdomen soft, non-tender, nondistended. MUSCULOSKELETAL: No cyanosis, or edema. BACK: Nontender without obvious deformity. No CVA tenderness. Laboratory Laboratory Tests Test 08/24/17 04:00 White Blood Count 6.1 TH/MM3 Red Blood Count 2.79 MIL/MM3 Hemoglobin 9.1 GM/DL Hematocrit 25.7 % Mean Corpuscular Volume 92.0 FL Mean Corpuscular Hemoglobin 32.7 PG Mean Corpuscular Hemoglobin Concent 35.5 % Red Cell Distribution Width 14.2 % Platelet Count 131 TH/MM3 Mean Platelet Volume 8.3 FL Blood Urea Nitrogen 13 MG/DL Creatinine 0.56 MG/DL Random Glucose 137 MG/DL Calcium Level 7.6 MG/DL Sodium Level 139 MEQ/L Potassium Level 3.9 MEQ/L Chloride Level 103 MEQ/L Carbon Dioxide Level 31.2 MEQ/L Anion Gap 5 MEQ/L Estimat Glomerular Filtration Rate 140 ML/MIN Assessment and Plan Problem List: (1) BPH (benign prostatic hyperplasia) ICD Codes: N40.0 - Benign prostatic hyperplasia without lower urinary tract symptoms (2) S/P CABG x 3 ICD Codes: Z95.1 - Presence of aortocoronary bypass graft (3) CAD (coronary artery disease) ICD Codes: I25.10 - Atherosclerotic heart disease of platinum coronary artery without angina pectoris (4) Diabetes mellitus ICD Codes: E11.9 - Type 2 diabetes mellitus without complications (5) PAD (peripheral artery disease) ICD Codes: I73.9 - Peripheral vascular disease, unspecified (6) Angina pectoris ICD Codes: I20.9 - Angina pectoris, unspecified (7) Syncopal episodes ICD Codes: R55 - Syncope and collapse (8) Afib ICD Codes: I48.91 - Unspecified atrial fibrillation Assessment and Plan 1.) pod#5 cabg - wean vent as tolerated, continue aspirin 81 mg qd, lipitor 80 hs, coreg 3.125 mg bid 2.) PAF - on amio, chads score = 3, ac when cleared by ct surgery 3.) Encephalopathy - neuro following, mri with no acute findings, improving 4.) Spinal stenosis - c collar in place, neurosurg following Scott Aviles MD Aug 24, 2017 13:16
[2017-08-24] MEDS: oxyCODONE/ACETAMINOPHEN 5 MG/325 MG TAB PO PRN (19:45)
[2017-08-24] MEDS: SENNOSIDES 8.6 MG TAB PO SCH (21:00)
[2017-08-24] MEDS: LATANOPROST 0.005% OPHT SOLN 2.5 ML BTL EACH EYE SCH (21:43)
[2017-08-24] MEDS: GABAPENTIN 100 MG CAP PO SCH (21:43)
[2017-08-24] MEDS: VENLAFAXINE HCL XR 75 MG CAP PO SCH (21:43)
[2017-08-24] MEDS: DONEPEZIL HCL 5 MG TAB PO SCH (21:43)
[2017-08-24] MEDS: TAMSULOSIN HCL 0.4 MG CAP PO SCH (21:43)
[2017-08-25] VITALS (29 sets, daily range): BP systolic 84–127; BP diastolic 52–61; PULSE 56–98; RESP 14–18; TEMP 97.2–98.2; O2SAT 94–99
[2017-08-25] MEDS: DEXT 5%-NACL 0.45% 1000 ML INJ 1,000 ML IV SCH ×2 (01:15→14:05)
[2017-08-25] MEDS: PANTOPRAZOLE SODIUM 40 MG VIAL IV PUSH SCH (05:06)
[2017-08-25 05:36] LABS: HEMATOCRIT 24.8 % (39.0-51.0); MEAN CELL VOLUME 92.5 FL (80.0-100.0); MEAN CORPUSCULAR HEMOGLOBIN 32.3 PG (27.0-34.0); MEAN CORPUSCULAR HGB CONC 34.9 % (32.0-36.0); PLATELET COUNT 162 TH/MM3 (150-450); RED BLOOD COUNT 2.68 MIL/MM3 (4.50-5.90); RED CELL DISTRIBUTION WIDTH 13.8 % (11.6-17.2); REVIEW FLAG FINAL; WHITE BLOOD COUNT 6.4 TH/MM3 (4.0-11.0)
[2017-08-25 06:02] LABS: POTASSIUM 3.8 MEQ/L (3.5-5.1)
[2017-08-25] MEDS: CHLORHEXIDINE 0.12% (ORAL KIT) 15 ML CUP MT SCH ×2 (07:31→20:00)
[2017-08-25] MEDS: INSULIN ASPART SUPPLEMENTAL SCALE SQ SCH ×2 (07:32→12:00)
--- NOTE | 2017-08-25 07:38 | PD.CARD.PN ---
Subjective Subjective Remarks alert in nad, transferring with assistance from comode to bedside Objective Medications Current Medications Medications (Trade) Dose Ordered Sig/Keren Route Start Time Stop Time Status Last Admin (NS Flush) 2 ml BID IV FLUSH 08/19/17 21:00 08/24/17 21:43 (NS Flush) 2 ml UNSCH PRN IV FLUSH 08/19/17 11:00 (Aspirin Chew) 81 mg DAILY PO 08/20/17 09:00 08/24/17 08:51 (Tylenol) 650 mg Q4H PRN PO 08/19/17 11:00 08/23/17 17:30 (Percocet 5-325 Mg) 1 tab Q3H PRN PO 08/19/17 11:00 08/24/17 19:45 (Zofran Inj) 4 mg Q6H PRN IV PUSH 08/19/17 11:00 08/20/17 08:26 (Apresoline Inj) 10 mg Q4H PRN IV PUSH 08/19/17 11:00 (Lopressor Inj) 2.5 mg Q1H PRN IV PUSH 08/19/17 11:00 (Duoneb Neb) 1 ampule Q2HR NEB PRN NEB 08/19/17 11:00 (Aricept) 5 mg HS PO 08/19/17 21:00 08/24/17 21:43 (Cosopt 2-0.5% Opth Soln) 1 drop BID EACH EYE 08/19/17 21:00 08/24/17 21:43 (Xalatan 0.005% Opth Soln) 1 drop HS EACH EYE 08/19/17 21:00 08/24/17 21:43 (Flomax) 0.4 mg HS PO 08/19/17 21:00 08/24/17 21:43 (Effexor Xr) 150 mg HS PO 08/19/17 21:00 08/24/17 21:43 (Lipitor) 80 mg DAILY PO 08/20/17 09:00 08/24/17 08:50 (Coreg) 3.125 mg BID PO 08/20/17 10:00 08/24/17 21:43 (Neurontin) 100 mg HS PO 08/20/17 21:00 08/24/17 21:43 (Colace) 100 mg BID PO 08/20/17 21:00 08/24/17 08:50 (Theragran M Tab) 1 tab DAILY PO 08/20/17 10:15 08/24/17 08:50 (Milk Of Magnesia Liq) 30 ml DAILY PO 08/20/17 10:30 08/24/17 08:51 (Dulcolax Supp) 10 mg UNSCH PRN RECTAL 08/20/17 08:45 (Miralax) 17 gm DAILY PO 08/21/17 09:00 08/24/17 08:50 (Senokot) 8.6 mg HS PO 08/20/17 21:00 08/23/17 20:24 (Fleets Enema (Adult)) 133 ml UNSCH PRN RECTAL 08/20/17 08:45 (D50w (Vial) Inj) 50 ml UNSCH PRN IV PUSH 08/20/17 08:45 (Glucagon Inj) 1 mg UNSCH PRN OTHER 08/20/17 08:45 (NovoLOG SUPPLEMENTAL SCALE) 1 ACHS SQ 08/21/17 12:00 08/24/17 17:00 (Peridex 0.12% Liq) 15 ml BID@08,20 MT 08/20/17 20:00 08/23/17 07:55 (Protonix Inj) 40 mg Q24H IV PUSH 08/21/17 06:00 08/25/17 05:06 Levetriacetam 750 mg/Sodium Chloride 107.5 ml @ 215 mls/hr Q12H IV 08/20/17 22:30 08/24/17 21:44 Dextrose/Sodium Chloride 1,000 ml @ 75 mls/hr [id number] IV 08/21/17 17:15 08/22/17 06:02 (Cordarone) 400 mg Q12HR PO 08/22/17 09:00 08/24/17 21:43 Phenylephrine HCl 80 mg/Dextrose 500 ml @ 15 mls/hr TITRATE PRN IV 08/22/17 14:00 08/22/17 14:00 (Brethine Inj) 1 mg UNSCH PRN SQ 08/22/17 14:00 Vital Signs / I&O Vital Signs Date Time Temp Pulse Resp B/P (MAP) Pulse Ox O2 Delivery O2 Flow Rate FiO2 08/25/17 07:00 62 08/25/17 06:07 59 08/25/17 05:26 61 08/25/17 04:13 60 08/25/17 03:19 99 Nasal Cannula 2.00 08/25/17 03:19 59 08/25/17 03:19 98.2 62 16 92/52 (65) 99 08/25/17 02:18 64 08/25/17 01:25 60 08/25/17 00:25 60 08/24/17 23:15 100 Nasal Cannula 2.00 08/24/17 23:15 60 08/24/17 23:15 97.8 59 16 91/54 (66) 100 08/24/17 22:30 64 08/24/17 21:15 62 08/24/17 20:15 60 08/24/17 20:15 99 Nasal Cannula 3.00 08/24/17 19:20 98.0 51 18 105/55 (72) 98 08/24/17 19:20 58 08/24/17 19:20 98 3.00 08/24/17 18:09 70 08/24/17 17:00 62 08/24/17 16:00 79 08/24/17 16:00 98 Nasal Cannula 3.00 08/24/17 15:30 98.5 62 18 136/63 (87) 98 08/24/17 15:00 70 08/24/17 14:04 62 08/24/17 13:00 64 08/24/17 12:00 60 08/24/17 12:00 98 Nasal Cannula 3.00 08/24/17 12:00 98.5 66 18 138/68 (91) 100 08/24/17 11:00 70 08/24/17 10:00 98 Nasal Cannula 4.00 08/24/17 10:00 68 08/24/17 10:00 64 20 107/55 (72) 98 08/24/17 07:56 95 Nasal Cannula 4.00 I/O 08/24/17 08/24/17 08/24/17 08/25/17 08/25/17 08/25/17 07:00 15:00 23:00 07:00 15:00 23:00 Intake Total 100 ml 780 ml 338 ml Output Total 400 ml Balance -300 ml 780 ml 338 ml Intake Oral 100 ml 680 ml 240 ml IV Total 100 ml 98 ml Output Urine Total 400 ml # Voids 3 0 # Bowel Movements 1 0 Physical Exam GENERAL: SKIN: Warm and dry. HEAD: Normocephalic. EYES: No scleral icterus. No injection or drainage. NECK: Supple, trachea midline. No JVD or lymphadenopathy. CARDIOVASCULAR: Regular rate and rhythm without murmurs, gallops, or rubs. RESPIRATORY: Breath sounds equal bilaterally. No accessory muscle use. GASTROINTESTINAL: Abdomen soft, non-tender, nondistended. MUSCULOSKELETAL: No cyanosis, or edema. BACK: Nontender without obvious deformity. No CVA tenderness. Laboratory Laboratory Tests Test 08/25/17 05:00 White Blood Count 6.4 TH/MM3 Red Blood Count 2.68 MIL/MM3 Hemoglobin 8.6 GM/DL Hematocrit 24.8 % Mean Corpuscular Volume 92.5 FL Mean Corpuscular Hemoglobin 32.3 PG Mean Corpuscular Hemoglobin Concent 34.9 % Red Cell Distribution Width 13.8 % Platelet Count 162 TH/MM3 Mean Platelet Volume 7.8 FL Blood Urea Nitrogen 14 MG/DL Creatinine 0.55 MG/DL Random Glucose 124 MG/DL Calcium Level 7.6 MG/DL Sodium Level 139 MEQ/L Potassium Level 3.8 MEQ/L Chloride Level 102 MEQ/L Carbon Dioxide Level 31.0 MEQ/L Anion Gap 6 MEQ/L Estimat Glomerular Filtration Rate 143 ML/MIN Assessment and Plan Problem List: (1) BPH (benign prostatic hyperplasia) ICD Codes: N40.0 - Benign prostatic hyperplasia without lower urinary tract symptoms (2) S/P CABG x 3 ICD Codes: Z95.1 - Presence of aortocoronary bypass graft (3) CAD (coronary artery disease) ICD Codes: I25.10 - Atherosclerotic heart disease of [place] coronary artery without angina pectoris (4) Diabetes mellitus ICD Codes: E11.9 - Type 2 diabetes mellitus without complications (5) PAD (peripheral artery disease) ICD Codes: I73.9 - Peripheral vascular disease, unspecified (6) Angina pectoris ICD Codes: I20.9 - Angina pectoris, unspecified (7) Syncopal episodes ICD Codes: R55 - Syncope and collapse (8) Afib ICD Codes: I48.91 - Unspecified atrial fibrillation Assessment and Plan 1.) pod#6 cabg - wean vent as tolerated, continue aspirin 81 mg qd, lipitor 80 hs, coreg 3.125 mg bid 2.) PAF - on amio, chads score = 3, ac when cleared by ct surgery 3.) Encephalopathy - neuro following, mri with no acute findings, improving 4.) Spinal stenosis - c collar in place, neurosurg following Scott Aviles MD Aug 25, 2017 07:38
[2017-08-25] MEDS: MAGNESIUM HYDROXIDE SUSP 30 ML CUP PO SCH (09:00)
[2017-08-25] MEDS: POLYETHYLENE GLYCOL 17 GM PKG PO SCH (09:00)
[2017-08-25] MEDS: DOCUSATE SODIUM 100 MG CAP PO SCH ×2 (09:00→21:33)
[2017-08-25] MEDS: CARVEDILOL 3.125 MG TAB PO SCH ×2 (09:00→21:32)
[2017-08-25] MEDS: SODIUM CHLORIDE 0.9% FLUSH 10 ML FLUSH IV FLUSH SCH ×2 (09:01→21:32)
[2017-08-25] MEDS: ASPIRIN 81 MG CHEW TAB PO SCH (09:01)
[2017-08-25] MEDS: DORZOLAMIDE/TIMOLOL OPTH SOLN 10 ML BTL EACH EYE SCH ×2 (09:01→21:30)
[2017-08-25] MEDS: AMIODARONE 200 MG TAB PO SCH ×2 (09:01→21:34)
[2017-08-25] MEDS: MULTIVITAMINS/MINERALS THERAPEUTIC TAB PO SCH (09:01)
[2017-08-25] MEDS: ATORVASTATIN 80 MG TAB PO SCH (09:01)
[2017-08-25] MEDS: ACETAMINOPHEN 325 MG TAB PO PRN ×2 (09:06→13:57)
[2017-08-25] MEDS: levETIRAcetam INJ 750 MG in SODIUM CHLORIDE 0.9% INJ 100 ML IV SCH (11:39)
--- NOTE | 2017-08-25 12:51 | PD.CAR.PN ---
CVT Progress Note CVT: POD #: 6 Subjective/Hospital Course: 82/ male hx of recent chest pain , unstable angina, + stress / underwent heart cath multi vessel disease EF 50% admitted electively for surgery PMH: CAD, DM, PAD, vertigo , BPH, glaucoma surgery :08/19 CABG x 3 CAIN to LAD - very poor SVG to OM1 - fair SVG to PDA - fair EVH 08/20 pt did well this am alert and oriented , extubated after surgery , did c/o of nausea and lightheadedness this am after getting up from chair to bed was called later in am 9:55 am 11/27 , patient was ambulatory in the hallway with acutely became unresponsive with a leftward gaze at approximately 955. This patient was placed in a chair and moved directly to his room in 446. Patient was emergently intubated for airway protection using Midazolan and rocuronium. Stroke alert was called. Stat CT brain/CTA head and neck revealed no acute timings. Not a candidate for TPA due to recent CABG. He currently undergoing. Patient is currently hemodynamically stable as the course of day pt more awake, opens eyes and attempts to track, not on any sedation, spoke in depth with son remains intubated, eval for more alertness in am , appreciate Neuro and [facility] chest tubes remain in place 08/21 pt placed on keppra and propofol last pm, per nursing staff, pt had jerky movements to left side of face, left arm and leg despite EEG showing no evidence of seizure. BP labile while on propofol, fluid bolus given CCM following , chest tube left in place while pt on vent pt remains on vent not opening eyes, or following commands MRI Brain pending 08/22/17 Improving. Following commands, weaning from ventilator tube feeds started 08/23/17 alert, oriented. Following commands appropriately c/o lower abdominal pain 08/24/17 Awake and alert, improving strength, c/o neck pain/stiffness 08/25/17 c/o some confusion today Otherwise ready for rehab placement Also waiting on disposition from neurosurgery Objective: Vital Signs Date Time Temp Pulse Resp B/P (MAP) Pulse Ox O2 Delivery O2 Flow Rate FiO2 08/25/17 11:34 97.2 08/25/17 11:25 94 Room Air 2.00 08/25/17 11:17 68 18 127/61 (83) 99 08/25/17 09:00 61 08/25/17 08:00 60 08/25/17 08:00 97 Nasal Cannula 2.00 08/25/17 07:39 97.8 64 18 100/54 (69) 97 08/25/17 07:00 62 08/25/17 06:07 59 08/25/17 05:26 61 08/25/17 04:13 60 08/25/17 03:19 99 Nasal Cannula 2.00 08/25/17 03:19 59 08/25/17 03:19 98.2 62 16 92/52 (65) 99 08/25/17 02:18 64 08/25/17 01:25 60 08/25/17 00:25 60 08/24/17 23:15 100 Nasal Cannula 2.00 08/24/17 23:15 60 08/24/17 23:15 97.8 59 16 91/54 (66) 100 08/24/17 22:30 64 08/24/17 21:15 62 08/24/17 20:15 60 08/24/17 20:15 99 Nasal Cannula 3.00 08/24/17 19:20 98.0 51 18 105/55 (72) 98 08/24/17 19:20 58 08/24/17 19:20 98 3.00 08/24/17 18:09 70 08/24/17 17:00 62 08/24/17 16:00 79 08/24/17 16:00 98 Nasal Cannula 3.00 08/24/17 15:30 98.5 62 18 136/63 (87) 98 08/24/17 15:00 70 08/24/17 14:04 62 08/24/17 13:00 64 Labs: Laboratory Tests Test 08/25/17 05:00 White Blood Count 6.4 TH/MM3 (4.0-11.0) Red Blood Count 2.68 MIL/MM3 (4.50-5.90) Hemoglobin 8.6 GM/DL (13.0-17.0) Hematocrit 24.8 % (39.0-51.0) Mean Corpuscular Volume 92.5 FL (80.0-100.0) Mean Corpuscular Hemoglobin 32.3 PG (27.0-34.0) Mean Corpuscular Hemoglobin Concent 34.9 % (32.0-36.0) Red Cell Distribution Width 13.8 % (11.6-17.2) Platelet Count 162 TH/MM3 (150-450) Mean Platelet Volume 7.8 FL (7.0-11.0) Blood Urea Nitrogen 14 MG/DL (7-18) Creatinine 0.55 MG/DL (0.60-1.30) Random Glucose 124 MG/DL (74-106) Calcium Level 7.6 MG/DL (8.5-10.1) Sodium Level 139 MEQ/L (136-145) Potassium Level 3.8 MEQ/L (3.5-5.1) Chloride Level 102 MEQ/L (98-107) Carbon Dioxide Level 31.0 MEQ/L (21.0-32.0) Anion Gap 6 MEQ/L (5-15) Estimat Glomerular Filtration Rate 143 ML/MIN (>89) Result Diagram: 08/25/17 0500 08/25/17 0500 Cardiovascular: RRR Telemetry: NSR Pulmonary: CTA GI/: NABS, NT Incision: dry and intact Plan: Transfer to SNF tomorrow Neurosurgery disposition Will stop keppra and narcotics secondary to no documented seizures and confusion today. PT/OT (1) BPH (benign prostatic hyperplasia) (2) S/P CABG x 3 Plan: on ASA , amiodarone , BB on hold for SBP<100 (3) CAD (coronary artery disease) (4) Diabetes mellitus Plan: weaned off insulin gtt, on sliding scale (5) PAD (peripheral artery disease) Plan: on ASA, resume [place] when possible (6) Angina pectoris (7) Syncopal episodes Plan: s/p stroke alert EEG no evidence of seizures, some encephalopathy CTA head neck neg Neuro following MRI Brain pending (8) Afib Plan: on amiodarone Jackie Rogel MD Aug 25, 2017 12:51
[2017-08-25] MEDS: LATANOPROST 0.005% OPHT SOLN 2.5 ML BTL EACH EYE SCH (21:31)
[2017-08-25] MEDS: TAMSULOSIN HCL 0.4 MG CAP PO SCH (21:33)
[2017-08-25] MEDS: SENNOSIDES 8.6 MG TAB PO SCH (21:34)
[2017-08-25] MEDS: GABAPENTIN 100 MG CAP PO SCH (21:34)
[2017-08-25] MEDS: DONEPEZIL HCL 5 MG TAB PO SCH (21:34)
[2017-08-25] MEDS: VENLAFAXINE HCL XR 75 MG CAP PO SCH (21:34)
[2017-08-26] VITALS (12 sets, daily range): BP systolic 108–121; BP diastolic 53–58; PULSE 62–89; RESP 16–18; TEMP 97.6–98.4; O2SAT 92–96
[2017-08-26] MEDS: DEXT 5%-NACL 0.45% 1000 ML INJ 1,000 ML IV SCH (03:55)
[2017-08-26 04:42] LABS: HEMATOCRIT 27.9 % (39.0-51.0); MEAN CELL VOLUME 93.8 FL (80.0-100.0); MEAN CORPUSCULAR HEMOGLOBIN 32.2 PG (27.0-34.0); MEAN CORPUSCULAR HGB CONC 34.3 % (32.0-36.0); PLATELET COUNT 208 TH/MM3 (150-450); RED BLOOD COUNT 2.97 MIL/MM3 (4.50-5.90); REVIEW FLAG FINAL; WHITE BLOOD COUNT 6.8 TH/MM3 (4.0-11.0)
[2017-08-26 05:06] LABS: BICARBONATE 24.6 MEQ/L (21.0-32.0); POTASSIUM 3.8 MEQ/L (3.5-5.1)
[2017-08-26] MEDS: PANTOPRAZOLE SODIUM 40 MG VIAL IV PUSH SCH (06:20)
[2017-08-26] MEDS: CHLORHEXIDINE 0.12% (ORAL KIT) 15 ML CUP MT SCH (08:00)
[2017-08-26] MEDS: ASPIRIN 81 MG CHEW TAB PO SCH (08:25)
[2017-08-26] MEDS: ATORVASTATIN 80 MG TAB PO SCH (08:26)
[2017-08-26] MEDS: AMIODARONE 200 MG TAB PO SCH (08:27)
[2017-08-26] MEDS: MULTIVITAMINS/MINERALS THERAPEUTIC TAB PO SCH (08:27)
[2017-08-26] MEDS: CARVEDILOL 3.125 MG TAB PO SCH (08:28)
[2017-08-26] MEDS: DOCUSATE SODIUM 100 MG CAP PO SCH (08:29)
[2017-08-26] MEDS: MAGNESIUM HYDROXIDE SUSP 30 ML CUP PO SCH (08:29)
[2017-08-26] MEDS: SODIUM CHLORIDE 0.9% FLUSH 10 ML FLUSH IV FLUSH SCH (08:30)
[2017-08-26] MEDS: DORZOLAMIDE/TIMOLOL OPTH SOLN 10 ML BTL EACH EYE SCH (08:30)
[2017-08-26] MEDS: POLYETHYLENE GLYCOL 17 GM PKG PO SCH (08:31)
[2017-08-26] MEDS ORDERED: AMIO200T PO (09:59)
--- NOTE | 2017-08-26 10:08 | HHI.DS ---
Discharge Summary Admission Date Aug 19, 2017 at 05:19 Discharge Date: Aug 26, 2017 Admitting Diagnosis Multivessel CAD Angina pectoris (1) CAD (coronary artery disease) Diagnosis: Principal ICD Codes: I25.10 - Atherosclerotic heart disease of [place] coronary artery without angina pectoris (2) Angina pectoris Diagnosis: Principal ICD Codes: I20.9 - Angina pectoris, unspecified (3) Diabetes mellitus Diagnosis: Secondary ICD Codes: E11.9 - Type 2 diabetes mellitus without complications (4) PAD (peripheral artery disease) Diagnosis: Secondary ICD Codes: I73.9 - Peripheral vascular disease, unspecified (5) BPH (benign prostatic hyperplasia) Diagnosis: Secondary ICD Codes: N40.0 - Benign prostatic hyperplasia without lower urinary tract symptoms (6) Syncopal episodes Diagnosis: Secondary ICD Codes: R55 - Syncope and collapse (7) Afib Diagnosis: Secondary ICD Codes: I48.91 - Unspecified atrial fibrillation (8) S/P CABG x 3 Diagnosis: Principal ICD Codes: Z95.1 - Presence of aortocoronary bypass graft (9) Spinal stenosis in cervical region Diagnosis: Principal ICD Codes: M48.02 - Spinal stenosis, cervical region Status: Acute Procedures CABG BRAIN MRI C-SPINE MRI HEAD CT Brief History Subjective/Hospital Course: 82/ male hx of recent chest pain , unstable angina, + stress / underwent heart cath multi vessel disease EF 50% admitted electively for surgery PMH: CAD, DM, PAD, vertigo , BPH, glaucoma surgery :08/19 CABG x 3 CAIN to LAD - very poor SVG to OM1 - fair SVG to PDA - fair EVH CBC/BMP: 08/26/17 0429 08/26/17 0429 Significant Findings Laboratory Tests Test 08/24/17 04:00 08/25/17 05:00 08/26/17 04:29 Red Blood Count 2.79 MIL/MM3 (4.50-5.90) 2.68 MIL/MM3 (4.50-5.90) 2.97 MIL/MM3 (4.50-5.90) Hemoglobin 9.1 GM/DL (13.0-17.0) 8.6 GM/DL (13.0-17.0) 9.6 GM/DL (13.0-17.0) Hematocrit 25.7 % (39.0-51.0) 24.8 % (39.0-51.0) 27.9 % (39.0-51.0) Platelet Count 131 TH/MM3 (150-450) Creatinine 0.56 MG/DL (0.60-1.30) 0.55 MG/DL (0.60-1.30) 0.59 MG/DL (0.60-1.30) Random Glucose 137 MG/DL (74-106) 124 MG/DL (74-106) 111 MG/DL (74-106) Calcium Level 7.6 MG/DL (8.5-10.1) 7.6 MG/DL (8.5-10.1) 7.9 MG/DL (8.5-10.1) Imaging Last Impressions Brain MRI 08/21/17 1427 Signed Impressions: Service Date/Time: Monday, August 21, 2017 17:35 - CONCLUSION: 1. No acute findings. Cortical volume loss. Abnormal hypertrophy around the dens. MRI cervical spine pending. Jarrell Little MD Chest X-Ray 08/21/17 0600 Signed Impressions: Service Date/Time: Monday, August 21, 2017 04:40 - CONCLUSION: No significant change. Yakov Calderón MD Cervical Spine MRI 08/21/17 0000 Signed Impressions: Service Date/Time: Monday, August 21, 2017 17:35 - CONCLUSION: 1. Abnormal hypertrophic change around the dens resulting in a moderate lateral recess stenosis on the right at the craniocervical junction with encroachment on the right hemicord and some cord deflection. No cord edema. 2. At C3-4 there is mild to moderate canal stenosis effacing the thecal sac. No cord edema. 3. Previous fusion at C6-7. No acute fracture. Jarrell Little MD Neck CTA 08/20/17 0000 Signed Impressions: Service Date/Time: July 10:49 - CONCLUSION: 1. There is moderate calcified atherosclerotic plaquing at both carotid bifurcations. 2. No significant focal or high-grade stenosis is demonstrated. 3. There is tortuosity of the left internal carotid artery. Kedar Smith MD Head CTA 08/20/17 0000 Signed Impressions: Service Date/Time: July 10:49 - CONCLUSION: 1. Negative CTA examination of the head. Specifically, no evidence for large vessel occlusion. Dragan Oreilly MD Head CT 08/20/17 0000 Signed Impressions: Service Date/Time: July 10:35 - CONCLUSION: 1. Senescent changes. 2. No acute intracranial abnormality. 3. Left maxillar sinus disease. Dragan Oreilly MD PE at Discharge chest - CTA COR - RRR ABD - soft, NT wound - dry and intact Transfer Summary WILL NEED FOLLOW-UP WITH DR. MARCOS NOLAN REGARDING DISPOSITION OF CERVICAL STENOSIS AND DURATION OF CERVICAL COLLAR USE. Hospital Course 08/20 pt did well this am alert and oriented , extubated after surgery , did c/o of nausea and lightheadedness this am after getting up from chair to bed was called later in am 9:55 am 11/27 , patient was ambulatory in the hallway with acutely became unresponsive with a leftward gaze at approximately 955. This patient was placed in a chair and moved directly to his room in 446. Patient was emergently intubated for airway protection using Midazolan and rocuronium. Stroke alert was called. Stat CT brain/CTA head and neck revealed no acute timings. Not a candidate for TPA due to recent CABG. He currently undergoing. Patient is currently hemodynamically stable as the course of day pt more awake, opens eyes and attempts to track, not on any sedation, spoke in depth with son remains intubated, eval for more alertness in am , appreciate Neuro and [facility] chest tubes remain in place 08/21 pt placed on keppra and propofol last pm, per nursing staff, pt had jerky movements to left side of face, left arm and leg despite EEG showing no evidence of seizure. BP labile while on propofol, fluid bolus given CCM following , chest tube left in place while pt on vent pt remains on vent not opening eyes, or following commands MRI Brain pending 08/22/17 Improving. Following commands, weaning from ventilator tube feeds started 08/23/17 alert, oriented. Following commands appropriately c/o lower abdominal pain 08/24/17 Awake and alert, improving strength, c/o neck pain/stiffness 08/25/17 c/o some confusion today Otherwise ready for rehab placement Also waiting on disposition from neurosurgery 08/26/17 Doing well this morning, no further neurologic issues. Will transfer to rehab with hard cervical collar secondary to spinal stenosis which is thought to have caused his postoperative respiratory failure and unresponsiveness when he hyperextended his neck. Apparently, he has had syncopal episodes at home with this as well. Pt Condition on Discharge: Good Discharge Disposition: Rehab Inpatient Discharge Instructions DIET: Follow Instructions for: Heart Healthy Diet Activities you can perform: Weight Bearing as [place], Shower Only-No Bath Activities to avoid: Lifting/Bending, Driving Follow up Referrals: Cardiology with Scott Aviles MD PCP Follow-up with Dr. Michele Meehan Surgical with Dr. Jackie Rogel New Orders: BASIC METABOLIC PROF - 2 Weeks CBC NO DIFF - 2 Weeks X-RAY CHEST PA & LAT - 2 Weeks New Medications: Amiodarone (Amiodarone) 200 Mg Tab 200 MG PO Q12HR for Regulate Heart Beat for 14 Days, TAB Continued Medications: Alpha Lipoic Acid (Alpha Lipoic Acid) 600 Mg Cap 600 MG PO BID for Nutritional Supplement, CAP 0 Refills Aspirin (Aspirin) 81 Mg Chew 81 MG CHEW BID, TAB 0 Refills Slmvsqofgv-Zlhaafiedevpz-Jgsibxqd (Qbmrqochze-Olyionswkcbyn-Plyfapbb) 50-325-40 Mg Cap 1 TAB PO DAILY PRN for HEADACHE, CAP Do not exceed 6 capsules/day. Calcium Carbonate-Vitamin D (Calcium/Vitamin D) 600-400 Mg-Unit Tab 1 TAB PO BID for Calcium Supplement, TAB 0 Refills Carvedilol (Carvedilol) 6.25 Mg Tab 3.125 MG PO BID, #60 TAB 0 Refills Cholecalciferol (Vitamin D3) 1,000 Unit Tab 1000 UNITS PO DAILY for Nutritional Supplement, #1 BOTTLE 0 Refills Cyanocobalamin (Vitamin B-12) 500 Mcg Tab 500 MCG PO DAILY for Nutritional Supplement, #1 BOTTLE 0 Refills Donepezil (Donepezil) 5 Mg Tab 5 MG PO HS for Dementia, #30 TAB 0 Refills Dorzolamide-Timolol Opth Drops (Dorzolamide-Timolol Opth Drops) 22.3-6.8 Mg/Ml Soln 1 DROP EACH EYE BID for Glaucoma, BOTTLE 0 Refills Fish Oil-Cholecalciferol ([place]-3 Fish Oil/Vitamin) 1,000-1,000 Mg Cap 1 CAP PO BID for Nutritional Supplement, CAP 0 Refills Gabapentin (Gabapentin) 100 Mg Cap 100 MG PO HS, #30 CAP 0 Refills Insulin Glargine Inj (Lantus Inj) 1,000 Unit/10 Ml Vial 36 UNITS SQ HS for Blood Sugar Management, VIAL 0 Refills d-Svgrlbnqehvj-Zxjvb (Deplin) 15 Mg Cap 1 CAP PO DAILY Latanoprost Opth Drops (Latanoprost Opth Drops) 0.005% Drops 1 DROP EACH EYE HS for Glaucoma, #2.5 ML 0 Refills Refrigerate until opened. Magnesium Oxide (Magnesium Oxide) 500 Mg Tab 500 MG PO DAILY, TAB 0 Refills Melatonin (Melatonin) 5 Mg Tab 3 MG PO HS PRN for SLEEP, TAB 0 Refills Methocarbamol (Methocarbamol) 500 Mg Tab 500 MG PO BID PRN for MUSCLE PAIN, #90 TAB 0 Refills Omeprazole (Omeprazole) 20 Mg Tab 20 MG PO BIDAC, #30 TAB 0 Refills Pentoxifylline ER (Pentoxifylline ER) 400 Mg Tab 400 MG PO DAILY for Intermittent claudication, #30 TAB 0 Refills Rosuvastatin (Crestor) 40 Mg Tab 40 MG PO DAILY for Cholesterol Management, #30 TAB 0 Refills Sitagliptin-Metformin ER (Janumet Xr) 50-500 Mg Tab 1 TAB PO DAILY for Blood Sugar Management, #30 TAB 0 Refills Tamsulosin (Tamsulosin) 0.4 Mg Cap 0.4 MG PO HS for Manage Prostate Problems, #30 CAP 0 Refills Venlafaxine ER 24 HR (Venlafaxine ER 24 HR) 150 Mg Tab 150 MG PO HS, #30 TAB 0 Refills Zolpidem (Zolpidem) 10 Mg Tab 10 MG PO HS PRN for INSOMNIA, TAB 0 Refills Discontinued Medications: Lisinopril (Lisinopril) 10 Mg Tab 5 MG PO DAILY, #30 TAB 0 Refills Jackie Rogel MD Aug 26, 2017 10:08
== END 2017-08-26 09:07 | DRG 235 ==
LOC: HSDI 05:19 → HCVI 11:47 → HCPC 08-24 09:35
PROVIDERS: ADMIT Thoracic Surgery (Cardiothoracic Vascular Surgery); ATTEND Thoracic Surgery (Cardiothoracic Vascular Surgery)
PROC: 06BQ4ZZ Excision of Left Saphenous Vein, Percutaneous Endoscopic Approach (ICD-10-PCS; 2017-08-19)
PROC: 5A1221Z Performance of Cardiac Output, Continuous (ICD-10-PCS; 2017-08-19)
PROC: 02100Z9 Bypass Coronary Artery, One Artery from Left Internal Mammary, Open Approach (ICD-10-PCS; principal; 2017-08-19 06:58)
PROC: 021109W Bypass Coronary Artery, Two Arteries from Aorta with Autologous Venous Tissue, Open Approach (ICD-10-PCS; 2017-08-19 06:58)
PROC: 0BH17EZ Insertion of Endotracheal Airway into Trachea, Via Natural or Artificial Opening (ICD-10-PCS; 2017-08-20)
PROC: 5A1945Z Respiratory Ventilation, 24-96 Consecutive Hours (ICD-10-PCS; 2017-08-20)
DX: I25.119 Atherosclerotic heart disease of native coronary artery with unspecified angina pectoris (principal); G93.40 Encephalopathy, unspecified; J95.821 Acute postprocedural respiratory failure; G82.50 Quadriplegia, unspecified; I42.9 Cardiomyopathy, unspecified; I48.0 Paroxysmal atrial fibrillation; G62.9 Polyneuropathy, unspecified; F03.90 Unspecified dementia, unspecified severity, without behavioral disturbance, psychotic disturbance, mood disturbance, and anxiety; M48.02 Spinal stenosis, cervical region; I10 Essential (primary) hypertension; F32.9 Major depressive disorder, single episode, unspecified; E11.9 Type 2 diabetes mellitus without complications; D64.9 Anemia, unspecified; R55 Syncope and collapse; G43.909 Migraine, unspecified, not intractable, without status migrainosus; I65.29 Occlusion and stenosis of unspecified carotid artery; I73.9 Peripheral vascular disease, unspecified; E78.5 Hyperlipidemia, unspecified; D72.829 Elevated white blood cell count, unspecified; K21.9 Gastro-esophageal reflux disease without esophagitis; N40.0 Benign prostatic hyperplasia without lower urinary tract symptoms; M54.5 Low back pain; G89.29 Other chronic pain; G47.33 Obstructive sleep apnea (adult) (pediatric); F41.9 Anxiety disorder, unspecified; H40.9 Unspecified glaucoma; M19.90 Unspecified osteoarthritis, unspecified site; Z96.653 Presence of artificial knee joint, bilateral; Z98.1 Arthrodesis status; Z87.891 Personal history of nicotine dependence; Z87.442 Personal history of urinary calculi
CPT/HCPCS: 31500; 36600; 70450; 70496; 70498; 70551; 71010; 72141; 80048; 80061; 82435; 82550; 82565; 82805; 82947; 82948; 83605; 83735; 84132; 84155; 84295; 84484; 84520; 85014; 85025; 85027; 85384; 85610; 85730; 86850; 86900; 86901; 86920; 93005; 93308; 94003; 94150; 94640; 94664; 94667; 94668; 95819; C9113; C9248; J0131; J0171; J0282; J0461; J0690; J1644; J1815; J1817; J1953; J2060; J2150; J2250; J2370; J2405; J2930; J3010; J3370; J3475; J3480; J7030; J7060; J7120; L0172; P9047; Q9967